=== PATIENT | female | born 1940 | race Caucasian/White ===

== ENCOUNTER 2016-11-03 10:45 | Inpatient (IN) | payer OTHER, MEDICARE ==
[~2016-11-03] VITALS: Ht 160 cm; Wt 61.5 kg
[2016-11-03] VITALS (7 sets, daily range): BP systolic 99–143; BP diastolic 57–79; PULSE 65–98; RESP 16–18; TEMP 97.8–98.3; O2SAT 96–98
[~2016-11-03 10:45] MED LIST: LEVO.05 PO; LORTA5 PO; LOVA20TA PO; MOTR200T PO; OMEP20TA39 PO
[2016-11-03] MEDS ORDERED: SODIUM CHLOR 0.9% 1000 ML INJ 1,000 ML IV SCH (11:20)
[2016-11-03] MEDS ORDERED: SODIUM CHLORIDE 0.9% FLUSH 10 ML FLUSH IVF PRN (11:30)
--- NOTE | 2016-11-03 11:35 | PD ---
HPI Chief Complaint: General Weakness Time Seen by Provider: 11:30 Travel History International Travel<30 days: No Contact w/Intl Traveler<30days: No Traveled to known affect area: No History of Present Illness HPI Patient is a 76-year-old female presenting to the emergency department for evaluation of nausea, vomiting, diarrhea. Patient has been having the symptoms for the last 3-4 days. Son is at bedside and reports that she has been having dark stools however she is on iron therapy for anemia. Patient denies any shortness of breath, chest pain, generalized pain. She does report a decreased appetite but for the most part is able to maintain oral intake. She did vomit this morning. Son reports a 12 pound weight loss over the last 2 months as well. He states that her legs get weak and she has fallen over the last 2 months. She has no injuries to report today. Her past medical history significant for Ahn's esophagus, anemia, peripheral artery disease with stent placement and ulcers. Patient currently takes Plavix. PFSH Past Medical History Hx Anticoagulant Therapy: Yes Cancer: No Cardiovascular Problems: No Diabetes: No Diminished Hearing: No Gastrointestinal Disorders: Yes (Barretts esophagus) GERD: Yes Genitourinary: No Hepatitis: No Hiatal Hernia: No Hypertension: No Immune Disorder: No Medical other: Yes (peripheral artery disease with stent placement) Musculoskeletal: Yes (neck surgery with titanium plates arthritis) Neurologic: No Psychiatric: No Reproductive: No Respiratory: No Immunizations Current: Yes Thyroid Disease: Yes Menopausal: Yes Past Surgical History Abdominal Surgery: Yes (right inguinal hernia repair) Body Medical Devices: hardware in the neck Joint Replacement: No Pacemaker: No Other Surgery: Yes Social History Alcohol Use: Yes (3 glasses of wine daily) Tobacco Use: No Substance Use: No Allergies-Medications (Allergen,Severity, Reaction): Coded Allergies: No Known Allergies (Unverified , 09/29/13) Reported Meds & Prescriptions Reported Meds & Active Scripts Active Reported Plavix (Clopidogrel Bisulfate) 75 Mg Tab 75 Mg PO DAILY Levothyroxine (Levothyroxine Sodium) 75 Mcg Tab 75 Mcg PO DAILY Lipitor (Atorvastatin Calcium) 40 Mg Tab 40 Mg PO DAILY Trazodone (Trazodone HCl) 50 Mg Tab 75 Mg PO HS Review of Systems Except as stated in HPI: all other systems reviewed are Neg General / Constitutional: No: Fever, Chills Eyes: No: Blurred Vision HENT: No: Headaches Cardiovascular: No: Chest Pain or Discomfort Respiratory: No: Shortness of Breath Gastrointestinal: Positive: Nausea, Vomiting, Diarrhea, Other (dark stool), No : Abdominal Pain Genitourinary: No: Dysuria Musculoskeletal: No: Myalgias Neurologic: Positive: Weakness, No: Dizziness, Syncope, Focal Abnormalities, Change in Mentation, Slurred Speech Physical Exam Narrative GENERAL: Thin, well-developed, alert elderly female. Resting comfortably in no acute distress. SKIN: Warm and dry. HEAD: Atraumatic. Normocephalic. EYES: Pupils equal and round. No scleral icterus. No injection or drainage. ENT: No nasal bleeding or discharge. Mucous membranes pink and moist. NECK: Trachea midline. No JVD. CARDIOVASCULAR: Regular rate and rhythm. RESPIRATORY: No accessory muscle use. Clear to auscultation. Breath sounds equal bilaterally. GASTROINTESTINAL: Abdomen soft, non-tender, nondistended. Hepatic and splenic margins not palpable. Positive bowel sounds, no rebound, no guarding RECTAL EXAM: No masses or tenderness, stool is brown. MUSCULOSKELETAL: Extremities without clubbing, cyanosis, or edema. No obvious deformities. NEUROLOGICAL: Awake and alert. No obvious cranial nerve deficits. Motor grossly within normal limits. Five out of 5 muscle strength in the arms and legs. Normal speech. PSYCHIATRIC: Appropriate mood and affect; insight and judgment normal. Data Data Last Documented VS Vital Signs Date Time Temp Pulse Resp B/P Pulse Ox O2 Delivery O2 Flow Rate FiO2 11/03/16 12:55 97.8 98 17 123/60 98 Room Air Orders Complete Blood Count With Diff (11/03/16 11:20) Comprehensive Metabolic Panel (11/03/16 11:20) Lipase (11/03/16 11:20) Prothrombin Time / Inr (Pt) (11/03/16 11:20) Act Partial Throm Time (Ptt) (11/03/16 11:20) Urinalysis - C+S If Indicated (11/03/16 11:20) Type And Screen (11/03/16 11:20) Cath For Specimen (11/03/16 11:20) Ecg Monitoring (11/03/16 11:20) Iv Access Insert/Monitor (11/03/16 11:20) Orthostatic Vital Signs (11/03/16 11:20) Oximetry (11/03/16 11:20) Sodium Chlor 0.9% 1000 Ml Inj (Ns 1000 M (11/03/16 11:20) Sodium Chloride 0.9% Flush (Ns Flush) (11/03/16 11:30) Lactic Acid (11/03/16 11:20) Chest, Single Ap (11/03/16 ) Electrocardiogram (11/03/16 ) Pantoprazole Inj (Protonix Inj) (11/03/16 12:15) Potassium Chlor 20 Meq Premix (Kcl 20 Me (11/03/16 12:45) Potassium Chloride (Kcl) (11/03/16 12:45) Magnesium (Mg) (11/03/16 13:17) Labs Laboratory Tests Test 11/03/16 11:39 White Blood Count 10.0 TH/MM3 Red Blood Count 4.23 MIL/MM3 Hemoglobin 13.9 GM/DL Hematocrit 41.5 % Mean Corpuscular Volume 98.2 FL Mean Corpuscular Hemoglobin 32.8 PG Mean Corpuscular Hemoglobin 33.4 % Concent Red Cell Distribution Width 19.1 % Platelet Count 387 TH/MM3 Mean Platelet Volume 8.3 FL Neutrophils (%) (Auto) 75.9 % Lymphocytes (%) (Auto) 9.7 % Monocytes (%) (Auto) 12.8 % Eosinophils (%) (Auto) 1.0 % Basophils (%) (Auto) 0.6 % Neutrophils # (Auto) 7.6 TH/MM3 Lymphocytes # (Auto) 1.0 TH/MM3 Monocytes # (Auto) 1.3 TH/MM3 Eosinophils # (Auto) 0.1 TH/MM3 Basophils # (Auto) 0.1 TH/MM3 CBC Comment DIFF FINAL Differential Comment Prothrombin Time 10.3 SEC Prothromb Time International 0.9 RATIO Ratio Activated Partial 24.6 SEC Thromboplast Time Urine Color YELLOW Urine Turbidity HAZY Urine pH 6.0 Urine Specific [place] 1.026 Urine Protein 30 mg/dL Urine Glucose (UA) NEG mg/dL Urine Ketones NEG mg/dL Urine Occult Blood NEG Urine Nitrite NEG Urine Bilirubin NEG Urine Urobilinogen LESS THAN 2.0 MG/DL Urine Leukocyte Esterase MOD Urine RBC 2 /hpf Urine WBC 3 /hpf Urine Squamous Epithelial <1 /hpf Cells Urine Transitional Epithelial <1 /hpf Cells Urine Bacteria RARE /hpf Urine Hyaline Casts 73 /lpf Urine Mucus FEW /lpf Microscopic Urinalysis Comment CULT NOT INDICATED Sodium Level 137 MEQ/L Potassium Level 2.4 MEQ/L Chloride Level 102 MEQ/L Carbon Dioxide Level 25.1 MEQ/L Anion Gap 10 MEQ/L Blood Urea Nitrogen 14 MG/DL Creatinine 1.25 MG/DL Estimat Glomerular Filtration 42 ML/MIN Rate Random Glucose 100 MG/DL Lactic Acid Level 1.9 mmol/L Calcium Level 9.7 MG/DL Total Bilirubin 0.6 MG/DL Aspartate Amino Transf 24 U/L (AST/SGOT) Alanine Aminotransferase 16 U/L (ALT/SGPT) Alkaline Phosphatase 114 U/L Total Protein 8.3 GM/DL Albumin 4.1 GM/DL Lipase 126 U/L Blood Type O NEGATIVE Antibody Screen NEGATIVE Blood Bank Comment [facility] Medical Decision Making Medical Screen Exam Complete: Yes Emergency Medical Condition: Yes Medical Record Reviewed: Yes Interpretation(s) Last Impressions Chest X-Ray 11/03/16 0000 Signed Impressions: Service Date/Time: Thursday, November 03, 2016 12:04 - CONCLUSION: No acute cardiopulmonary abnormality is identified. Den Jean MD Laboratory Tests Test 11/03/16 11:39 White Blood Count 10.0 TH/MM3 Red Blood Count 4.23 MIL/MM3 Hemoglobin 13.9 GM/DL Hematocrit 41.5 % Mean Corpuscular Volume 98.2 FL Mean Corpuscular Hemoglobin 32.8 PG Mean Corpuscular Hemoglobin 33.4 % Concent Red Cell Distribution Width 19.1 % Platelet Count 387 TH/MM3 Mean Platelet Volume 8.3 FL Neutrophils (%) (Auto) 75.9 % Lymphocytes (%) (Auto) 9.7 % Monocytes (%) (Auto) 12.8 % Eosinophils (%) (Auto) 1.0 % Basophils (%) (Auto) 0.6 % Neutrophils # (Auto) 7.6 TH/MM3 Lymphocytes # (Auto) 1.0 TH/MM3 Monocytes # (Auto) 1.3 TH/MM3 Eosinophils # (Auto) 0.1 TH/MM3 Basophils # (Auto) 0.1 TH/MM3 CBC Comment DIFF FINAL Differential Comment Prothrombin Time 10.3 SEC Prothromb Time International 0.9 RATIO Ratio Activated Partial 24.6 SEC Thromboplast Time Urine Color YELLOW Urine Turbidity HAZY Urine pH 6.0 Urine Specific [place] 1.026 Urine Protein 30 mg/dL Urine Glucose (UA) NEG mg/dL Urine Ketones NEG mg/dL Urine Occult Blood NEG Urine Nitrite NEG Urine Bilirubin NEG Urine Urobilinogen LESS THAN 2.0 MG/DL Urine Leukocyte Esterase MOD Urine RBC 2 /hpf Urine WBC 3 /hpf Urine Squamous Epithelial <1 /hpf Cells Urine Transitional Epithelial <1 /hpf Cells Urine Bacteria RARE /hpf Urine Hyaline Casts 73 /lpf Urine Mucus FEW /lpf Microscopic Urinalysis Comment CULT NOT INDICATED Sodium Level 137 MEQ/L Potassium Level 2.4 MEQ/L Chloride Level 102 MEQ/L Carbon Dioxide Level 25.1 MEQ/L Anion Gap 10 MEQ/L Blood Urea Nitrogen 14 MG/DL Creatinine 1.25 MG/DL Estimat Glomerular Filtration 42 ML/MIN Rate Random Glucose 100 MG/DL Lactic Acid Level 1.9 mmol/L Calcium Level 9.7 MG/DL Total Bilirubin 0.6 MG/DL Aspartate Amino Transf 24 U/L (AST/SGOT) Alanine Aminotransferase 16 U/L (ALT/SGPT) Alkaline Phosphatase 114 U/L Total Protein 8.3 GM/DL Albumin 4.1 GM/DL Lipase 126 U/L Blood Type O NEGATIVE Antibody Screen NEGATIVE Blood Bank Comment Vital Signs Date Time Temp Pulse Resp B/P Pulse Ox O2 Delivery O2 Flow Rate FiO2 11/03/16 11:14 75 18 98 Room Air 11/03/16 10:46 98.3 83 16 106/76 97 Room Air Differential Diagnosis Anemia versus metabolic abnormality versus GI bleed versus gastroenteritis versus other Narrative Course Patient is a 76-year-old female presenting to emergency department evaluation of nausea, vomiting, diarrhea and dark stools. Hemoccult is positive, patient' s vital signs are stable, labs ordered and pending. IV access established, patient placed on telemetry monitoring and continuous pulse oximetry. Per her son's report she has appointment with Dr. Cabrera on the for an upper and lower endoscopy Initial EKG shows sinus rhythm with a rate of 71 with a right bundle branch block. Prior EKG in 2013 reviewed, no RBBB at that time. Orthostatic vital signs are positive, patient's systolic went from 143 down to 99. CBC with hemoglobin of 10, improved from prior in September 2016 CMP with a K+ 2.4 IV and oral replacement ordered. UA reviewed with no acute findings. Lactic acid 1.9 1L NS ordered and given CXR no acute findings [facility] paged for admit. Dr. Devries accepted admit. Order placed for full inpatient admission due to GI bleed and hypokalemia. Pt and family made aware of findings and plan. Pt is agreeable. HemaPrompt Point of Care Fecal Specimen Occult Blood: Positive Diagnosis Primary Impression: GI bleed Qualified Code: K92.2 - Gastrointestinal hemorrhage, unspecified gastrointestinal hemorrhage type Additional Impressions: Hypokalemia Nausea and vomiting Qualified Code: R11.2 - Non-intractable vomiting with nausea, unspecified vomiting type Orthostatic hypotension Admitting Information Admitting Physician Requests: Admit Condition: Stable Lanie Williamson [facility] Nov 03, 2016 11:35
[2016-11-03 12:04] LABS: AUTOMATED NEUTROPHIL # 7.6 TH/MM3 (1.8-7.7); BASOPHIL # 0.1 TH/MM3 (0-0.2); BASOPHIL % 0.6 % (0.0-2.0); EOSINOPHIL # 0.1 TH/MM3 (0-0.4); HEMATOCRIT 41.5 % (35.0-46.0); HEMO FLAGS DIFF FINAL; LYMPH % 9.7 % (9.0-44.0); MEAN CELL VOLUME 98.2 FL (80.0-100.0); MEAN CORPUSCULAR HEMOGLOBIN 32.8 PG (27.0-34.0); MEAN CORPUSCULAR HGB CONC 33.4 % (32.0-36.0); MONO % 12.8 % (0.0-8.0); NEUT % 75.9 % (16.0-70.0); PLATELET COUNT 387 TH/MM3 (150-450); RED BLOOD COUNT 4.23 MIL/MM3 (4.00-5.30); RED CELL DISTRIBUTION WIDTH 19.1 % (11.6-17.2)
[2016-11-03 12:11] LABS: BACTERIA, URINE RARE /hpf; BLOOD, URINE NEG (NEG); GLUCOSE,URINE NEG (NEG); HYALINE CAST, URINE 73 /lpf (RARE); KETONE, URINE NEG (NEG); MUCUS URINE FEW /lpf (OCC); NITRITE,URINE NEG (NEG); SQUAMOUS EPITHELIAL CELL URINE <1 /hpf (0-5); TRANSITIONAL EPI CELLS, URINE <1 /hpf; URINE COLOR YELLOW (YELLW/STRAW)
[2016-11-03 12:12] LABS: APTT (PATIENT) 24.6 SEC (24.3-30.1); INTERNATIONAL NORMALIZED RATIO 0.9 RATIO; PROTHROMBIN TIME - PATIENT 10.3 SEC (9.8-11.6)
[2016-11-03] MEDS ORDERED: PANTOPRAZOLE SODIUM 40 MG VIAL IV PUSH ONE (12:15)
[2016-11-03] MEDS ORDERED: LIPI40TA PO (12:17)
[2016-11-03] MEDS ORDERED: LEVO75TA3 PO (12:17)
[2016-11-03] MEDS ORDERED: PLAV75TA29 PO (12:17)
[2016-11-03] MEDS ORDERED: TRAZ50TA12 PO (12:17)
[2016-11-03 12:24] LABS: COMMENT (UR) CULT NOT INDICATED; CULTURE IF INDICATED CULT NOT INDICATED
[2016-11-03 12:29] LABS: ALKALINE PHOSPHATASE 114 U/L (45-117); ALT (GPT) 16 U/L (10-53); ANION GAP 10 MEQ/L (5-15); AST (GOT) 24 U/L (15-37); BICARBONATE 25.1 MEQ/L (21.0-32.0); BLOOD UREA NITROGEN 14 MG/DL (7-18); CHLORIDE 102 MEQ/L (98-107); GLOMERULAR FILTRATION RATE 42 ML/MIN (>89); SODIUM (NA) 137 MEQ/L (136-145); TOTAL BILIRUBIN ADULT 0.6 MG/DL (0.2-1.0)
--- NOTE | 2016-11-03 12:36 | RADRPT ---
EXAM DATE/TIME: 11/03/2016 12:04 [facility] COMPARISON: No previous studies available for comparison. INDICATIONS : General weakness and vomiting. MEDICAL HISTORY : None. SURGICAL HISTORY : None. ENCOUNTER: Initial ACUITY: 3 days PAIN SCORE: 0/10 LOCATION: Bilateral chest FINDINGS: Underinflated AP view of the chest demonstrates a normal-sized cardiac silhouette with calcification of the aorta. There is a calcified granuloma in the left upper lobe. No effusion, consolidation, or p neumothorax is identified. The bones and soft tissues demonstrate no acute finding. Cervical spine moreno rdware is present. CONCLUSION: No acute cardiopulmonary abnormality is identified. Den Jean MD on November 03, 2016 at 12:34 Board Certified Radiologist. This report was verified electronically.
[2016-11-03 12:37] LABS: POTASSIUM 2.4 MEQ/L (3.5-5.1)
[2016-11-03] MEDS ORDERED: POTASSIUM CHLORIDE 20 MEQ CONTROLLED RELEASE TAB PO ONE ×2 (12:45→20:30)
[2016-11-03] MEDS: POTASSIUM CHLOR 20 MEQ PREMIX 100 ML IV SCH ×2 (12:51→16:20)
[2016-11-03] MEDS ORDERED: LACTULOSE SYRUP 20 GM/30 ML CUP PO PRN (13:30)
[2016-11-03] MEDS ORDERED: SODIUM CHLORIDE 0.9% FLUSH 10 ML FLUSH IV FLUSH PRN (13:30)
[2016-11-03] MEDS ORDERED: NALOXONE HCL 0.4 MG/ML AMP IV PRN (13:30)
[2016-11-03] MEDS ORDERED: BISACODYL 10 MG SUPP RECTAL PRN (13:30)
[2016-11-03] MEDS ORDERED: SENNOSIDES 8.6 MG TAB PO PRN (13:30)
[2016-11-03] MEDS ORDERED: MAGNESIUM HYDROXIDE SUSP 30 ML CUP PO PRN (13:30)
[2016-11-03] MEDS ORDERED: ONDANSETRON HCL 4 MG/2 ML VIAL IVP PRN (13:30)
[2016-11-03] MEDS: SODIUM CHLOR 0.9% 1000 ML INJ 1,000 ML IV SCH ×2 (14:37→21:01)
--- NOTE | 2016-11-03 14:43 | HHI.HP ---
[facility] Luis Barroso MD Admission Diagnosis GI BLEED, HYPOKALEMIA Diagnoses: Chief Complaint: nausea/vomiting/diarrhea/melena Travel History International Travel<30 Days: No Contact w/Intl Traveler <30 Da: No Traveled to Known Affected Are: No History of Present Illness Written by Alisa Gongora, acting as scribe for Dr. Devries on 11/03/16 at 14:46. This note was transcribed by scribe OVI Jarvis. I, Dr. Petar Devries personally performed the history, physical exam, and medical decision making; and confirmed the accuracy of the information in the transcribed note. Authenticated by Dr. Petar Devries on 11/03/16 at 23:57. 76-year-old female with history of Alzheimer's dementia, Ahn's esophagus, GERD, anemia, PAD s/p stents on Plavix, hypothyroidism, presents with a 3 week history of nausea, vomiting, and diarrhea. The patient is not the best historian secondary to dementia, therefore most of the history supplemented from son and daughter at bedside. Initially the patient states symptoms only going on for 3-4 days, however son at bedside reports symptoms going on for at least 3 weeks. She has had intractable nausea/vomiting and multiple episodes of diarrhea. She has had black watery stools but also reports being on iron replacement. Denies any hematemesis or hematochezia. She reports decreased appetite but has still been able to tolerate some oral intake. She reports 12lbs weight loss over the past month. She has been seeing gastroenterology Dr. Samuels, reportedly scheduled for outpatient CT abdomen soon and EGD/colonoscopy on November 16. This morning the patient's symptoms worsened, her son called Dr. Barroso's office who recommended she come to the ER. Her son also reports 2- 3 episodes recently where the patient has gotten up from bed or a chair, became extremely weak in the legs, and fell forward. One of the falls she hit the front of her face. These episodes always happen immediately after standing abruptly. The son is unsure if she actually loses consciousness or just becomes dizzy and falls. Of note, the family reports the patient's July 22, 2016 here at [place], and she has had some decline ever since, specifically not taking her medications as prescribed and drinking more alcohol than usual. The patient reports drinking 3-4 glasses a day however family suspects much more than this. Otherwise, the patient denies any other medical complaints at this time. Review of Systems ROS Limitations: Poor Historian Except as stated in HPI: all other systems reviewed are Neg Past Family Social History Past Medical History Alzheimer's disease, sees neurologist Dr. Jerry HUGHES, s/p stents by Dr. Mitchell Ahn's Esophagus Gastric ulcers Colon polyps Anemia Hypothyroidism Past Surgical History Cervical spine fusion Elbow hardware EGD/colonoscopies Peripheral arterial stents Reported Medications Reported Meds & Active Scripts Active Reported Plavix (Clopidogrel Bisulfate) 75 Mg Tab 75 Mg PO DAILY Levothyroxine (Levothyroxine Sodium) 75 Mcg Tab 75 Mcg PO DAILY Lipitor (Atorvastatin Calcium) 40 Mg Tab 40 Mg PO DAILY Trazodone (Trazodone HCl) 50 Mg Tab 75 Mg PO HS Allergies: Coded Allergies: No Known Allergies (Unverified , 09/29/13) Active Ordered Medications Current Medications Medications (Trade) Dose Ordered Sig/Vanna Route Start Time Stop Time Status Last Admin Sodium Chloride 2 ml 2 ml UNSCH PRN IVF 11/03/16 11:30 11/03/16 12:51 Potassium Chloride 100 ml @ 50 mls/hr Q2H IV 11/03/16 12:45 11/03/16 16:44 11/03/16 12:51 (NS 1000 ml Inj) 1,000 ml @ 100 mls/hr Q10H IV 11/03/16 13:18 11/03/16 14:37 (NS Flush) 2 ml UNSCH PRN IV FLUSH 11/03/16 13:30 (NS Flush) 2 ml BID IV FLUSH 11/03/16 21:00 (Tylenol) 650 mg Q4H PRN PO 11/03/16 13:30 (Zofran Inj) 4 mg Q6H PRN IVP 11/03/16 13:30 (Narcan Inj) 0.4 mg UNSCH PRN IV 11/03/16 13:30 (Therese-Colace) 1 tab BID PO 11/03/16 21:00 (Milk Of Magnesia Liq) 30 ml Q12H PRN PO 11/03/16 13:30 (Senokot) 17.2 mg Q12H PRN PO 11/03/16 13:30 (Dulcolax Supp) 10 mg DAILY PRN RECTAL 11/03/16 13:30 (Lactulose Liq) 30 ml DAILY PRN PO 11/03/16 13:30 (Lipitor) 40 mg DAILY PO 11/04/16 09:00 (Synthroid) 75 mcg DAILY@0600 PO 11/04/16 06:00 Family History Mother with hypertension and brain aneurysm Niece with aneurysm Uncles with heart disease Social History Denies tobacco use Drinks alcohol 3-4 glasses of wine per day (family suspects much more, probably double) Denies any illicit drug use Physical Exam Vital Signs Vital Signs Date Time Temp Pulse Resp B/P Pulse Ox O2 Delivery O2 Flow Rate FiO2 11/03/16 14:38 68 18 116/66 98 Room Air 11/03/16 12:55 97.8 98 17 123/60 98 Room Air 11/03/16 11:44 72 18 143/79 72 18 127/72 74 18 99/60 11/03/16 11:23 18 96 Room Air 11/03/16 11:14 75 18 98 Room Air 11/03/16 10:46 98.3 83 16 106/76 97 Room Air Physical Exam GENERAL: Well-nourished, well-developed pleasant elderly female patient in [facility]. SKIN: Warm and dry. No rash. HEAD: Normocephalic. Atraumatic. EYES: Pupils equal and round. No scleral icterus. No injection or drainage. ENT: No nasal bleeding or discharge. Mucous membranes pink and moist. NECK: Supple. Trachea midline. CARDIOVASCULAR: Regular rate and rhythm. S1, S2 noted. No murmur appreciated. RESPIRATORY: No accessory muscle use. Clear to auscultation. Breath sounds equal bilaterally. GASTROINTESTINAL: Abdomen soft, nondistended, RLQ point tenderness to palpation. Normoactive bowel sounds x4. MUSCULOSKELETAL: No obvious deformities. Extremities without clubbing, cyanosis , or edema. NEUROLOGICAL: Awake and alert. No obvious cranial nerve deficits. Motor grossly within normal limits. Normal speech. PSYCHIATRIC: Appropriate mood and affect; insight and judgment normal. RLQ TTP. Laboratory Laboratory Tests Test 11/03/16 11:39 White Blood Count 10.0 Red Blood Count 4.23 Hemoglobin 13.9 Hematocrit 41.5 Mean Corpuscular Volume 98.2 Mean Corpuscular Hemoglobin 32.8 Mean Corpuscular Hemoglobin 33.4 Concent Red Cell Distribution Width 19.1 Platelet Count 387 Mean Platelet Volume 8.3 Neutrophils (%) (Auto) 75.9 Lymphocytes (%) (Auto) 9.7 Monocytes (%) (Auto) 12.8 Eosinophils (%) (Auto) 1.0 Basophils (%) (Auto) 0.6 Neutrophils # (Auto) 7.6 Lymphocytes # (Auto) 1.0 Monocytes # (Auto) 1.3 Eosinophils # (Auto) 0.1 Basophils # (Auto) 0.1 CBC Comment DIFF FINAL Differential Comment Prothrombin Time 10.3 Prothromb Time International 0.9 Ratio Activated Partial 24.6 Thromboplast Time Urine Color YELLOW Urine Turbidity HAZY Urine pH 6.0 Urine Specific [place] 1.026 Urine Protein 30 Urine Glucose (UA) NEG Urine Ketones NEG Urine Occult Blood NEG Urine Nitrite NEG Urine Bilirubin NEG Urine Urobilinogen LESS THAN 2.0 Urine Leukocyte Esterase MOD Urine RBC 2 Urine WBC 3 Urine Squamous Epithelial <1 Cells Urine Transitional Epithelial <1 Cells Urine Bacteria RARE Urine Hyaline Casts 73 Urine Mucus FEW Microscopic Urinalysis Comment CULT NOT INDICATED Sodium Level 137 Potassium Level 2.4 Chloride Level 102 Carbon Dioxide Level 25.1 Anion Gap 10 Blood Urea Nitrogen 14 Creatinine 1.25 Estimat Glomerular Filtration 42 Rate Random Glucose 100 Lactic Acid Level 1.9 Calcium Level 9.7 Magnesium Level 2.7 Total Bilirubin 0.6 Aspartate Amino Transf 24 (AST/SGOT) Alanine Aminotransferase 16 (ALT/SGPT) Alkaline Phosphatase 114 Total Protein 8.3 Albumin 4.1 Lipase 126 Blood Type O NEGATIVE Antibody Screen NEGATIVE Blood Bank Comment Result Diagram: 11/03/16 1139 11/03/16 1139 Imaging Last Impressions Chest X-Ray 11/03/16 0000 Signed Impressions: Service Date/Time: Thursday, November 03, 2016 12:04 - CONCLUSION: No acute cardiopulmonary abnormality is identified. Den Jean MD Assessment and Plan Problem List: (1) Nausea and vomiting ICD Code: R11.2 Status: Acute (2) GI bleed ICD Code: K92.2 Status: Acute (3) Hypokalemia ICD Code: E87.6 Status: Acute (4) Orthostatic hypotension ICD Code: I95.1 Status: Acute Assessment and Plan 76-year-old female with history of Alzheimer's dementia, Ahn's esophagus, GERD, anemia, PAD s/p stents on Plavix, hypothyroidism, presents with a 3 week history of nausea, vomiting, and diarrhea. Abdominal Pain/Nausea/Vomiting/Diarrhea with suspect GI Bleeding: Hemoccult positive in the ED. Recently seeing gastroenterology Dr. Samuels, scheduled for outpatient CT abdomen and EGD/colonoscopy on 11/16; however given ongoing symptoms and dehydration, will initiate work up. -Hold patient's Plavix -Check abdominal/pelvis CT -Continue IV Protonix, IV Zofran prn -Give IVF hydration -check stool cultures, Cdiff -monitor CBC, currently hgb stable at 13.9 however suspect hemoconcentration with dehydration -Consult gastroenterology Dr. Samuels -regular diet for now, clear liquid diet after midnight Severe Hypokalemia: K 2.4. Secondary to GI losses as above -Given po and IV KCl replacement -Mag 2.7 -Repeat BMP/Mag in the am RADHA: Cr 1.25, no previously labs to compare however suspect RADHA with dehydration -give IVF -avoid nephrotoxins -monitor BMP Near-Syncope with Falls: suspect secondary to dehydration and orthostatic hypotension -orthostatic vitals reviewed, systolic drops from 143 to 99 upon standing -place elvia hose -start IVF hydration -PT consult -fall precautions -monitor on telemetry -will need to mortgage loan counselor on slow transitions from lying to sitting to standing Alcohol Abuse: patient reports drinking 3-4glasses of wine a day, family suspects much more than this -start on thiamine/folate/MV -CIWA protocol -monitor for withdrawal All other chronic medical conditions including hypothyroidism and Alzheimer's are stable; continue home medications as appropriate. DVT Prophylaxis: teds/SCDs. Avoid chemoprophylaxis with GI bleeding. 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 In the case of services not specified as inpatient-only, they are appropriately provided as inpatient services in accordance with the 2-midnight benchmark. Estimated LOS (days): 3 days is the estimated time the patient will need to remain in the hospital, assuming treatment plan goals are met and no additional complications. Post-Hospital Plan: Home Problem Qualifiers (1) Nausea and vomiting: Qualified Code: R11.2 - Non-intractable vomiting with nausea, unspecified vomiting type (2) GI bleed: Qualified Code: K92.2 - Gastrointestinal hemorrhage, unspecified gastrointestinal hemorrhage type Alisa Gongora PA-C Nov 03, 2016 14:43 Ellyn Devries DO Nov 03, 2016 23:58
[2016-11-03] MEDS ORDERED: IOHEXOL 350 MG/ML 10 ML VIAL (for RAD DIAG) IV ONE (15:39)
--- NOTE | 2016-11-03 16:47 | RADRPT ---
EXAM DATE/TIME: 11/03/2016 15:33 [facility] COMPARISON: No previous studies available for comparison. INDICATIONS : Vomiting with diarrhea for three weeks. IV CONTRAST: 75 cc Omnipaque 350 (iohexol) IV ORAL CONTRAST: Prescribed oral contrast ingested. RADIATION DOSE: 9.96 CTDIvol (mGy) MEDICAL HISTORY : Thyroid disease, Barretts Esophagus, Anemia. SURGICAL HISTORY : Inguinal hernia repair. Peripheral artery disease with stent. ENCOUNTER: Initial ACUITY: 1 day PAIN SCALE: 2/10 LOCATION: Bilateral lower quadrant TECHNIQUE: Volumetric scanning of the abdomen and pelvis was performed. Using automated exposure control and ad justment of the mA and/or kV according to patient size, radiation dose was kept as low as reasonably achievable to obtain optimal diagnostic quality images. DICOM format image data is available electro nically for review and comparison. FINDINGS: Lung bases are clear. Mild fatty liver. Spleen, adrenals, kidneys and pancreas unremarkable. There is a mild ileus. No obstruction, free fluid or free air. No acute bony abnormality. Some residu al contrast noted in the cecal region. CONCLUSION: 1. Mild ileus. No acute findings. Gonsalo Fuller MD on November 03, 2016 at 16:33 Board Certified Radiologist. This report was verified electronically.
[2016-11-03] MEDS ORDERED: LORazepam 2 MG TAB PO PRN (17:00)
[2016-11-03] MEDS ORDERED: LORazepam 2 MG/ML VIAL IV PUSH PRN ×4 (17:00)
[2016-11-03] MEDS ORDERED: LORazepam 1 MG TAB PO PRN (17:00)
[2016-11-03] MEDS ORDERED: FLUMAZENIL 0.5 MG/5 ML VIAL IV PUSH PRN (17:00)
[2016-11-03 18:25] LABS: C. DIFF EPI 027 PRESUMPTIVE NEGATIVE (NEGATIVE); C. DIFF TOXIN PCR NEGATIVE (NEGATIVE)
--- NOTE | 2016-11-03 18:30 | MB ---
cc: MANDIE MCGHEE M.D., LOUIS M. MD AHMED, SHAHABUDDIN DO DATE OF CONSULTATION 11/03/2016 ROOM [address] Ellyn Devries REASON FOR CONSULTATION Nausea, vomiting, diarrhea. HISTORY OF THE PRESENT ILLNESS This is a 76-year-old female known to the undersigned with a history of peptic ulcer disease and colon polyps requiring endoscopic mucosal resection in 2016. The patient was seen in our office October 28 by our physician's assistant professor of marine biology and Dr. Bledsoe. She has a history of chronic iron deficiency anemia that has been worked up in the past including pill camera study. She has been on oral iron supplements which tend to make her stools dark. She also was complaining of some right lower quadrant pain since July of this year. She was ordered to have a outpatient CT scan but has not yet done so as an outpatient but did have one this admission. I reviewed it with the radiologist and shows no definite pathology in the right lower quadrant but a possible mild ileus. She also has a history of colon polyps. The patient has had some dementia issues and has been depressed the last few months after losing her . She has been drinking wine two or three glasses daily. The history is somewhat vague. Apparently there was additional history given by the son to the admitting team. The patient has had some nausea and vomiting recently which she states started late last week. She had the nausea and vomiting along with shakiness and weakness for a few days and then over the weekend started having diarrhea. The diarrhea is watery and initially she did see some blood with it. She denies any significant abdominal pain just a mild discomfort the right lower quadrant. She has had the nausea and vomiting. She does have a history of gastroesophageal reflux disease and has been on a proton pump inhibitor. SOCIAL HISTORY The patient is recently . She does not smoke. She is a former smoker. She has been drinking wine daily and probably more than usual. She does admit that she has been drinking more since her . MEDICATIONS Her medications include: 1. Gabapentin 300 milligrams three times a day. 2. Lovastatin 40 mg daily. 3. Levothyroxine 75 mcg daily. 4. She has been taking Tylenol p.r.n. 5. Trazodone 50 mg at bedtime. 6. Iron supplement 325 mg daily. 7. Zoloft daily. 8. Omeprazole 20 mg daily. ALLERGIES NO KNOWN DRUG ALLERGIES. FAMILY HISTORY She has a brother with heart disease. Father had heart disease. Mother had a stroke and a sister with lung cancer. PAST MEDICAL HISTORY Her medical history, she has had: 1. Thyroid disease. 2. Hypercholesterolemia. 3. Peripheral vascular disease status post status stents, currently on Plavix. 4. History of gastroesophageal reflux disease. 5. History of dementia. REVIEW OF SYSTEMS Remarkable for the recent weakness and shakiness. She also has had nausea and vomiting and about a 12 pound weight loss. No fever or chills. No dysphagia. No urinary tract symptoms. PHYSICAL EXAMINATION GENERAL: Physical exam reveals a pleasant, well-developed female in no acute distress. VITAL SIGNS: Her blood pressure is 116/66, pulse 68, respirations 18 nonlabored, temperature is 97.8. HEENT: Sclerae anicteric. NECK: Supple without masses. LUNGS: Are clear to auscultation and percussion. CARDIOVASCULAR: Heart sounds are regular without murmur, gallop or rub. ABDOMEN: Soft and nondistended. No significant tenderness. No palpable masses. No organomegaly. Bowel sounds are slightly hyperactive. RECTAL: Deferred. EXTREMITIES: No cyanosis, clubbing or edema. She does have a small bruise over her left knee and she does admit that she fell recently. NEUROLOGIC: Pleasant affect with no gross motor deficits. LABORATORY DATA Lab work reveals a white count of 10 with a mild left shift. Hemoglobin is 13.9, platelet count is 387,000. INR 0.9. BUN is 14 with a creatinine of 1.25. Potassium is low at 2.4, lactic acid 1.9. Her LFTs were unremarkable. Albumin 4.1 with an elevated total protein of 8.3 with upper limit of normal being 8.2. Her lipase was normal 126. IMAGING Her chest x-ray showed no acute cardiopulmonary abnormality. Her CT of the abdomen and pelvis which I reviewed with radiologist showed a possible mild ileus otherwise unremarkable. IMPRESSION Nausea, vomiting and diarrhea. Patient with history of peptic ulcer disease from earlier this year. She underwent EGD in May of this year due to melena with anemia and had several gastric ulcers and erosions. At that time she had been taking NSAIDs including aspirin. She was scheduled for outpatient EGD and colonoscopy for [facility] 14. Etiology unclear. Recent exacerbation may be due to an enteric infection. Stool cultures for C diff and enteric pathogens has been ordered. The patient denies being on any antibiotics recently but her history is somewhat suspect. CT shows a possible mild ileus. No sign of obstruction. PLAN Agree with checking stool for enteric pathogens and will start on clear liquids. She states that she is hungry and would like to try eating something. She has also been ordered to have Protonix. Depending upon her initial clinical course and stool culture results, can consider moving up her EGD and colonoscopy and doing them while she is here. Dr. Dueñas will follow the patient after today. Thank you this consult. MD QASIM Roy/WILBUR /6:00 PM /6:14 PM
[2016-11-03] MEDS ORDERED: DOCUSATE SODIUM 50 MG/SENNA 8.6 MG TAB PO SCH (21:00)
[2016-11-03] MEDS: SODIUM CHLORIDE 0.9% FLUSH 10 ML FLUSH IV FLUSH SCH (21:00)
[2016-11-03] MEDS: DOCUSATE SODIUM 50 MG/SENNA 8.6 MG TAB PO SCH (21:00)
[2016-11-04] VITALS (8 sets, daily range): BP systolic 82–113; BP diastolic 48–70; PULSE 63–85; RESP 16–20; TEMP 97.5–98; O2SAT 93–99
[2016-11-04 03:21] LABS: AUTOMATED NEUTROPHIL # 4.8 TH/MM3 (1.8-7.7); BASOPHIL # 0.1 TH/MM3 (0-0.2); BASOPHIL % 0.7 % (0.0-2.0); EOSINOPHIL # 0.2 TH/MM3 (0-0.4); EOSINOPHIL % 2.3 % (0.0-4.0); HEMATOCRIT 31.4 % (35.0-46.0); HEMO FLAGS DIFF FINAL; LYMPHOCYTE # 1.5 TH/MM3 (1.0-4.8); MEAN CELL VOLUME 97.4 FL (80.0-100.0); MEAN CORPUSCULAR HEMOGLOBIN 32.7 PG (27.0-34.0); MEAN CORPUSCULAR HGB CONC 33.6 % (32.0-36.0); PLATELET COUNT 288 TH/MM3 (150-450); RED BLOOD COUNT 3.22 MIL/MM3 (4.00-5.30); RED CELL DISTRIBUTION WIDTH 19.1 % (11.6-17.2); WHITE BLOOD COUNT 7.6 TH/MM3 (4.0-11.0)
[2016-11-04 03:54] LABS: BICARBONATE 22.6 MEQ/L (21.0-32.0); MAGNESIUM 2.2 MG/DL (1.5-2.5)
[2016-11-04 04:00] LABS: POTASSIUM 2.7 MEQ/L (3.5-5.1)
[2016-11-04] MEDS ORDERED: POTASSIUM CHLORIDE 25 MEQ EFFERVESCENT TAB PO ONE (04:30)
[2016-11-04] MEDS: POTASSIUM CHLOR 20 MEQ PREMIX 100 ML IV SCH ×4 (04:37→11:15)
[2016-11-04] MEDS: LEVOTHYROXINE SODIUM 75 MCG TAB PO SCH (04:41)
[2016-11-04] MEDS: SODIUM CHLOR 0.9% 1000 ML INJ 1,000 ML IV SCH ×5 (04:48→21:52)
--- NOTE | 2016-11-04 06:47 | HHI.GIFU ---
GI Follow-up Note Consult Follow-up Subjective: Patient laying in bed comfortably, still having diarrhea. feels weak. stool negative for C-diff Objective: PHYSICAL EXAMINATION: Vitals signs stable No fever HEENT: Pupils round and reactive to light; normocephalic; atraumatic; no jaundice. Throat is clear. NECK: Neck is supple, no JVD, no lymphadenopathy. CHEST: Chest is clear to auscultation and percussion. CARDIAC: Regular rate and rhythm with no murmur gallop or rubs. ABDOMEN: Soft, nondistended, nontender; no hepatosplenomegaly; bowel sounds are present in all four quadrants. EXTREMITIES: No clubbing, cyanosis, or edema. SKIN: Normal; no rash; no jaundice. SUPERVISOR SALVAGE: No focal deficits; alert and oriented times three. Available Data (labs, X- Rays, Procedures) : reviewed. ASSESSMENT/PLAN: 1. Diarrhea unclear etiology 2. severe Hypokalemia 3. hx of colon polyps PLAN: 1. Continue to replace K 2. Will consider egd and colon for further eval while she's in hospital, can't do bowel prep until her K is improved. 3. Anticipate stabilize lytes today, bowel preparation tomorrow, and egd/colon on Wednesday. 3. Trial of full liquid diet It was a pleasure seeing Morenita Rodríguez. Thank you for this consult. Entered by: Blanca Valera MD Nov 04, 2016 6:47 am
[2016-11-04] MEDS: PANTOPRAZOLE SODIUM 40 MG VIAL IV PUSH SCH ×2 (07:31→21:50)
[2016-11-04] MEDS: THIAMINE HCL 100 MG TAB PO SCH (07:32)
[2016-11-04] MEDS: FOLIC ACID 1 MG TAB PO SCH (07:32)
[2016-11-04] MEDS: MULTIVITAMINS/MINERALS THERAPEUTIC TAB PO SCH (07:32)
[2016-11-04] MEDS: ATORVASTATIN 40 MG TAB PO SCH (07:32)
[2016-11-04] MEDS: SODIUM CHLORIDE 0.9% FLUSH 10 ML FLUSH IV FLUSH SCH ×2 (07:36→21:51)
[2016-11-04] MEDS: DOCUSATE SODIUM 50 MG/SENNA 8.6 MG TAB PO SCH ×2 (08:20→21:00)
[2016-11-04] MEDS ORDERED: POTASSIUM CHLORIDE 10 MEQ CONTROLLED RELEASE TAB PO ONE (09:15)
[2016-11-04] MEDS ORDERED: SODIUM CHLOR 0.9% 1000 ML INJ 1,000 ML IV ONE (09:45)
[2016-11-04] MEDS: LOPERAMIDE HCL 2 MG CAP PO PRN ×3 (10:02→21:50)
--- NOTE | 2016-11-04 11:43 | EKG ---
Date Performed: 11/03/2016 Time Performed: 11:25:27 PTAGE: 76 years EKG: Sinus rhythm RIGHT BUNDLE BRANCH BLOCK ABNORMAL ECG PREVIOUS TRACING : 09/29/2013 06.33 DOCTOR: Robert Edgar Interpretating Date/Time 11/04/2016 11:41:43
[2016-11-04 12:11] LABS: BICARBONATE 18.4 MEQ/L (21.0-32.0); POTASSIUM 3.5 MEQ/L (3.5-5.1)
--- NOTE | 2016-11-04 17:00 | HHI.PR ---
Subjective Remarks Follow up for diarrhea, hypotension, RADHA, severe hypokalemia. Patient is currently resting well in bed. She continues to have multiple episodes of watery diarrhea. Denies any fever, chills. Objective Vitals Vital Signs Date Time Temp Pulse Resp B/P Pulse Ox O2 Delivery O2 Flow Rate FiO2 11/04/16 12:00 97.5 74 20 82/52 94 Automatic Cuff 11/04/16 12:00 Room Air 11/04/16 08:50 Room Air 11/04/16 08:50 63 11/04/16 08:00 97.9 80 20 84/48 97 11/04/16 04:00 97.9 66 16 96/52 98 11/04/16 00:00 98.0 64 18 92/64 99 11/04/16 00:00 Room Air 11/03/16 20:00 67 11/03/16 20:00 98.1 65 16 102/57 97 11/03/16 20:00 Room Air 11/03/16 17:00 Room Air I/O 11/03/16 11/03/16 11/03/16 11/04/16 11/04/16 11/04/16 07:00 15:00 23:00 07:00 15:00 23:00 Intake Total 1250 ml 240 ml 3142 ml Balance 1250 ml 240 ml 3142 ml Intake Oral 240 ml 240 ml IV Total 1010 ml 3142 ml # Voids 2 2 # Bowel Movements 9 6 Result Diagram: 11/04/16 0301 11/04/16 1055 Imaging Last Impressions Chest X-Ray 11/03/16 0000 Signed Impressions: Service Date/Time: Thursday, November 03, 2016 12:04 - CONCLUSION: No acute cardiopulmonary abnormality is identified. Den Jean MD Abdomen/Pelvis CT 11/03/16 0000 Signed Impressions: Service Date/Time: Thursday, November 03, 2016 15:33 - CONCLUSION: 1. Mild ileus. No acute findings. Gonsalo Fuller MD Objective Remarks GENERAL: Alert, not in any distress. SKIN: Warm and dry. HEAD: Normocephalic. EYES: No scleral icterus. No injection or drainage. NECK: Supple, trachea midline. No JVD or lymphadenopathy. CARDIOVASCULAR: Regular rate and rhythm without murmurs, gallops, or rubs. RESPIRATORY: Breath sounds equal bilaterally. No accessory muscle use. GASTROINTESTINAL: Abdomen soft, non-tender, nondistended. MUSCULOSKELETAL: No cyanosis, or edema. BACK: Nontender without obvious deformity. No CVA tenderness. Procedures None. A/P Problem List: (1) Nausea and vomiting ICD Code: R11.2 Status: Acute (2) GI bleed ICD Code: K92.2 Status: Acute (3) Hypokalemia ICD Code: E87.6 Status: Acute (4) Orthostatic hypotension ICD Code: I95.1 Status: Acute Assessment and Plan 76-year-old female with history of Alzheimer's dementia, Ahn's esophagus, GERD, anemia, PAD s/p stents on Plavix, hypothyroidism, presents with a 3 week history of nausea, vomiting, and diarrhea. - Hypotension - Patient was originally seen today in the morning. Her BP was in the 80s systolic (Lowest 82/52). I evaluated patient who reports no chest pain, shortness of breath, fever, chills. She had persistent diarrhea. We initiated aggressive volume repletion. Patient received 3L of NS bolus and then 150-200cc/ hour NS. We also started patient on Imodium. I visited patient again in the afternoon. She continues to have diarrhea. After 3L of fluid, patient's blood pressure imrpoved to 96/70 (MAP 79) and 113/60 ( MAP 77). Lactic acid upon admission was 1.9 and repeat lactic acid today was 1.6. Procalcitonin was ordered but not reported yet. Additionally, this AM, patient's K+ was 2.7. We replaced potassium with IV and PO potassium. Repeat K+ was 3.5. In this patient , differential diagnosis of hypotension includes infectious etiology as well as more likely cause volume depletion due to diarrhea. Aggressive fluid resuscitation was necessary and close monitoring for any infectious etiology was also necessary to prevent deterioration of this patient's clinical condition. We planned to transfer patient to ICU if she did not respond to fluid resuscitation. I advised patient to abstain from all food for now any food causing her to have diarrhea. Small sips of water and ice chips would be fine. - Total critical care time spent more than 45 minutes including discussing with patient, family, RN. Other medical issues: Abdominal Pain/Nausea/Vomiting/Diarrhea with suspect GI Bleeding: Hemoccult positive in the ED. Recently seeing gastroenterology Dr. Samuels, scheduled for outpatient CT abdomen and EGD/colonoscopy on 11/16; however given ongoing symptoms and dehydration, will initiate work up. -Hold patient's Plavix -abdominal/pelvis CT shows no acute findings. -Continue IV Protonix, IV Zofran prn -Give IVF hydration -Stool cultures negative. C. Diff negative. -Hgb 13.9 --> 10.5. This change is likely due to volume contraction. Severe Hypokalemia: K 2.4. Secondary to GI losses as above -Given po and IV KCl replacement -Mag 2.7 --> 2.2 RADHA: Cr 1.25 --> 0.72 --> 0.59. Resolved. Likely due to volume depletion. Near-Syncope with Falls: suspect secondary to dehydration and orthostatic hypotension -orthostatic vitals reviewed, systolic drops from 143 to 99 upon standing -No further near syncope. Alcohol Abuse: patient reports drinking 3-4glasses of wine a day, family suspects much more than this -Continue thiamine/folate/MV -CIWA protocol Full code. SCDs. Problem Qualifiers (1) Nausea and vomiting: Qualified Code: R11.2 - Non-intractable vomiting with nausea, unspecified vomiting type (2) GI bleed: Qualified Code: K92.2 - Gastrointestinal hemorrhage, unspecified gastrointestinal hemorrhage type Ellyn Devries DO Nov 04, 2016 17:00
[2016-11-04] MEDS: POTASSIUM CHLORIDE 10 MEQ CONTROLLED RELEASE TAB PO SCH (21:51)
[2016-11-05] VITALS (7 sets, daily range): BP systolic 88–130; BP diastolic 50–63; PULSE 63–75; RESP 16–18; TEMP 97.5–98.7; O2SAT 94–100
[2016-11-05] MEDS: LEVOTHYROXINE SODIUM 75 MCG TAB PO SCH (05:45)
[2016-11-05] MEDS: SODIUM CHLOR 0.9% 1000 ML INJ 1,000 ML IV SCH ×4 (05:45→23:50)
[2016-11-05] MEDS: SODIUM CHLORIDE 0.9% FLUSH 10 ML FLUSH IV FLUSH SCH ×2 (09:00→21:54)
[2016-11-05] MEDS: DOCUSATE SODIUM 50 MG/SENNA 8.6 MG TAB PO SCH ×2 (09:00→21:55)
[2016-11-05] MEDS: MULTIVITAMINS/MINERALS THERAPEUTIC TAB PO SCH (09:52)
[2016-11-05] MEDS: POTASSIUM CHLORIDE 10 MEQ CONTROLLED RELEASE TAB PO SCH ×2 (09:53→21:55)
[2016-11-05] MEDS: THIAMINE HCL 100 MG TAB PO SCH (09:53)
[2016-11-05] MEDS: ATORVASTATIN 40 MG TAB PO SCH (09:53)
[2016-11-05] MEDS: FOLIC ACID 1 MG TAB PO SCH (09:54)
[2016-11-05] MEDS: PANTOPRAZOLE SODIUM 40 MG VIAL IV PUSH SCH ×2 (09:55→21:55)
[2016-11-05] MEDS: CHOLESTYRAMINE 4 GM PACKET PO SCH ×3 (12:39→23:51)
[2016-11-05] MEDS ORDERED: PEG (High)/E-LYTE SOLN 4000 ML BTL PO ONE (16:30)
--- NOTE | 2016-11-05 16:35 | HHI.GIFU ---
GI Follow-up Note Consult Follow-up Subjective: Patient laying in bed comfortably,still having diarrhea. Objective: PHYSICAL EXAMINATION: Vitals signs stable No fever HEENT: Pupils round and reactive to light; normocephalic; atraumatic; no jaundice. Throat is clear. NECK: Neck is supple, no JVD, no lymphadenopathy. CHEST: Chest is clear to auscultation and percussion. CARDIAC: Regular rate and rhythm with no murmur gallop or rubs. ABDOMEN: Soft, nondistended, nontender; no hepatosplenomegaly; bowel sounds are present in all four quadrants. EXTREMITIES: No clubbing, cyanosis, or edema. SKIN: Normal; no rash; no jaundice. SLIDE DEVELOPER: No focal deficits; alert and oriented times three. Available Data (labs, X- Rays, Procedures) : ASSESSMENT/PLAN: 1. Diarrhea stool negative for infection. 2. hypo K replaced. PLAN: 1. NPO after MN 2. Bowel prep today 3. EGD and Colonoscopy tomorrow. It was a pleasure seeing Morenita Rodríguez. Thank you for this consult. Entered by: Blanca Valera MD Nov 05, 2016 16:35
[2016-11-05 16:55] LABS: BASOPHIL % 0.6 % (0.0-2.0); EOSINOPHIL # 0.1 TH/MM3 (0-0.4); EOSINOPHIL % 2.2 % (0.0-4.0); HEMATOCRIT 29.7 % (35.0-46.0); HEMO FLAGS DIFF FINAL; LYMPH % 17.2 % (9.0-44.0); MEAN CELL VOLUME 99.7 FL (80.0-100.0); MEAN CORPUSCULAR HEMOGLOBIN 32.9 PG (27.0-34.0); MONO % 14.2 % (0.0-8.0); NEUT % 65.8 % (16.0-70.0); PLATELET COUNT 253 TH/MM3 (150-450); RED BLOOD COUNT 2.98 MIL/MM3 (4.00-5.30); RED CELL DISTRIBUTION WIDTH 19.1 % (11.6-17.2); WHITE BLOOD COUNT 6.1 TH/MM3 (4.0-11.0)
[2016-11-05 17:11] LABS: BICARBONATE 22.5 MEQ/L (21.0-32.0); POTASSIUM 3.3 MEQ/L (3.5-5.1)
--- NOTE | 2016-11-05 18:42 | HHI.PR ---
Subjective Remarks Follow up for diarrhea, hypotension, RADHA, severe hypokalemia. Patient continues to have significant number of diarrheal episodes. No fever, chills. Any oral intake precipitates diarrhea. Objective Vitals Vital Signs Date Time Temp Pulse Resp B/P Pulse Ox O2 Delivery O2 Flow Rate FiO2 11/05/16 16:00 Room Air 11/05/16 16:00 98.6 69 18 118/58 100 11/05/16 12:00 98.7 67 18 110/58 97 11/05/16 12:00 Room Air 11/05/16 08:06 98.0 68 18 88/50 95 11/05/16 08:00 66 11/05/16 08:00 Room Air 11/05/16 04:00 Room Air 11/05/16 04:00 98.3 70 16 100/54 11/05/16 00:00 Room Air 11/05/16 00:00 97.6 75 16 112/56 94 11/04/16 20:00 67 11/04/16 20:00 98.0 85 18 103/55 93 11/04/16 20:00 Room Air 11/04/16 19:36 113/60 I/O 11/04/16 11/04/16 11/04/16 11/05/16 11/05/16 11/05/16 06:59 14:59 22:59 06:59 14:59 22:59 Intake Total 240 ml 3862 ml 1980 ml 320 ml Output Total 350 ml 800 ml Balance 240 ml 3512 ml 1980 ml -480 ml Intake Oral 240 ml 720 ml 480 ml 320 ml IV Total 3142 ml 1500 ml Output Urine Total 350 ml 800 ml # Voids 2 8 7 # Bowel Movements 6 8 8 9 Result Diagram: 11/05/16 1610 11/05/16 1610 Imaging Last Impressions Chest X-Ray 11/03/16 0000 Signed Impressions: Service Date/Time: Thursday, November 03, 2016 12:04 - CONCLUSION: No acute cardiopulmonary abnormality is identified. Den Jean MD Abdomen/Pelvis CT 11/03/16 0000 Signed Impressions: Service Date/Time: Thursday, November 03, 2016 15:33 - CONCLUSION: 1. Mild ileus. No acute findings. Gonsalo Fuller MD Objective Remarks GENERAL: Alert, not in any distress. SKIN: Warm and dry. HEAD: Normocephalic. EYES: No scleral icterus. No injection or drainage. NECK: Supple, trachea midline. No JVD or lymphadenopathy. CARDIOVASCULAR: Regular rate and rhythm without murmurs, gallops, or rubs. RESPIRATORY: Breath sounds equal bilaterally. No accessory muscle use. GASTROINTESTINAL: Abdomen soft, non-tender, nondistended. MUSCULOSKELETAL: No cyanosis, or edema. BACK: Nontender without obvious deformity. No CVA tenderness. Procedures None. A/P Problem List: (1) Nausea and vomiting ICD Code: R11.2 Status: Acute (2) GI bleed ICD Code: K92.2 Status: Acute (3) Hypokalemia ICD Code: E87.6 Status: Acute (4) Orthostatic hypotension ICD Code: I95.1 Status: Acute Assessment and Plan 76-year-old female with history of Alzheimer's dementia, Ahn's esophagus, GERD, anemia, PAD s/p stents on Plavix, hypothyroidism, presents with a 3 week history of nausea, vomiting, and diarrhea. - Intractable diarrhea - Possible GI bleed - Hemoccult positive in the ED. - Recently seeing gastroenterology Dr. Samuels, scheduled for outpatient CT abdomen and EGD/colonoscopy on 11/16 - Hold patient's Plavix - abdominal/pelvis CT shows no acute findings. - Continue IV Protonix, IV Zofran prn - Continue aggressive IV hydration - Stool cultures negative. C. Diff negative. - Hgb 13.9 --> 10.5 --> 9.8 - Continue imodium. Start Cholestyramine as well. - Hypotension - most likely due to volume depletion from diarrhea. - Discussed at length with Dr. Dueñas (GI) who suggested possibility of microscopic colitis. - Severe Hypokalemia: K 2.4. Secondary to GI losses as above -Given po and IV KCl replacement -Mag 2.7 --> 2.2 - K+ improved to 3.5, dropped to 3.3 today. - Will replace with IV KCL in the AM. RADHA: Cr 1.25 --> 0.72 --> 0.59 --> 0.52. Resolved. Likely due to volume depletion. - Near-Syncope with Falls: suspect secondary to dehydration and orthostatic hypotension -orthostatic vitals reviewed, systolic drops from 143 to 99 upon standing -No further near syncope. - Alcohol Abuse: patient reports drinking 3-4glasses of wine a day, family suspects much more than this -Continue thiamine/folate/MV -CIWA protocol Full code. SCDs. Problem Qualifiers (1) Nausea and vomiting: Qualified Code: R11.2 - Non-intractable vomiting with nausea, unspecified vomiting type (2) GI bleed: Qualified Code: K92.2 - Gastrointestinal hemorrhage, unspecified gastrointestinal hemorrhage type Ellyn Devries DO Nov 05, 2016 18:42
[2016-11-06] VITALS (8 sets, daily range): BP systolic 105–136; BP diastolic 58–73; PULSE 59–68; RESP 16–20; TEMP 97.4–98.6; O2SAT 96–100
[2016-11-06] MEDS: SODIUM CHLOR 0.9% 1000 ML INJ 1,000 ML IV SCH (04:59)
[2016-11-06] MEDS: LEVOTHYROXINE SODIUM 75 MCG TAB PO SCH (05:06)
[2016-11-06] MEDS: ACETAMINOPHEN 325 MG TAB PO PRN ×3 (05:06→23:14)
[2016-11-06] MEDS: CHOLESTYRAMINE 4 GM PACKET PO SCH ×4 (05:06→23:14)
[2016-11-06] MEDS: POTASSIUM CHLOR 20 MEQ PREMIX 100 ML IV SCH ×2 (08:53→12:17)
[2016-11-06] MEDS: SODIUM CHLORIDE 0.9% FLUSH 10 ML FLUSH IV FLUSH SCH ×2 (08:57→21:03)
[2016-11-06] MEDS: PANTOPRAZOLE SODIUM 40 MG VIAL IV PUSH SCH ×2 (08:57→21:01)
[2016-11-06] MEDS: MULTIVITAMINS/MINERALS THERAPEUTIC TAB PO SCH ×2 (08:58→09:00)
[2016-11-06] MEDS: ATORVASTATIN 40 MG TAB PO SCH ×2 (08:58→09:00)
[2016-11-06] MEDS: FOLIC ACID 1 MG TAB PO SCH ×2 (08:58→09:00)
[2016-11-06] MEDS: THIAMINE HCL 100 MG TAB PO SCH ×2 (08:58→09:00)
[2016-11-06] MEDS: DOCUSATE SODIUM 50 MG/SENNA 8.6 MG TAB PO SCH ×2 (08:58→21:00)
[2016-11-06 11:01] LABS: AUTOMATED NEUTROPHIL # 3.6 TH/MM3 (1.8-7.7); BASOPHIL % 0.8 % (0.0-2.0); EOSINOPHIL # 0.1 TH/MM3 (0-0.4); EOSINOPHIL % 2.7 % (0.0-4.0); HEMATOCRIT 30.6 % (35.0-46.0); HEMO FLAGS DIFF FINAL; LYMPH % 16.5 % (9.0-44.0); LYMPHOCYTE # 0.9 TH/MM3 (1.0-4.8); MEAN CELL VOLUME 99.2 FL (80.0-100.0); MEAN CORPUSCULAR HEMOGLOBIN 32.8 PG (27.0-34.0); MONO % 13.8 % (0.0-8.0); NEUT % 66.2 % (16.0-70.0); PLATELET COUNT 243 TH/MM3 (150-450); RED BLOOD COUNT 3.08 MIL/MM3 (4.00-5.30); RED CELL DISTRIBUTION WIDTH 18.9 % (11.6-17.2); WHITE BLOOD COUNT 5.4 TH/MM3 (4.0-11.0)
[2016-11-06 11:35] LABS: BICARBONATE 25.1 MEQ/L (21.0-32.0); MAGNESIUM 1.4 MG/DL (1.5-2.5); POTASSIUM 3.5 MEQ/L (3.5-5.1)
--- NOTE | 2016-11-06 13:36 | HHI.PR ---
Subjective Remarks Follow up for diarrhea, hypotension, RADHA, severe hypokalemia. Patient is doing well. Diarrhea appears to be improving. No fever, chills. BP has been within reasonable range. Last BP 136 systolic. Objective Vitals Vital Signs Date Time Temp Pulse Resp B/P Pulse Ox O2 Delivery O2 Flow Rate FiO2 11/06/16 12:42 Room Air 11/06/16 12:00 98.2 62 18 136/66 96 11/06/16 08:00 97.8 61 18 105/73 96 11/06/16 08:00 Room Air 11/06/16 05:47 20 11/06/16 04:00 97.8 60 16 109/59 98 11/06/16 04:00 Room Air 11/06/16 00:00 Room Air 11/06/16 00:00 98.6 68 16 111/58 100 11/05/16 20:00 97.5 63 18 130/63 100 11/05/16 20:00 Room Air 11/05/16 20:00 65 11/05/16 16:00 Room Air 11/05/16 16:00 98.6 69 18 118/58 100 I/O 11/05/16 11/05/16 11/05/16 11/06/16 11/06/16 11/06/16 07:00 15:00 23:00 07:00 15:00 23:00 Intake Total 1500 ml 320 ml 1382 ml 2400 ml Output Total 800 ml Balance 1500 ml -480 ml 1382 ml 2400 ml Intake Oral 0 ml 320 ml 240 ml 0 ml IV Total 1500 ml 1142 ml 2400 ml Output Urine Total 800 ml # Voids 3 6 4 # Bowel Movements 3 9 6 4 Result Diagram: 11/06/16 1006 11/06/16 1006 Imaging Last Impressions Chest X-Ray 11/03/16 0000 Signed Impressions: Service Date/Time: Thursday, November 03, 2016 12:04 - CONCLUSION: No acute cardiopulmonary abnormality is identified. Den Jean MD Abdomen/Pelvis CT 11/03/16 0000 Signed Impressions: Service Date/Time: Thursday, November 03, 2016 15:33 - CONCLUSION: 1. Mild ileus. No acute findings. Gonsalo Fuller MD Objective Remarks GENERAL: Alert, not in any distress. SKIN: Warm and dry. HEAD: Normocephalic. EYES: No scleral icterus. No injection or drainage. NECK: Supple, trachea midline. No JVD or lymphadenopathy. CARDIOVASCULAR: Regular rate and rhythm without murmurs, gallops, or rubs. RESPIRATORY: Breath sounds equal bilaterally. No accessory muscle use. GASTROINTESTINAL: Abdomen soft, non-tender, nondistended. MUSCULOSKELETAL: No cyanosis, or edema. BACK: Nontender without obvious deformity. No CVA tenderness. Procedures None. A/P Problem List: (1) Nausea and vomiting ICD Code: R11.2 Status: Acute (2) GI bleed ICD Code: K92.2 Status: Acute (3) Hypokalemia ICD Code: E87.6 Status: Acute (4) Orthostatic hypotension ICD Code: I95.1 Status: Acute Assessment and Plan 76-year-old female with history of Alzheimer's dementia, Ahn's esophagus, GERD, anemia, PAD s/p stents on Plavix, hypothyroidism, presents with a 3 week history of nausea, vomiting, and diarrhea. - Intractable diarrhea - Possible GI bleed - Hemoccult positive in the ED. - Recently seeing gastroenterology Dr. Samuels, scheduled for outpatient CT abdomen and EGD/colonoscopy on 11/16 - Hold patient's Plavix - abdominal/pelvis CT shows no acute findings. - Continue IV Protonix, IV Zofran prn - Stool cultures negative. C. Diff negative. - Hgb 13.9 --> 10.5 --> 9.8 - Continue Imodium and Cholestyramine as well. - Discussed at length with Dr. Dueñas (GI) on 11/05/2016 who suggested possibility of microscopic colitis. - Hypotension - most likely due to volume depletion from diarrhea. Hypotension resolved. - Severe Hypokalemia: K 2.4. Secondary to GI losses as above -Given po and IV KCl replacement -Mag 2.7 --> 2.2 - K+ improved 3.3 --> 3.5. - Currently receiving IV KCL. - Hypocalcemia - Calcium 7.5. We will infuse one gram of Calcium gluconate. - Mild Hypernatremia - sodium increasing gradually 143 --> 146 --> 147. Patient is likely have free water deficits. - Will switch to IV 1/2 NS for today. Patient can likely come off IV fluid by tomorrow morning. - RADHA: Cr 1.25 --> 0.72 --> 0.59 --> 0.52. Resolved. Likely due to volume depletion. - Near-Syncope with Falls: suspect secondary to dehydration and orthostatic hypotension -orthostatic vitals reviewed, systolic drops from 143 to 99 upon standing -No further near syncope. - Alcohol Abuse: patient reports drinking 3-4glasses of wine a day, family suspects much more than this -Continue thiamine/folate/MV -CIWA protocol Full code. SCDs. Problem Qualifiers (1) Nausea and vomiting: Qualified Code: R11.2 - Non-intractable vomiting with nausea, unspecified vomiting type (2) GI bleed: Qualified Code: K92.2 - Gastrointestinal hemorrhage, unspecified gastrointestinal hemorrhage type Ellyn Devries DO Nov 06, 2016 13:36
--- NOTE | 2016-11-06 14:04 | HHI.FF ---
Face to Face Verification Diagnosis: (1) Diarrhea in adult patient (2) Hypotension (3) Hypokalemia Physical Therapy Order: Evaluate and Treat, Improve ambulation, Strength and gait training Home Health Nursing Order: Medical education Signs/symptoms of disease process Medication education-adverse effect Nursing assessment with vital signs I have seen patient Morenita Rodríguez on 11/06/16. My clinical findings support the need for the requested home health care services because: Ltd mobility - disease progression Patient has SOB Deconditioned w/ increased weakness Need for psychosocial assistance Impaired cognition/judgement High risk of falls I certify that my clinical findings support that this patient is homebound because: Unsteady gait/balance Unsafe to leave home unassisted Need for psychosocial assistance Unable to use public transportation Ellyn Devries DO Nov 06, 2016 14:04
[2016-11-06] MEDS ORDERED: CALCIUM GLUCONATE INJ 1 GM in SODIUM CHLORIDE 0.9% INJ 100 ML IV ONE (15:00)
[2016-11-06] MEDS ORDERED: PROPOFOL 200 MG/20 ML AMP IV ONE (16:22)
--- NOTE | 2016-11-06 16:58 | GIPROC ---
[facility] [address] [facility]. [facility], [address] EGD PROCEDURE REPORT EXAM DATE: 11/06/2016 PATIENT NAME: Morenita Rodríguez MR#: [id number] BIRTHDATE: 1940 STATUS: inpatient ATTENDING: Blanca Dueñas MD VISIT ID: [id number] INTERNAL CONTROLS CONSULTANT: Aubrey Monroe Schulman, Neal, and Nivia Jones ORDER #: [id number] INDICATIONS: The patient is a 76 yr old female here for an EGD due to diagnostic procedure and diarrhea. PROCEDURE PERFORMED: EGD w/ biopsy MEDICATIONS: None and Per Anesthesia. ASA CLASS: Class IV PHYSICAL EXAM: normal CONSENT: The patient understands the risks and benefits of the procedure and understands that these risks include, but are not limited to: sedation, allergic reaction, infection, perforation and/or bleeding. Alternative means of evaluation and treatment include, among others: physical exam, x-rays, and/or surgical intervention. The patient elects to proceed with this endoscopic procedure. DESCRIPTION OF PROCEDURE: for proper function. Hand hygiene and appropriate measures for infection prevention was taken. After the risks, benefits and alternatives of the procedure were thoroughly explained, Informed consent was verified, confirmed and timeout was successfully executed by the treatment team. The ENDYMIONax [id number] endoscope was introduced through the mouth and advanced to the second portion of the duodenum. The instrument was slowly withdrawn as the mucosa was fully examined. ESOPHAGUS: The mucosa of the esophagus appeared normal. STOMACH: There was mild gastritis in the gastric body. A biopsy was performed using cold forceps. Sample obtained for helicobacter pylori testing. The stomach otherwise appeared normal. DUODENUM: The duodenal mucosa appeared normal in the ampulla and 2nd part duodenum. Cold forceps biopsies were taken in the bulb and second portion. Retroflexed views revealed a hiatal hernia The gastroscope was then slowly withdrawn and removed. COMPLICATIONS: There were no complications. IMPRESSIONS: 1. The esophagus appeared normal 2. There was mild gastritis in the gastric body; biopsy was performed 3. The stomach otherwise appeared normal 4. Normal duodenal mucosa in the ampulla and 2nd part duodenum 5. Retroflexed views revealed a hiatal hernia RECOMMENDATIONS: 1. Await biopsy results. Biopsy results will not be ready for 7-10 days. If you don't hear from us in two weeks, call our office for biopsy results. 2. Avoid NSAIDS PATIENT CONDITION: stable DISPOSITION: Inpatient REPEAT EXAM: NONE Blanca Dueñas MD eSigned: Blanca Dueñas MD 11/06/2016 4:57 PM cc: PATIENT NAME: Morenita Rodríguez MR#: [id number]
[2016-11-06] MEDS ORDERED: DO NOT ADM ANY ANTICOAGULANT DRUGS PRN (16:59)
--- NOTE | 2016-11-06 17:03 | GIPROC ---
[facility] [address] [facility]. [facility], [address] COLONOSCOPY PROCEDURE REPORT EXAM DATE: 11/06/2016 PATIENT NAME: Morenita Rodríguez MR #: [id number] BIRTHDATE: 1940 ENDOSCOPIST: Blanca Dueñas MD ORDER #: [id number] BILINGUAL CUSTOMER SERVICE SPECIALIST: Lenny Joshi Wilcox-Hassen, Alice, and Aubrey Monroe STATUS: inpatient INDICATIONS: The patient is a 76 yr old female here for a colonoscopy due to chronic diarrhea and unexplained diarrhea PROCEDURE PERFORMED: Colonoscopy with biopsy MEDICATIONS: None and Per Anesthesia. PREP QUALITY: poor PREP TYPE:GoLytely ESTIMATED BLOOD LOSS: None CONSENT: The patient understands the risks and benefits of the procedure and understands that these risks include, but are not limited to: sedation, allergic reaction, infection, perforation and/or bleeding. Alternative means of evaluation and treatment include, among others: physical exam, x-rays, and/or surgical intervention. The patient elects to proceed with this endoscopic procedure. medical equipment was checked for proper function. Hand hygiene and appropriate measures for infection prevention was taken. After the risks, benefits and alternatives of the procedure were thoroughly explained, Informed consent was verified, confirmed and timeout was successfully executed by the treatment team. A digital exam was performed The Pentax [id number] endoscope was introduced through the anus and advanced to the cecum, which was identified by both the appendix and ileocecal valve. The instrument was then slowly withdrawn as the colon was fully examined. COLON FINDINGS: The colonic mucosa appeared normal in the rectum, sigmoid colon, descending colon, at the splenic flexure, in the transverse colon, at the hepatic flexure, in the ascending colon, at the appendiceal orifice, cecum, and ileocecal valve. Multiple random biopsies of the area were performed. Moderate diverticulosis was noted in the sigmoid colon. Retroflexed views revealed internal hemorrhoids The scope was then completely withdrawn from the patient and the procedure terminated. PROCEDURE WITHDRAWAL TIME:10minutes ADVERSE EVENTS: There were no complications. IMPRESSIONS: 1. The colonic mucosa appeared normal in the rectum, sigmoid colon, descending colon, at the splenic flexure, in the transverse colon, at the hepatic flexure, in the ascending colon, at the appendiceal orifice, cecum, and ileocecal valve; multiple random biopsies of the area were performed 2. Moderate diverticulosis was noted in the sigmoid colon 3. Retroflexed views revealed internal hemorrhoids 4. Was performed RECOMMENDATIONS: 1. Await biopsy results. Biopsy results will not be ready for 7-10 days. If you don't hear from us in two weeks, call our office for results. 2. Start diet as tolerated RECALL: Colonoscopy, pending biopsy results Blanca Dueñas MD eSigned: Blanca Dueñas MD 11/06/2016 5:02 PM cc:
--- NOTE | 2016-11-06 17:50 | HHI.GIFU ---
GI Follow-up Note Consult Follow-up S/P EGD and Colon No acute pathology found, random biopsies taken for microscopic colitis. ASSESSMENT/PLAN: 1. Trial of diet as tolerated 2. Ok to continue imodium. 3. ok to continue Questran one packet daily 4. Await Bx results. It was a pleasure seeing Morenita Rodríguez. Thank you for this consult. Entered by: Blanca Valera MD Nov 06, 2016 17:50
[2016-11-06] MEDS: SODIUM CHLOR 0.45% 1000 ML INJ 1,000 ML IV SCH (21:04)
[2016-11-07] VITALS: BP 124/59; PULSE 59; RESP 16; TEMP 98.2; O2SAT 96
[2016-11-07] MEDS: SODIUM CHLOR 0.45% 1000 ML INJ 1,000 ML IV SCH ×2 (01:33→12:09)
[2016-11-07 04:00] VITALS: BP 117/57; PULSE 60; RESP 18; TEMP 98.3; O2SAT 95
[2016-11-07] MEDS: CHOLESTYRAMINE 4 GM PACKET PO SCH ×4 (05:23→23:23)
[2016-11-07] MEDS: LEVOTHYROXINE SODIUM 75 MCG TAB PO SCH (05:23)
[2016-11-07 08:00] VITALS: BP 106/53; PULSE 61; RESP 20; TEMP 97.7; O2SAT 95
[2016-11-07] MEDS: THIAMINE HCL 100 MG TAB PO SCH (08:20)
[2016-11-07] MEDS: MULTIVITAMINS/MINERALS THERAPEUTIC TAB PO SCH (08:20)
[2016-11-07] MEDS: SODIUM CHLORIDE 0.9% FLUSH 10 ML FLUSH IV FLUSH SCH ×2 (08:21→20:55)
[2016-11-07] MEDS: FOLIC ACID 1 MG TAB PO SCH (08:21)
[2016-11-07] MEDS: ATORVASTATIN 40 MG TAB PO SCH (08:21)
[2016-11-07] MEDS: PANTOPRAZOLE SODIUM 40 MG VIAL IV PUSH SCH ×2 (08:21→20:55)
[2016-11-07] MEDS: ACETAMINOPHEN 325 MG TAB PO PRN (08:25)
[2016-11-07] MEDS: DOCUSATE SODIUM 50 MG/SENNA 8.6 MG TAB PO SCH (08:27)
[2016-11-07 11:39] LABS: BICARBONATE 23.8 MEQ/L (21.0-32.0)
[2016-11-07 12:00] VITALS: BP 92/53; PULSE 64; RESP 20; TEMP 98; O2SAT 96
[2016-11-07 12:07] LABS: POTASSIUM 2.8 MEQ/L (3.5-5.1)
[2016-11-07] MEDS: LOPERAMIDE HCL 2 MG CAP PO PRN (12:07)
[2016-11-07] MEDS: POTASSIUM CHLOR 20 MEQ PREMIX 100 ML IV SCH ×2 (12:49→17:43)
[2016-11-07] MEDS ORDERED: POTASSIUM CHLORIDE 25 MEQ EFFERVESCENT TAB PO ONE (13:00)
[2016-11-07 16:00] VITALS: BP 115/54; PULSE 64; RESP 20; TEMP 98; O2SAT 95
--- NOTE | 2016-11-07 16:42 | HHI.PR ---
Subjective Remarks The patient was resting comfortably in bed. She wanted to go home soon. She said she has been having a lot of diarrhea. She has noted some blood in her stool. She has been eating well. Family at the bedside. Objective Vitals Vital Signs Date Time Temp Pulse Resp B/P Pulse Ox O2 Delivery O2 Flow Rate FiO2 11/07/16 16:00 98.0 64 20 115/54 95 11/07/16 12:00 98.0 64 20 92/53 96 11/07/16 08:10 Room Air 11/07/16 08:00 97.7 61 20 106/53 95 11/07/16 04:00 98.3 60 18 117/57 95 11/07/16 04:00 Room Air 11/07/16 00:10 20 11/07/16 00:00 Room Air 11/07/16 00:00 98.2 59 16 124/59 96 11/06/16 20:00 98.1 66 18 116/58 99 11/06/16 20:00 Room Air 11/06/16 18:39 97.4 59 20 131/64 100 11/06/16 18:14 98 11/06/16 17:51 Room Air 11/06/16 17:15 65 19 135/53 98 Room Air 11/06/16 17:02 97.4 61 25 162/72 96 Room Air I/O 11/06/16 11/06/16 11/06/16 11/07/16 11/07/16 11/07/16 07:00 15:00 23:00 07:00 15:00 23:00 Intake Total 2400 ml 0 ml 1047 ml 2090 ml 480 ml Output Total 800 ml 0 ml Balance 2400 ml -800 ml 1047 ml 2090 ml 480 ml Intake Oral 0 ml 0 ml 960 ml 480 ml IV Total 2400 ml 247 ml 1130 ml Other 800 ml Output Urine Total 800 ml Emesis 0 ml # Voids 4 6 9 # Bowel Movements 4 4 2 7 2 Result Diagram: 11/06/16 1006 11/07/16 0915 Imaging Last Impressions Chest X-Ray 11/03/16 0000 Signed Impressions: Service Date/Time: Thursday, November 03, 2016 12:04 - CONCLUSION: No acute cardiopulmonary abnormality is identified. Den Jean MD Abdomen/Pelvis CT 11/03/16 0000 Signed Impressions: Service Date/Time: Thursday, November 03, 2016 15:33 - CONCLUSION: 1. Mild ileus. No acute findings. Gonsalo Fuller MD Objective Remarks GENERAL: Resting comfortably. SKIN: Warm and dry. HEAD: Normocephalic. EYES: No scleral icterus. No injection or drainage. NECK: Supple, trachea midline. No JVD or lymphadenopathy. CARDIOVASCULAR: Regular rate and rhythm without murmurs, gallops, or rubs. RESPIRATORY: Breath sounds equal bilaterally. No accessory muscle use. GASTROINTESTINAL: Abdomen soft, slightly tender in the right lower quadrant, nondistended. MUSCULOSKELETAL: No cyanosis, or edema. BACK: Nontender without obvious deformity. No CVA tenderness. NEURO: No gross deficits. PSYCH: Mood and affect appropriate. Procedures None. Medications and IVs Current Medications Medications (Trade) Dose Ordered Sig/Vanna Route Start Time Stop Time Status Last Admin (NS Flush) 2 ml UNSCH PRN IV FLUSH 11/03/16 13:30 (NS Flush) 2 ml BID IV FLUSH 11/03/16 21:00 11/07/16 08:21 (Tylenol) 650 mg Q4H PRN PO 11/03/16 13:30 11/07/16 08:25 (Zofran Inj) 4 mg Q6H PRN IVP 11/03/16 13:30 (Narcan Inj) 0.4 mg UNSCH PRN IV 11/03/16 13:30 (Milk Of Magnesia Liq) 30 ml Q12H PRN PO 11/03/16 13:30 (Senokot) 17.2 mg Q12H PRN PO 11/03/16 13:30 (Dulcolax Supp) 10 mg DAILY PRN RECTAL 11/03/16 13:30 (Lipitor) 40 mg DAILY PO 11/04/16 09:00 11/07/16 08:21 (Synthroid) 75 mcg DAILY@0600 PO 11/04/16 06:00 11/07/16 05:23 (Protonix Inj) 40 mg Q12H IV PUSH 11/04/16 09:00 11/07/16 08:21 (Therese-Colace) 2 tab BID PO 11/03/16 21:00 11/05/16 21:55 (Romazicon Inj) 0.2 mg Q1M PRN IV PUSH 11/03/16 17:00 (Ativan) 1 mg Q4H PRN PO 11/03/16 17:00 (Ativan Inj) 1 mg Q4H PRN IV PUSH 11/03/16 17:00 (Ativan) 2 mg Q2H PRN PO 11/03/16 17:00 (Ativan Inj) 2 mg Q2H PRN IV PUSH 11/03/16 17:00 (Ativan Inj) 2 mg Q1H PRN IV PUSH 11/03/16 17:00 (Ativan Inj) 2 mg Q15M PRN IV PUSH 11/03/16 17:00 (Folate) 1 mg DAILY PO 11/04/16 09:00 11/09/16 08:59 11/07/16 08:21 (Vitamin B1) 100 mg DAILY PO 11/04/16 09:00 11/07/16 08:20 (Theragran M Tab) 1 tab DAILY PO 11/04/16 09:00 11/09/16 08:59 11/07/16 08:20 (Imodium) 2 mg Q4H PRN PO 11/04/16 10:00 11/07/16 12:07 (Questran 4 Gm Pkt) 4 gm Q6HR PO 11/05/16 12:00 11/07/16 12:06 Miscellaneous Information ALL NURSING DEPARTME... UNSCH PRN .XX 11/06/16 16:59 11/07/16 16:58 (KCl 20 Meq Premix Inj) 100 ml @ 50 mls/hr Q2H IV 11/07/16 13:00 11/07/16 16:59 11/07/16 12:49 A/P Problem List: (1) Nausea and vomiting ICD Code: R11.2 Status: Acute (2) GI bleed ICD Code: K92.2 Status: Acute (3) Hypokalemia ICD Code: E87.6 Status: Acute (4) Orthostatic hypotension ICD Code: I95.1 Status: Acute Assessment and Plan 76-year-old female with history of Alzheimer's dementia, Ahn's esophagus, GERD, anemia, PAD s/p stents on Plavix, hypothyroidism, presents with a 3 week history of nausea, vomiting, and diarrhea. Intractable diarrhea/ Possible GI bleed Hemoccult positive in the ED. Recently seeing gastroenterology Dr. Samuels, scheduled for outpatient CT abdomen and EGD/colonoscopy on 11/16. Abdominal/ pelvis CT shows no acute findings. Stool cultures negative. C. Diff negative. Hgb 13.9 --> 10.5 --> 9.8. - Continue Imodium and Cholestyramine as well. - Discussed with Dr. Dueñas (GI) on 11/05/2016 who suggested possibility of microscopic colitis. S/p EGD which revealed gastritis. Follow pathology. - Hold patient's Plavix. - Continue IV Protonix, IV Zofran prn. Hypotension Most likely due to volume depletion from diarrhea. - Hypotension resolved. Severe Hypokalemia Secondary to GI losses as above - Given po and IV KCl replacement. - check mg and phos levels. Near-Syncope with falls Suspect secondary to dehydration and orthostatic hypotension. Orthostatic vitals reviewed, systolic drops from 143 to 99 upon standing. - No further near syncope. Alcohol Abuse Patient reports drinking 3-4 glasses of wine a day, family suspects much more than this. - Continue thiamine/folate/MV. - CIWA protocol. Full code. SCDs. Discharge Planning Awaiting clinical improvement Problem Qualifiers (1) Nausea and vomiting: Qualified Code: R11.2 - Non-intractable vomiting with nausea, unspecified vomiting type (2) GI bleed: Qualified Code: K92.2 - Gastrointestinal hemorrhage, unspecified gastrointestinal hemorrhage type Macario Ray DO Nov 07, 2016 16:42
--- NOTE | 2016-11-07 17:18 | HHI.GIFU ---
GI Follow-up Note Consult Follow-up Subjective: Patient laying in bed comfortably, no new complaints still having diarrhea. s/p EGD and Colon s/p Bx Objective: PHYSICAL EXAMINATION: Vitals signs stable No fever HEENT: Pupils round and reactive to light; normocephalic; atraumatic; no jaundice. Throat is clear. NECK: Neck is supple, no JVD, no lymphadenopathy. CHEST: Chest is clear to auscultation and percussion. CARDIAC: Regular rate and rhythm with no murmur gallop or rubs. ABDOMEN: Soft, nondistended, nontender; no hepatosplenomegaly; bowel sounds are present in all four quadrants. EXTREMITIES: No clubbing, cyanosis, or edema. SKIN: Normal; no rash; no jaundice. COKE DRAWER HAND: No focal deficits; alert and oriented times three. Available Data (labs, X- Rays, Procedures) : reviewed ASSESSMENT/PLAN: 1. diarrhea unclear etiology suspect microscopic colitis pending bx from colonoscopy PLAN: 1. Continue questran twice per day 2. if bx positive for microscopic colitis then will start entacort 9 mg po daily x8 wks. 3. will start lomotil one tab twice per day . It was a pleasure seeing Morenita Rodríguez. Thank you for this consult. Entered by: Blanca Valera MD Nov 07, 2016 17:18
[2016-11-07 20:00] VITALS: BP 145/72; PULSE 65; RESP 18; TEMP 98.7; O2SAT 95
[2016-11-07] MEDS: DIPHENOXYLATE/ATROPINE 2.5 MG/0.025 MG TAB PO SCH (20:54)
[2016-11-07 21:31] LABS: BICARBONATE 24.9 MEQ/L (21.0-32.0); POTASSIUM 3.8 MEQ/L (3.5-5.1)
[2016-11-08] VITALS (7 sets, daily range): BP systolic 88–123; BP diastolic 52–64; PULSE 58–66; RESP 16–20; TEMP 97.9–98.8; O2SAT 92–97
[2016-11-08] MEDS: LEVOTHYROXINE SODIUM 75 MCG TAB PO SCH (06:32)
[2016-11-08] MEDS: CHOLESTYRAMINE 4 GM PACKET PO SCH ×4 (06:32→23:02)
[2016-11-08] MEDS: FOLIC ACID 1 MG TAB PO SCH (08:50)
[2016-11-08] MEDS: THIAMINE HCL 100 MG TAB PO SCH (08:50)
[2016-11-08] MEDS: MULTIVITAMINS/MINERALS THERAPEUTIC TAB PO SCH (08:50)
[2016-11-08] MEDS: DIPHENOXYLATE/ATROPINE 2.5 MG/0.025 MG TAB PO SCH ×2 (08:50→20:16)
[2016-11-08] MEDS: PANTOPRAZOLE SODIUM 40 MG VIAL IV PUSH SCH (08:50)
[2016-11-08] MEDS: SODIUM CHLORIDE 0.9% FLUSH 10 ML FLUSH IV FLUSH SCH ×2 (08:50→20:16)
[2016-11-08] MEDS: ATORVASTATIN 40 MG TAB PO SCH (08:50)
[2016-11-08] MEDS: ACETAMINOPHEN 325 MG TAB PO PRN ×2 (12:06→23:01)
--- NOTE | 2016-11-08 13:21 | HHI.GIFU ---
GI Follow-up Note Consult Follow-up Subjective: Patient laying in bed comfortably, no new complaints still having diarrhea slightly improved. Objective: PHYSICAL EXAMINATION: Vitals signs stable No fever HEENT: Pupils round and reactive to light; normocephalic; atraumatic; no jaundice. Throat is clear. NECK: Neck is supple, no JVD, no lymphadenopathy. CHEST: Chest is clear to auscultation and percussion. CARDIAC: Regular rate and rhythm with no murmur gallop or rubs. ABDOMEN: Soft, nondistended, nontender; no hepatosplenomegaly; bowel sounds are present in all four quadrants. EXTREMITIES: No clubbing, cyanosis, or edema. SKIN: Normal; no rash; no jaundice. HOISTMAN: No focal deficits; alert and oriented times three. Available Data (labs, X- Rays, Procedures) : ASSESSMENT/PLAN: 1. Diarrhea unclear etiology PLAN: 1. START Lomotil one tab bid 2. Questran one packet TID 3. Pending Colon bx path 4. Pt still symptomatic, with weakness, and diarrhea, anticipate one more day prior to discharge. It was a pleasure seeing Morenita Rdoríguez. Thank you for this consult. Entered by: Blanca Valera MD Nov 08, 2016 13:21
[2016-11-08] MEDS ORDERED: DIPHENOXYLATE/ATROPINE 2.5 MG/0.025 MG TAB PO SCH (13:30)
--- NOTE | 2016-11-08 14:25 | HHI.PR ---
Subjective Remarks The patient reports her diarrhea is a little bit better. She says her pain is much improved and almost gone. She does report a chronic pain in the right lower quadrant that has been bothering her on and off for the past 6 months. Has been going to the bathroom. No other acute complaints. Objective Vitals Vital Signs Date Time Temp Pulse Resp B/P Pulse Ox O2 Delivery O2 Flow Rate FiO2 11/08/16 12:00 98.6 58 20 112/64 95 11/08/16 08:10 Room Air 11/08/16 08:00 98.6 65 20 107/52 95 11/08/16 04:00 98.8 65 16 106/62 92 11/08/16 03:48 Room Air 11/08/16 00:00 Room Air 11/08/16 00:00 98.5 60 16 123/59 95 11/07/16 20:00 Room Air 11/07/16 20:00 98.7 65 18 145/72 95 11/07/16 16:00 98.0 64 20 115/54 95 I/O 11/07/16 11/07/16 11/07/16 11/08/16 11/08/16 11/08/16 07:00 15:00 23:00 07:00 15:00 23:00 Intake Total 2090 ml 480 ml 1903 ml 240 ml Output Total 0 ml Balance 2090 ml 480 ml 1903 ml 240 ml Intake Oral 960 ml 480 ml 480 ml 240 ml IV Total 1130 ml 1423 ml Emesis 0 ml # Voids 6 9 4 2 4 # Bowel Movements 2 7 6 0 5 Result Diagram: 11/06/16 1006 11/07/162033 Imaging Last Impressions Chest X-Ray 11/03/16 0000 Signed Impressions: Service Date/Time: Thursday, November 03, 2016 12:04 - CONCLUSION: No acute cardiopulmonary abnormality is identified. Den Jean MD Abdomen/Pelvis CT 11/03/16 0000 Signed Impressions: Service Date/Time: Thursday, November 03, 2016 15:33 - CONCLUSION: 1. Mild ileus. No acute findings. Gonsalo Fuller MD Objective Remarks GENERAL: Resting comfortably. SKIN: Warm and dry. HEAD: Normocephalic. EYES: No scleral icterus. No injection or drainage. NECK: Supple, trachea midline. No JVD or lymphadenopathy. CARDIOVASCULAR: Regular rate and rhythm without murmurs, gallops, or rubs. RESPIRATORY: Breath sounds equal bilaterally. No accessory muscle use. GASTROINTESTINAL: Abdomen soft, nontender, nondistended. MUSCULOSKELETAL: No cyanosis, or edema. BACK: Nontender without obvious deformity. No CVA tenderness. NEURO: No gross deficits. PSYCH: Mood and affect appropriate. Procedures None. Medications and IVs Current Medications Medications (Trade) Dose Ordered Sig/Vanna Route Start Time Stop Time Status Last Admin (NS Flush) 2 ml UNSCH PRN IV FLUSH 11/03/16 13:30 (NS Flush) 2 ml BID IV FLUSH 11/03/16 21:00 11/08/16 08:50 (Tylenol) 650 mg Q4H PRN PO 11/03/16 13:30 11/08/16 12:06 (Zofran Inj) 4 mg Q6H PRN IVP 11/03/16 13:30 (Narcan Inj) 0.4 mg UNSCH PRN IV 11/03/16 13:30 (Milk Of Magnesia Liq) 30 ml Q12H PRN PO 11/03/16 13:30 (Lipitor) 40 mg DAILY PO 11/04/16 09:00 11/08/16 08:50 (Synthroid) 75 mcg DAILY@0600 PO 11/04/16 06:00 11/08/16 06:32 (Romazicon Inj) 0.2 mg Q1M PRN IV PUSH 11/03/16 17:00 (Ativan) 1 mg Q4H PRN PO 11/03/16 17:00 (Ativan Inj) 1 mg Q4H PRN IV PUSH 11/03/16 17:00 (Ativan) 2 mg Q2H PRN PO 11/03/16 17:00 (Ativan Inj) 2 mg Q2H PRN IV PUSH 11/03/16 17:00 (Ativan Inj) 2 mg Q1H PRN IV PUSH 11/03/16 17:00 (Ativan Inj) 2 mg Q15M PRN IV PUSH 11/03/16 17:00 (Folate) 1 mg DAILY PO 11/04/16 09:00 11/09/16 08:59 11/08/16 08:50 (Vitamin B1) 100 mg DAILY PO 11/04/16 09:00 11/08/16 08:50 (Theragran M Tab) 1 tab DAILY PO 11/04/16 09:00 11/09/16 08:59 11/08/16 08:50 (Imodium) 2 mg Q4H PRN PO 11/04/16 10:00 11/07/16 12:07 (Questran 4 Gm Pkt) 4 gm Q6HR PO 11/05/16 12:00 11/08/16 06:32 (Lomotil Tab) 1 tab BID PO 11/07/16 21:00 11/08/16 08:50 A/P Problem List: (1) Nausea and vomiting ICD Code: R11.2 Status: Acute (2) GI bleed ICD Code: K92.2 Status: Acute (3) Hypokalemia ICD Code: E87.6 Status: Acute (4) Orthostatic hypotension ICD Code: I95.1 Status: Acute Assessment and Plan 76-year-old female with history of Alzheimer's dementia, Ahn's esophagus, GERD, anemia, PAD s/p stents on Plavix, hypothyroidism, presents with a 3 week history of nausea, vomiting, and diarrhea. Intractable diarrhea/ Possible GI bleed Hemoccult positive in the ED. Recently seeing gastroenterology Dr. Samuels, scheduled for outpatient CT abdomen and EGD/colonoscopy on 11/16. Abdominal/ pelvis CT shows no acute findings. Stool cultures negative. C. Diff negative. Diarrhea improving. - Continue Imodium and Cholestyramine as well. Lomotil added. - Discussed with Dr. Dueñas (GI) on 11/05/2016 who suggested possibility of microscopic colitis. S/p EGD which revealed gastritis. Follow pathology. - Hold patient's Plavix. Hypotension Most likely due to volume depletion from diarrhea. - Hypotension resolved. Severe Hypokalemia Secondary to GI losses as above - Given po and IV KCl replacement. - check mg and phos levels. Near-Syncope with falls Suspect secondary to dehydration and orthostatic hypotension. Orthostatic vitals reviewed, systolic drops from 143 to 99 upon standing. No further near syncope. - would d/c with home health PT. Alcohol Abuse Patient reports drinking 3-4 glasses of wine a day, family suspects much more than this. - Continue thiamine/folate/MV. - CIWA protocol. Full code. SCDs. Discharge Planning Anticipate discharge in morning with home health physical therapy Problem Qualifiers (1) Nausea and vomiting: Qualified Code: R11.2 - Non-intractable vomiting with nausea, unspecified vomiting type (2) GI bleed: Qualified Code: K92.2 - Gastrointestinal hemorrhage, unspecified gastrointestinal hemorrhage type Macario Ray DO Nov 08, 2016 14:25
[2016-11-08 14:28] LABS: HEMATOCRIT 31.5 % (35.0-46.0); MEAN CELL VOLUME 98.9 FL (80.0-100.0); MEAN CORPUSCULAR HEMOGLOBIN 32.9 PG (27.0-34.0); MEAN CORPUSCULAR HGB CONC 33.2 % (32.0-36.0); PLATELET COUNT 221 TH/MM3 (150-450); RED BLOOD COUNT 3.19 MIL/MM3 (4.00-5.30); RED CELL DISTRIBUTION WIDTH 18.1 % (11.6-17.2); REVIEW FLAG FINAL; WHITE BLOOD COUNT 7.2 TH/MM3 (4.0-11.0)
[2016-11-08 14:53] LABS: BICARBONATE 24.3 MEQ/L (21.0-32.0); MAGNESIUM 1.5 MG/DL (1.5-2.5); POTASSIUM 3.4 MEQ/L (3.5-5.1)
[2016-11-08] MEDS: LOPERAMIDE HCL 2 MG CAP PO PRN (17:48)
[2016-11-09 00:31] VITALS: BP 104/53
[2016-11-09 04:00] VITALS: BP 108/51; PULSE 63; RESP 14; TEMP 98.3; O2SAT 94
[2016-11-09] MEDS: CHOLESTYRAMINE 4 GM PACKET PO SCH ×3 (06:00→17:12)
[2016-11-09] MEDS: LEVOTHYROXINE SODIUM 75 MCG TAB PO SCH (06:03)
[2016-11-09 08:00] VITALS: BP 106/58; PULSE 69; RESP 20; TEMP 98; O2SAT 95
[2016-11-09 09:02] LABS: HEMATOCRIT 32.2 % (35.0-46.0); MEAN CORPUSCULAR HEMOGLOBIN 32.3 PG (27.0-34.0); PLATELET COUNT 240 TH/MM3 (150-450); RED BLOOD COUNT 3.28 MIL/MM3 (4.00-5.30); RED CELL DISTRIBUTION WIDTH 17.9 % (11.6-17.2); REVIEW FLAG FINAL
[2016-11-09] MEDS: SODIUM CHLORIDE 0.9% FLUSH 10 ML FLUSH IV FLUSH SCH ×2 (09:24→21:31)
[2016-11-09] MEDS: ATORVASTATIN 40 MG TAB PO SCH (09:26)
[2016-11-09] MEDS: ACETAMINOPHEN 325 MG TAB PO PRN ×2 (09:26→23:14)
[2016-11-09] MEDS: THIAMINE HCL 100 MG TAB PO SCH (09:26)
[2016-11-09] MEDS: DIPHENOXYLATE/ATROPINE 2.5 MG/0.025 MG TAB PO SCH ×2 (09:27→21:31)
[2016-11-09 09:58] LABS: BICARBONATE 24.6 MEQ/L (21.0-32.0); MAGNESIUM 1.7 MG/DL (1.5-2.5); POTASSIUM 3.2 MEQ/L (3.5-5.1)
[2016-11-09] MEDS ORDERED: POTASSIUM CHLORIDE 25 MEQ EFFERVESCENT TAB PO ONE (10:45)
[2016-11-09 12:00] VITALS: BP 90/90; PULSE 59; RESP 20; TEMP 98.1; O2SAT 96
--- NOTE | 2016-11-09 12:13 | HHI.PR ---
Subjective Remarks The patient says she has had 3 bowel movements so far this morning. She felt like she was given have another one. She still feels a little bit weak. She wants to go home soon. She is tolerating a diet. Objective Vitals Vital Signs Date Time Temp Pulse Resp B/P Pulse Ox O2 Delivery O2 Flow Rate FiO2 11/09/16 08:00 98.0 69 20 106/58 95 11/09/16 04:00 98.3 63 14 108/51 94 11/09/16 00:31 104/53 11/08/16 23:17 97.9 66 20 88/61 92 11/08/16 23:04 Room Air 11/08/16 20:00 Room Air 11/08/16 18:49 97.9 64 20 95/54 97 11/08/16 16:00 98.4 62 20 100/53 92 I/O 11/08/16 11/08/16 11/08/16 11/09/16 11/09/16 11/09/16 07:00 15:00 23:00 07:00 15:00 23:00 Intake Total 240 ml 480 ml 240 ml 240 ml Output Total 400 ml Balance 240 ml 480 ml 240 ml 240 ml -400 ml Intake Oral 240 ml 480 ml 240 ml 240 ml Output Urine Total 400 ml # Voids 2 7 2 2 # Bowel Movements 0 7 2 2 Result Diagram: 11/09/16 0836 11/09/16 0836 Imaging Last Impressions Chest X-Ray 11/03/16 0000 Signed Impressions: Service Date/Time: Thursday, November 03, 2016 12:04 - CONCLUSION: No acute cardiopulmonary abnormality is identified. Den Jean MD Abdomen/Pelvis CT 11/03/16 0000 Signed Impressions: Service Date/Time: Thursday, November 03, 2016 15:33 - CONCLUSION: 1. Mild ileus. No acute findings. Gnosalo Fuller MD Objective Remarks GENERAL: Resting comfortably. SKIN: Warm and dry. HEAD: Normocephalic. EYES: No scleral icterus. No injection or drainage. NECK: Supple, trachea midline. No JVD or lymphadenopathy. CARDIOVASCULAR: Regular rate and rhythm without murmurs, gallops, or rubs. RESPIRATORY: Breath sounds equal bilaterally. No accessory muscle use. GASTROINTESTINAL: Abdomen soft, nontender, nondistended. MUSCULOSKELETAL: No cyanosis, or edema. BACK: Nontender without obvious deformity. No CVA tenderness. NEURO: No gross deficits. PSYCH: Mood and affect appropriate. Procedures None. Medications and IVs Current Medications Medications (Trade) Dose Ordered Sig/Vanna Route Start Time Stop Time Status Last Admin (NS Flush) 2 ml UNSCH PRN IV FLUSH 11/03/16 13:30 (NS Flush) 2 ml BID IV FLUSH 11/03/16 21:00 11/09/16 09:24 (Tylenol) 650 mg Q4H PRN PO 11/03/16 13:30 11/09/16 09:26 (Zofran Inj) 4 mg Q6H PRN IVP 11/03/16 13:30 (Narcan Inj) 0.4 mg UNSCH PRN IV 11/03/16 13:30 (Milk Of Magnesia Liq) 30 ml Q12H PRN PO 11/03/16 13:30 (Lipitor) 40 mg DAILY PO 11/04/16 09:00 11/09/16 09:26 (Synthroid) 75 mcg DAILY@0600 PO 11/04/16 06:00 11/09/16 06:03 (Romazicon Inj) 0.2 mg Q1M PRN IV PUSH 11/03/16 17:00 (Ativan) 1 mg Q4H PRN PO 11/03/16 17:00 (Ativan Inj) 1 mg Q4H PRN IV PUSH 11/03/16 17:00 (Ativan) 2 mg Q2H PRN PO 11/03/16 17:00 (Ativan Inj) 2 mg Q2H PRN IV PUSH 11/03/16 17:00 (Ativan Inj) 2 mg Q1H PRN IV PUSH 11/03/16 17:00 (Ativan Inj) 2 mg Q15M PRN IV PUSH 11/03/16 17:00 (Vitamin B1) 100 mg DAILY PO 11/04/16 09:00 11/09/16 09:26 (Imodium) 2 mg Q4H PRN PO 11/04/16 10:00 11/08/16 17:48 (Questran 4 Gm Pkt) 4 gm Q6HR PO 11/05/16 12:00 11/08/16 23:02 (Lomotil Tab) 1 tab BID PO 11/07/16 21:00 11/09/16 09:27 A/P Problem List: (1) Nausea and vomiting ICD Code: R11.2 Status: Acute (2) GI bleed ICD Code: K92.2 Status: Acute (3) Hypokalemia ICD Code: E87.6 Status: Acute (4) Orthostatic hypotension ICD Code: I95.1 Status: Acute Assessment and Plan Intractable diarrhea/ GIB Hemoccult positive in the ED. Recently seeing gastroenterology Dr. Samuels, scheduled for outpatient CT abdomen and EGD/colonoscopy on 11/16. Abdominal/ pelvis CT shows no acute findings. Stool cultures negative. C. Diff negative. Diarrhea improving but still consistent. - Continue Imodium and Cholestyramine as well. Lomotil added. - Discussed with Dr. Dueñas (GI) on 11/05/2016 who suggested possibility of microscopic colitis. S/p EGD which revealed gastritis. Follow pathology. - Hold patient's Plavix until cleared by GI. Hypotension Most likely due to volume depletion from diarrhea. - Hypotension resolved. Severe Hypokalemia Secondary to GI losses as above - Given po and IV KCl replacement. - check mg and phos levels. Normal. Near-Syncope with falls Suspect secondary to dehydration and orthostatic hypotension. Orthostatic vitals reviewed, systolic drops from 143 to 99 upon standing. No further near syncope. - would d/c with home health PT. Pt defers at this time. Alcohol Abuse Patient reports drinking 3-4 glasses of wine a day, family suspects much more than this. - Continue thiamine/folate/MV. - CIWA protocol. Full code. SCDs. Discharge Planning Anticipate discharge in morning if diarrhea improves Problem Qualifiers (1) Nausea and vomiting: Qualified Code: R11.2 - Non-intractable vomiting with nausea, unspecified vomiting type (2) GI bleed: Qualified Code: K92.2 - Gastrointestinal hemorrhage, unspecified gastrointestinal hemorrhage type Macario Ray DO Nov 09, 2016 12:13
[2016-11-09] MEDS: LOPERAMIDE HCL 2 MG CAP PO PRN (15:23)
[2016-11-09 16:00] VITALS: BP 109/61; PULSE 61; RESP 20; TEMP 98.4; O2SAT 96
[2016-11-09 20:00] VITALS: BP 96/53; PULSE 63; RESP 20; TEMP 98.4; O2SAT 94
[2016-11-10] VITALS: BP 113/56; PULSE 65; RESP 20; TEMP 97.6; O2SAT 95
[2016-11-10] MEDS: CHOLESTYRAMINE 4 GM PACKET PO SCH ×3 (02:09→11:26)
[2016-11-10 06:00] VITALS: BP 126/62; PULSE 64; RESP 18; TEMP 98; O2SAT 98
[2016-11-10] MEDS: LEVOTHYROXINE SODIUM 75 MCG TAB PO SCH (06:02)
[2016-11-10 07:44] LABS: BICARBONATE 25.9 MEQ/L (21.0-32.0); POTASSIUM 3.5 MEQ/L (3.5-5.1)
[2016-11-10 08:00] VITALS: BP 100/53; PULSE 53; RESP 18; TEMP 97.9; O2SAT 96
[2016-11-10] MEDS: THIAMINE HCL 100 MG TAB PO SCH (08:11)
[2016-11-10] MEDS: DIPHENOXYLATE/ATROPINE 2.5 MG/0.025 MG TAB PO SCH (08:11)
[2016-11-10] MEDS: ATORVASTATIN 40 MG TAB PO SCH (08:11)
[2016-11-10] MEDS: SODIUM CHLORIDE 0.9% FLUSH 10 ML FLUSH IV FLUSH SCH (08:11)
[2016-11-10] MEDS ORDERED: LOPE2CAP92 PO (09:38)
[2016-11-10] MEDS ORDERED: DIPH2.5T14 PO (09:38)
[2016-11-10] MEDS ORDERED: POTA-163 PO (09:38)
[2016-11-10] MEDS ORDERED: CHOL4POW4 PO (09:38)
--- NOTE | 2016-11-10 09:41 | HHI.DCPOC ---
Discharge Care Plan Diagnosis: (1) Diarrhea in adult patient (2) Hypotension (3) GI bleed (4) Hypokalemia Goals to Promote Your Health * To prevent worsening of your condition and complications * To maintain your health at the optimal level Directions to Meet Your Goals Take your medications as prescribed Follow your dietary instruction Follow activity as directed Keep your appointments as scheduled Take your immunizations and boosters as scheduled If your symptoms worsen call your PCP, if no PCP go to Urgent Care Center or Emergency Room Smoking is Dangerous to Your Health. Avoid second hand smoke Call the 24-hour hour crisis hotline for domestic abuse at Macario Ray DO Nov 10, 2016 09:41
--- NOTE | 2016-11-10 09:42 | HHI.FF ---
Face to Face Verification Diagnosis: (1) Diarrhea in adult patient (2) Hypotension (3) GI bleed (4) Hypokalemia Physical Therapy Order: Evaluate and Treat, Improve ambulation, Strength and gait training Home Health Nursing Order: Medical education Signs/symptoms of disease process Medication education-adverse effect Nursing assessment with vital signs I have seen patient Morenita Rodríguez on 11/10/16. My clinical findings support the need for the requested home health care services because: Deconditioned w/ increased weakness High risk of falls I certify that my clinical findings support that this patient is homebound because: Unsteady gait/balance Unsafe to leave home unassisted Macario Ray DO Nov 10, 2016 09:42
--- NOTE | 2016-11-10 09:50 | HHI.DS ---
Discharge Summary Admission Date Nov 03, 2016 at 13:20 Discharge Date: Nov 10, 2016 Admitting Diagnosis GI BLEED, HYPOKALEMIA (1) GI bleed ICD Code: K92.2 Diagnosis: Principal (2) Hypokalemia ICD Code: E87.6 Diagnosis: Principal (3) Orthostatic hypotension ICD Code: I95.1 (4) Diarrhea in adult patient ICD Code: R19.7 Diagnosis: Principal (5) Hypotension ICD Code: I95.9 Procedures EGD/ colonoscopy Brief History - From Admission Written by Alisa Gongora, acting as scribe for Dr. Devries on 11/03/16 at 14:46. This note was transcribed by scribe OVI Jarvis. I, Dr. Petar Devries personally performed the history, physical exam, and medical decision making; and confirmed the accuracy of the information in the transcribed note. Authenticated by Dr. Petar Devries on 11/03/16 at 23:57. 76-year-old female with history of Alzheimer's dementia, Ahn's esophagus, GERD, anemia, PAD s/p stents on Plavix, hypothyroidism, presents with a 3 week history of nausea, vomiting, and diarrhea. The patient is not the best historian secondary to dementia, therefore most of the history supplemented from son and daughter at bedside. Initially the patient states symptoms only going on for 3-4 days, however son at bedside reports symptoms going on for at least 3 weeks. She has had intractable nausea/vomiting and multiple episodes of diarrhea. She has had black watery stools but also reports being on iron replacement. Denies any hematemesis or hematochezia. She reports decreased appetite but has still been able to tolerate some oral intake. She reports 12lbs weight loss over the past month. She has been seeing gastroenterology Dr. Samuels, reportedly scheduled for outpatient CT abdomen soon and EGD/colonoscopy on November 16. This morning the patient's symptoms worsened, her son called Dr. Barroso's office who recommended she come to the ER. Her son also reports 2- 3 episodes recently where the patient has gotten up from bed or a chair, became extremely weak in the legs, and fell forward. One of the falls she hit the front of her face. These episodes always happen immediately after standing abruptly. The son is unsure if she actually loses consciousness or just becomes dizzy and falls. Of note, the family reports the patient's July 22, 2016 here at [place], and she has had some decline ever since, specifically not taking her medications as prescribed and drinking more alcohol than usual. The patient reports drinking 3-4 glasses a day however family suspects much more than this. Otherwise, the patient denies any other medical complaints at this time. CBC/BMP: 11/09/16 0836 11/10/16 0624 Significant Findings Laboratory Tests Test 11/07/16 11/08/16 11/09/16 11/10/16 20:34 13:50 08:36 06:24 Chloride Level 109 MEQ/L 111 MEQ/L 112 MEQ/L 109 MEQ/L (98-107) (98-107) (98-107) (98-107) Blood Urea Nitrogen 4 MG/DL (7-18) Calcium Level 7.8 MG/DL 8.0 MG/DL 8.1 MG/DL 8.4 MG/DL (8.5-10.1) (8.5-10.1) (8.5-10.1) (8.5-10.1) Red Blood Count 3.19 MIL/MM3 3.28 MIL/MM3 (4.00-5.30) (4.00-5.30) Hemoglobin 10.5 GM/DL 10.6 GM/DL (11.6-15.3) (11.6-15.3) Hematocrit 31.5 % 32.2 % (35.0-46.0) (35.0-46.0) Red Cell Distribution Width 18.1 % 17.9 % (11.6-17.2) (11.6-17.2) Potassium Level 3.4 MEQ/L 3.2 MEQ/L (3.5-5.1) (3.5-5.1) Estimat Glomerular Filtration 81 ML/MIN (>89) 82 ML/MIN (>89) Rate Imaging Last Impressions Chest X-Ray 11/03/16 0000 Signed Impressions: Service Date/Time: Thursday, November 03, 2016 12:04 - CONCLUSION: No acute cardiopulmonary abnormality is identified. Den Jean MD Abdomen/Pelvis CT 11/03/16 0000 Signed Impressions: Service Date/Time: Thursday, November 03, 2016 15:33 - CONCLUSION: 1. Mild ileus. No acute findings. Gonsalo Fuller MD PE at Discharge GENERAL: Resting comfortably. SKIN: Warm and dry. HEAD: Normocephalic. EYES: No scleral icterus. No injection or drainage. NECK: Supple, trachea midline. No JVD or lymphadenopathy. CARDIOVASCULAR: Regular rate and rhythm without murmurs, gallops, or rubs. RESPIRATORY: Breath sounds equal bilaterally. No accessory muscle use. GASTROINTESTINAL: Abdomen soft, nontender, nondistended. MUSCULOSKELETAL: No cyanosis, or edema. BACK: Nontender without obvious deformity. No CVA tenderness. NEURO: No gross deficits. PSYCH: Mood and affect appropriate. Pt update on day of discharge The patient was feeling well and wanted to go home. Her family was at the bedside. The patient says her diarrhea was better. She had no acute complaints. Discussed with GI. Hospital Course Intractable diarrhea/ GIB Hemoccult positive in the ED. Recently seen gastroenterology and was scheduled for outpatient CT abdomen and EGD/colonoscopy. Abdominal/pelvis CT showed no acute findings. Stool cultures were negative. C. Diff was negative. Diarrhea improving but still consistent. S/p EGD and colonoscopy which revealed gastritis and diverticulosis. Biopsies were taken and the pathology is currently pending. She received Imodium and cholestyramine. Lomotil BID was added. Her Plavix was initially held but was resumed upon discharge after discussing with GI. The pt will follow up with GI as an outpt. She will continue Imodium, Lomotil and cholestyramine. Hypotension Resolved with IVFs and improvement in her diarrhea. Severe hypokalemia She received po and IV KCl replacement. She will be discharged on KCl supplementation. Near syncope with falls Orthostatic vitals reviewed, systolic dropped from 143 to 99 upon standing. No further near syncope. PT evaluated the patient. Will d/c with home health care and PT. Pt Condition on Discharge: Good Discharge Disposition: Disch w/ Home Health Serv Discharge Time: > 30 minutes Discharge Instructions DIET: Follow Instructions for: Heart Healthy Diet Activities you can perform: Weight Bearing as Johnny Follow up Referrals: Gastroenterology - 1 Week with Tj Samuels MD PCP Follow-up - 1 Week New Orders: BASIC METABOLIC PROF - 3-5 Days New Medications: Potassium Chloride ER (Potassium Chloride ER) 20 Meq Tab 20 MEQ PO DAILY Electrolyte Replacement #14 Ref 0 TAB Cholestyramine (Cholestyramine) 4 Gm/Pkt Powd 4 GM PO Q6HR Diarrhea Days 14 PACKET Diphenoxylate-Atropine (Diphenoxylate-Atropine) 2.5-0.025 Mg Tab 1 TAB PO BID Diarrhea Days 14 TAB Loperamide HCl (Hm Loperamide HCl) 2 Mg Cap 2 MG PO Q6HR PRN DIARRHEA #30 CAP Continued Medications: Atorvastatin (Lipitor) 40 Mg Tab 40 MG PO DAILY Cholesterol Management #30 Ref 0 TAB Clopidogrel (Plavix) 75 Mg Tab 75 MG PO DAILY Blood Clot Prevention #30 Ref 0 TAB Levothyroxine (Levothyroxine) 75 Mcg Tab 75 MCG PO DAILY Thyroid #30 Ref 0 TAB Trazodone (Trazodone) 50 Mg Tab 75 MG PO HS Control Depression #30 Ref 0 TAB Macario Ray DO Nov 10, 2016 09:50
[2016-11-10] MEDS ORDERED: POTASSIUM CHLORIDE 25 MEQ EFFERVESCENT TAB PO ONE (10:00)
[2016-11-10 12:00] VITALS: BP 97/46; PULSE 60; RESP 18; TEMP 98.3; O2SAT 97
== END 2016-11-10 13:49 | disposition home health service (06) | DRG 392 ==
LOC: NEPE 10:45 → NEDA 13:20 → N04B 16:10
PROVIDERS: ADMIT Hospitalist; ATTEND Hospitalist
PROC: 0DBE8ZX Excision of Large Intestine, Via Natural or Artificial Opening Endoscopic, Diagnostic (ICD-10-PCS; 2016-11-06)
PROC: 0DB98ZX Excision of Duodenum, Via Natural or Artificial Opening Endoscopic, Diagnostic (ICD-10-PCS; principal; 2016-11-06 16:13)
PROC: 0DB68ZX Excision of Stomach, Via Natural or Artificial Opening Endoscopic, Diagnostic (ICD-10-PCS; 2016-11-06 16:13)
DX: K52.9 Noninfective gastroenteritis and colitis, unspecified (principal); N17.9 Acute kidney failure, unspecified; E87.0 Hyperosmolality and hypernatremia; K92.2 Gastrointestinal hemorrhage, unspecified; G30.9 Alzheimer's disease, unspecified; E83.51 Hypocalcemia; E86.9 Volume depletion, unspecified; F02.80 Dementia in other diseases classified elsewhere, unspecified severity, without behavioral disturbance, psychotic disturbance, mood disturbance, and anxiety; Z79.02 Long term (current) use of antithrombotics/antiplatelets; R19.7 Diarrhea, unspecified; D50.9 Iron deficiency anemia, unspecified; E03.9 Hypothyroidism, unspecified; E87.6 Hypokalemia; Z87.11 Personal history of peptic ulcer disease; Z86.010 Personal history of colon polyps; R11.2 Nausea with vomiting, unspecified; K21.9 Gastro-esophageal reflux disease without esophagitis; Z87.891 Personal history of nicotine dependence; E78.00 Pure hypercholesterolemia, unspecified; K44.9 Diaphragmatic hernia without obstruction or gangrene; K29.70 Gastritis, unspecified, without bleeding; K57.30 Diverticulosis of large intestine without perforation or abscess without bleeding; I95.1 Orthostatic hypotension; I73.9 Peripheral vascular disease, unspecified; Z91.81 History of falling
CPT/HCPCS: 71010; 74177; 76937; 80048; 80053; 81001; 83605; 83690; 83735; 84100; 84132; 84145; 85025; 85027; 85610; 85730; 86850; 86900; 86901; 87493; 87506; 88305; 88312; 93005; 96374; 96375; C9113; J0610; J3480; J7030; Q9967

== ENCOUNTER 2017-02-15 14:13 | Inpatient (IN) | payer OTHER, MEDICARE ==
[2017-02-15] VITALS (10 sets, daily range): BP systolic 88–163; BP diastolic 50–70; PULSE 64–71; RESP 15–20; TEMP 97.8–98.5; O2SAT 94–98
[~2017-02-15] VITALS: Ht 160 cm; Wt 61.9 kg
[~2017-02-15 14:13] MED LIST changes: +CHOL4POW4 PO; +DIPH2.5T14 PO; -LEVO.05 PO; +LEVO75TA3 PO; +LIPI40TA PO; +LOPE2CAP2 PO; -LORTA5 PO; -LOVA20TA PO; -MOTR200T PO; -OMEP20TA39 PO; +PLAV75TA29 PO; +POTA-163 PO; +TRAZ50TA12 PO
--- NOTE | 2017-02-15 15:17 | PD ---
HPI Chief Complaint: Abnormal Results Time Seen by Provider: 14:56 Travel History International Travel<30 days: No Contact w/Intl Traveler<30days: No Traveled to known affect area: No History of Present Illness HPI 76-year-old female was referred to the emergency room for evaluation of hypokalemia. Patient has history of recurrent hypokalemia secondary to chronic diarrhea. Patient also has history of alcohol consumptions. Patient has been noncompliant with her medication at home including cholestyramine, loperamide, potassium. Patient denies any headache. Patient denies any chest pain or shortness of breath. Patient denies abdominal pain. Patient had blood tests done 3 days ago and patient was informed by her physician today to go the emergency room for evaluation of potassium of 2.6. Patient also has history GI bleed, hypokalemia, orthostatic hypotension, chronic diarrhea, Alzheimer's dementia, Ahn's esophagus, GERD, anemia, CAD status post stent placement on Plavix, hypothyroidism. PFSH Past Medical History Hx Anticoagulant Therapy: Yes Alzheimer's Disease: Yes Cancer: No Cardiovascular Problems: No Diabetes: No Diminished Hearing: No Endocrine: Yes Gastrointestinal Disorders: Yes (Barretts esophagus) GERD: Yes Genitourinary: No Hepatitis: No Hiatal Hernia: No Hypertension: No Immune Disorder: No Musculoskeletal: Yes (neck surgery with titanium plates arthritis) Neurologic: Yes Psychiatric: No Reproductive: No Respiratory: No Immunizations Current: Yes Thyroid Disease: Yes Ulcer: Yes Influenza Vaccination: Yes Menopausal: Yes Past Surgical History Abdominal Surgery: Yes (right inguinal hernia repair) Body Medical Devices: hardware in the neck, RIGHT ARM SCREWS Cardiac Surgery: Yes (STENTS) Joint Replacement: No Pacemaker: No Other Surgery: Yes Social History Alcohol Use: Yes (3 glasses of wine daily) Tobacco Use: No (QUIT APPROX 20 YEARS ) Substance Use: No Allergies-Medications (Allergen,Severity, Reaction): Coded Allergies: No Known Allergies (Unverified Adverse Reaction, Unknown, 02/15/17) Reported Meds & Prescriptions Reported Meds & Active Scripts Active Potassium Chloride ER (Potassium Chloride) 20 Meq Tab 20 Meq PO DAILY Hm Loperamide HCl (Loperamide HCl) 2 Mg Cap 2 Mg PO Q6HR PRN Cholestyramine 4 Gm/Pkt Powd 4 Gm PO Q6HR 14 Days Reported Levothyroxine (Levothyroxine Sodium) 75 Mcg Tab 75 Mcg PO DAILY Lipitor (Atorvastatin Calcium) 40 Mg Tab 40 Mg PO DAILY Review of Systems General / Constitutional: No: Fever Eyes: No: Visual changes HENT: No: Headaches Cardiovascular: No: Chest Pain or Discomfort Respiratory: No: Shortness of Breath Gastrointestinal: No: Abdominal Pain Genitourinary: No: Dysuria Musculoskeletal: No: Pain Skin: No Rash Neurologic: No: Weakness Psychiatric: No: Depression Endocrine: No: Polydipsia Hematologic/Lymphatic: No: Easy Bruising Physical Exam Narrative GENERAL: Well-nourished, well-developed patient. SKIN: Focused skin assessment warm/dry. HEAD: Normocephalic. EYES: No scleral icterus. No injection or drainage. NECK: Supple, trachea midline. No JVD or lymphadenopathy. CARDIOVASCULAR: Regular rate and rhythm without murmurs, gallops, or rubs. RESPIRATORY: Breath sounds equal bilaterally. No accessory muscle use. GASTROINTESTINAL: Abdomen soft, non-tender, nondistended. Rectal exam Hemoccult trace positive. MUSCULOSKELETAL: No cyanosis, or edema. BACK: Nontender without obvious deformity. No CVA tenderness. Neurologic exam normal. Data Data Last Documented VS Vital Signs Date Time Temp Pulse Resp B/P (MAP) Pulse Ox O2 Delivery O2 Flow Rate FiO2 02/15/17 14:40 123/56 (78) 02/15/17 14:15 97.8 66 15 97 Orders Orders Electrocardiogram (02/15/17 15:07) Complete Blood Count With Diff (02/15/17 15:07) Basic Metabolic Panel (Bmp) (02/15/17 15:07) Urinalysis - C+S If Indicated (02/15/17 15:07) Magnesium (Mg) (02/15/17 15:07) Phosphorus (Po4) (02/15/17 15:07) Iv Access Insert/Monitor (02/15/17 15:07) Ecg Monitoring (02/15/17 15:07) Oximetry (02/15/17 15:07) Potassium Chloride (Kcl) (02/15/17 16:15) Potassium Chlor 20 Meq Premix (Kcl 20 Me (02/15/17 16:15) Sodium Chlor 0.9% 1000 Ml Inj (Ns 1000 M (02/15/17 16:30) Famotidine Inj (Pepcid Inj) (02/15/17 16:30) Type And Screen (02/15/17 16:30) Admit To Inpatient (02/15/17 ) Vital Signs (Adult) JONN.Q4H (02/15/17 16:45) Activity Oob With Assistance (02/15/17 16:45) Information Systems Auditor / Telemetry JONN.Q8H (02/15/17 16:45) Diet Clear Liquid (02/15/17 Dinner) Inpatient Certification (02/15/17 ) Admit Order (Ed Use Only) (02/15/17 16:47) Labs Laboratory Tests Test 02/15/17 15:00 White Blood Count 8.4 TH/MM3 Red Blood Count 2.86 MIL/MM3 Hemoglobin 8.0 GM/DL Hematocrit 24.8 % Mean Corpuscular Volume 86.9 FL Mean Corpuscular Hemoglobin 28.0 PG Mean Corpuscular Hemoglobin Concent 32.3 % Red Cell Distribution Width 15.2 % Platelet Count 338 TH/MM3 Mean Platelet Volume 8.9 FL Neutrophils (%) (Auto) 69.2 % Lymphocytes (%) (Auto) 16.5 % Monocytes (%) (Auto) 11.0 % Eosinophils (%) (Auto) 2.5 % Basophils (%) (Auto) 0.8 % Neutrophils # (Auto) 5.8 TH/MM3 Lymphocytes # (Auto) 1.4 TH/MM3 Monocytes # (Auto) 0.9 TH/MM3 Eosinophils # (Auto) 0.2 TH/MM3 Basophils # (Auto) 0.1 TH/MM3 CBC Comment DIFF FINAL Differential Comment Urine Color YELLOW Urine Turbidity CLEAR Urine pH 6.0 Urine Specific [place] 1.017 Urine Protein NEG mg/dL Urine Glucose (UA) NEG mg/dL Urine Ketones TRACE mg/dL Urine Occult Blood NEG Urine Nitrite NEG Urine Bilirubin NEG Urine Leukocyte Esterase NEG Urine RBC 0-3 /hpf Urine WBC 3-5 /hpf Urine Squamous Epithelial Cells 6-8 /hpf Urine Bacteria RARE /hpf Microscopic Urinalysis Comment CULT NOT INDICATED Blood Urea Nitrogen 11 MG/DL Creatinine 0.85 MG/DL Random Glucose 95 MG/DL Calcium Level 8.1 MG/DL Phosphorus Level 2.5 MG/DL Magnesium Level 1.9 MG/DL Sodium Level 144 MEQ/L Potassium Level 2.5 MEQ/L Chloride Level 107 MEQ/L Carbon Dioxide Level 26.5 MEQ/L Anion Gap 11 MEQ/L Estimat Glomerular Filtration Rate 65 ML/MIN MDM Medical Decision Making Medical Screen Exam Complete: Yes Emergency Medical Condition: Yes Interpretation(s) 1558 PM. CBC with hemoglobin 8.0 hematocrit 24.8. WBC 8.4. Normal differential. 1608 p.m. Potassium 2.5. Phosphorus 2.5. Magnesium 1.9. UA is negative. Differential Diagnosis Differential diagnosis including hypokalemia, chronic diarrhea, electrolyte imbalance. Narrative Course 76-year-old female with recurrent hypokalemia. History of chronic diarrhea. Blood tests drawn 3 days ago show potassium at 2.6. Potassium today 2.5. KCl 40 mEq by mouth given. KCl 20 mEq IV given. Pepcid 20 mg IV. HemaPrompt Point of Care Internal Pos. & Neg. Controls: Passed Fecal Specimen Occult Blood: Positive Diagnosis Primary Impression: Hypokalemia Additional Impressions: Anemia Qualified Codes: D64.9 - Anemia, unspecified GI bleed Qualified Codes: K92.2 - Gastrointestinal hemorrhage, unspecified Admitting Information Admitting Physician Requests: Admit Kaleb Ragsdale MD Feb 15, 2017 15:16
[2017-02-15 15:24] LABS: BLOOD, URINE NEG (NEG); GLUCOSE,URINE NEG (NEG); KETONE, URINE TRACE mg/dL (NEG); NITRITE,URINE NEG (NEG)
[2017-02-15 15:27] LABS: AUTOMATED NEUTROPHIL # 5.8 TH/MM3 (1.8-7.7); BASOPHIL # 0.1 TH/MM3 (0-0.2); BASOPHIL % 0.8 % (0.0-2.0); EOSINOPHIL # 0.2 TH/MM3 (0-0.4); EOSINOPHIL % 2.5 % (0.0-4.0); HEMATOCRIT 24.8 % (35.0-46.0); HEMO FLAGS DIFF FINAL; LYMPH % 16.5 % (9.0-44.0); LYMPHOCYTE # 1.4 TH/MM3 (1.0-4.8); MEAN CELL VOLUME 86.9 FL (80.0-100.0); MEAN CORPUSCULAR HGB CONC 32.3 % (32.0-36.0); NEUT % 69.2 % (16.0-70.0); PLATELET COUNT 338 TH/MM3 (150-450); RED BLOOD COUNT 2.86 MIL/MM3 (4.00-5.30); RED CELL DISTRIBUTION WIDTH 15.2 % (11.6-17.2); WHITE BLOOD COUNT 8.4 TH/MM3 (4.0-11.0)
[2017-02-15 15:43] LABS: RBC, URINE 0-3 /hpf (0-3); URINE COLOR YELLOW (YELLW/STRAW)
[2017-02-15 15:44] LABS: BACTERIA, URINE RARE /hpf; COMMENT (UR) CULT NOT INDICATED; CULTURE IF INDICATED CULT NOT INDICATED
[2017-02-15 16:03] LABS: BICARBONATE 26.5 MEQ/L (21.0-32.0); MAGNESIUM 1.9 MG/DL (1.5-2.5)
[2017-02-15 16:05] LABS: POTASSIUM 2.5 MEQ/L (3.5-5.1)
[2017-02-15] MEDS ORDERED: POTASSIUM CHLOR 20 MEQ PREMIX 100 ML IV ONE (16:15)
[2017-02-15] MEDS ORDERED: POTASSIUM CHLORIDE 20 MEQ CONTROLLED RELEASE TAB PO ONE (16:15)
[2017-02-15] MEDS ORDERED: FAMOTIDINE 20 MG/2 ML VIAL IV PUSH ONE (16:30)
[2017-02-15] MEDS: SODIUM CHLOR 0.9% 1000 ML INJ 1,000 ML IV SCH (16:52)
[2017-02-15] MEDS ORDERED: LOPERAMIDE HCL 2 MG CAP PO PRN (18:30)
--- NOTE | 2017-02-15 19:01 | HHI.HP ---
HPI Service [facility] Primary Care Physician Luis Barroso MD Admission Diagnosis hypokalemia. Anemia. GI bleed. Diagnoses: Chief Complaint: hypokalemia Travel History International Travel<30 Days: No Contact w/Intl Traveler <30 Da: No Traveled to Known Affected Are: No History of Present Illness 76-year-old white female being admitted for severe hypokalemia. Patient was in her usual state of health except until she began feeling more lightheaded sometime earlier this week. States that her orthostatic lightheadedness was just simply more profound this week. Denies any bloody or tarry stools. She was prompted to come to the emergency room after receiving communication from her doctor's office about a low potassium noted in the blood work. Patient denies any nausea vomiting or any changes in her bowel habits without matter - but she does mention noticing some bright red blood very occasionally on wiping within the last week or so, no blood in the toilet. Reports that her bowel habits are once a day. The patient's daughter states that she has had a new problem of chronic diarrhea that began sometime earlier this year and has to take cholestyramine packets to help minimize this as well as Imodium. The patient herself says her stools have no longer been runny since then. ED attending conveyed to me that he performed a digital rectal exam which resulted in a positive Hemoccult. The daughter does mention that the patient did have a colonoscopy which showed "colitis" within the last couple months. The daughter also mentions that the patient has been hospitalized 5 times for hypokalemia within this year alone. She states that one hospitalization lasted about 7 days to treat this problem. Review of Systems Except as stated in HPI: all other systems reviewed are Neg Past Family Social History Past Medical History Buttocks esophagus, arthritis, colitis, chronic diarrhea, recurrent hypokalemia , acid reflux, Alzheimer's disease, coronary artery disease Past Surgical History Right inguinal hernia repair, cardiac stents, hardware neck, right arm screws Allergies: Coded Allergies: No Known Allergies (Unverified Adverse Reaction, Unknown, 02/15/17) Family History No family history of colorectal cancer, ulcerative colitis, Crohn's disease Social History Quit smoking 20 years ago, had been smoking since her teens into her 50s Drinks wine daily from 1-3 glasses Physical Exam Vital Signs Vital Signs Date Time Temp Pulse Resp B/P (MAP) Pulse Ox O2 Delivery O2 Flow Rate FiO2 02/15/17 18:04 02/15/17 17:35 66 18 96 02/15/17 16:57 123/63 (83) 02/15/17 15:00 98 02/15/17 14:40 123/56 (78) 02/15/17 14:15 97.8 66 15 88/50 (63) 97 Physical Exam VS: Afebrile GENERAL: No acute distress, lying in bed, awake, alert, pale, elderly SKIN: Warm and dry. EYES: No scleral icterus. No injection or drainage. ENT: No nasal bleeding or discharge. Mucous membranes pink and moist. Dentures in place. CARDIOVASCULAR: Regular rate and rhythm. no murmurs RESPIRATORY: No accessory muscle use. Clear to auscultation. Breath sounds equal bilaterally. GASTROINTESTINAL: Abdomen soft, non-tender, nondistended. Hepatic and splenic margins not palpable. Extremities: No clubbing, cyanosis, or edema. No obvious deformities. MUSCULOSKELETAL: Extremities without clubbing, cyanosis, or edema. No obvious deformities. grossly intact ROM with 5/5 strength in upper and lower extremities proximally NEUROLOGICAL: Awake and alert. No obvious cranial nerve deficits. No facial droop nor slurred speech noted. PSYCHIATRIC: Appropriate mood and affect; insight and judgment normal. Laboratory Laboratory Tests Test 02/15/17 15:00 White Blood Count 8.4 Red Blood Count 2.86 Hemoglobin 8.0 Hematocrit 24.8 Mean Corpuscular Volume 86.9 Mean Corpuscular Hemoglobin 28.0 Mean Corpuscular Hemoglobin Concent 32.3 Red Cell Distribution Width 15.2 Platelet Count 338 Mean Platelet Volume 8.9 Neutrophils (%) (Auto) 69.2 Lymphocytes (%) (Auto) 16.5 Monocytes (%) (Auto) 11.0 Eosinophils (%) (Auto) 2.5 Basophils (%) (Auto) 0.8 Neutrophils # (Auto) 5.8 Lymphocytes # (Auto) 1.4 Monocytes # (Auto) 0.9 Eosinophils # (Auto) 0.2 Basophils # (Auto) 0.1 CBC Comment DIFF FINAL Differential Comment Urine Color YELLOW Urine Turbidity CLEAR Urine pH 6.0 Urine Specific [place] 1.017 Urine Protein NEG Urine Glucose (UA) NEG Urine Ketones TRACE Urine Occult Blood NEG Urine Nitrite NEG Urine Bilirubin NEG Urine Leukocyte Esterase NEG Urine RBC 0-3 Urine WBC 3-5 Urine Squamous Epithelial Cells 6-8 Urine Bacteria RARE Microscopic Urinalysis Comment CULT NOT INDICATED Blood Urea Nitrogen 11 Creatinine 0.85 Random Glucose 95 Calcium Level 8.1 Phosphorus Level 2.5 Magnesium Level 1.9 Sodium Level 144 Potassium Level 2.5 Chloride Level 107 Carbon Dioxide Level 26.5 Anion Gap 11 Estimat Glomerular Filtration Rate 65 Result Diagram: 02/15/17 1500 02/15/17 1500 Caprini VTE Risk Assessment Caprini VTE Risk Assessment: Mod/High Risk (score >= 2) Caprini Risk Assessment Model Point Value = 1 Point Value = 2 Point Value = 3 Point Value = 5 Age 41-60 Minor surgery BMI > 25 kg/m2 Swollen legs Varicose veins or History of unexplained or recurrent spontaneous Oral contraceptives or hormone replacement Sepsis (< 1 month) Serious lung disease, including pneumonia (< 1 month) Abnormal pulmonary function Acute myocardial infarction Congestive heart failure (< 1 month) History of inflammatory bowel disease Medical patient at bed rest Age 61-74 Arthroscopic surgery Major open surgery (> 45 min) Laparoscopic surgery (> 45 min) Malignancy Confined to bed (> 72 hours) Immobilizing plaster cast Central venous access Age >= 75 History of VTE Family history of VTE Factor V Leiden Prothrombin [id number] Lupus anticoagulant Anticardiolipin antibodies Elevated serum homocysteine Heparin-induced thrombocytopenia Other congenital or acquired thrombophilia Stroke (< 1 month) Elective arthroplasty Hip, pelvis, or leg fracture Acute spinal cord injury (< 1 month) Prophylaxis Regimen Total Risk Factor Score Risk Level Prophylaxis Regimen 0-1 Low Early ambulation 2 Moderate Order ONE of the following: *Sequential Compression Device (SCD) *Heparin 5000 units SQ BID 3-4 Higher Order ONE of the following medications: *Heparin 5000 units SQ TID *Enoxaparin/Lovenox 40 mg SQ daily (WT < 150 kg, CrCl > 30 mL/min) *Enoxaparin/Lovenox 30 mg SQ daily (WT < 150 kg, CrCl > 10-29 mL/min) *Enoxaparin/Lovenox 30 mg SQ BID (WT < 150 kg, CrCl > 30 mL/min) AND/OR *Sequential Compression Device (SCD) 5 or more Highest Order ONE of the following medications: *Heparin 5000 units SQ TID (Preferred with Epidurals) *Enoxaparin/Lovenox 40 mg SQ daily (WT < 150 kg, CrCl > 30 mL/min) *Enoxaparin/Lovenox 30 mg SQ daily (WT < 150 kg, CrCl > 10-29 mL/min) *Enoxaparin/Lovenox 30 mg SQ BID (WT < 150 kg, CrCl > 30 mL/min) AND *Sequential Compression Device (SCD) Assessment and Plan Assessment and Plan Severe hypokalemia - replacing with IV and PO - possibly from GI losses given diarrhea history - telemetry - Mg and Ph wnl - starting spironolactone - BMP in AM - EKG ordered, still pending, looking to independently review strip possible GI bleed - given IZABEL, unable to decipher true Hemoccult but historically the suspicion for GI Bleed - consulting GI - clear liquid diet for now, NPO after midnight in case GI wants to proceed with scope - Continue loperamide when necessary home regimen for loose stools - Continue home cholestyramine - given famotidine in ER, but unlikely upper gi so will hold off on acid reducers unless bleeding becomes brisk or melena occurs continue home synthroid Physician Certification 2 Midnight Certification Type: Admission for Inpatient Services Order for Inpatient Services The services are ordered in accordance with Medicare regulations or non- Medicare payer requirements, as applicable. In the case of services not specified as inpatient-only, they are appropriately provided as inpatient services in accordance with the 2-midnight benchmark. Estimated LOS (days): 2 2 days is the estimated time the patient will need to remain in the hospital, assuming treatment plan goals are met and no additional complications. Post-Hospital Plan: Home Connor Ochoa MD Feb 15, 2017 19:01
[2017-02-15] MEDS: CHOLESTYRAMINE 4 GM PACKET PO SCH (19:47)
[2017-02-15] MEDS: POTASSIUM CHLOR 20 MEQ PREMIX 100 ML IV SCH (21:55)
[2017-02-15] MEDS ORDERED: ACETAMINOPHEN 325 MG TAB PO PRN (23:15)
[2017-02-16] VITALS: BP 124/57; PULSE 62; RESP 20; TEMP 97.8; O2SAT 95
[2017-02-16 04:00] VITALS: BP 139/65; PULSE 69; RESP 20; TEMP 98.3; O2SAT 95
[2017-02-16] MEDS ORDERED: LEVOTHYROXINE SODIUM 75 MCG TAB PO SCH (06:00)
[2017-02-16] MEDS: CHOLESTYRAMINE 4 GM PACKET PO SCH ×3 (06:07→12:40)
[2017-02-16] MEDS: POTASSIUM CHLOR 20 MEQ PREMIX 100 ML IV SCH (06:28)
[2017-02-16] MEDS ORDERED: POTASSIUM CHLOR 20 MEQ PREMIX 100 ML IV SCH ×2 (06:30→10:00)
[2017-02-16 06:45] LABS: AUTOMATED NEUTROPHIL # 5.6 TH/MM3 (1.8-7.7); BASOPHIL # 0.1 TH/MM3 (0-0.2); EOSINOPHIL # 0.2 TH/MM3 (0-0.4); HEMATOCRIT 25.5 % (35.0-46.0); HEMO FLAGS AUTO DIFF; LYMPH % 14.4 % (9.0-44.0); LYMPHOCYTE # 1.1 TH/MM3 (1.0-4.8); MEAN CELL VOLUME 87.7 FL (80.0-100.0); MEAN CORPUSCULAR HEMOGLOBIN 27.9 PG (27.0-34.0); MEAN CORPUSCULAR HGB CONC 31.8 % (32.0-36.0); MONO % 10.5 % (0.0-8.0); NEUT % 71.1 % (16.0-70.0); PLATELET COUNT 234 TH/MM3 (150-450); RED BLOOD COUNT 2.91 MIL/MM3 (4.00-5.30); RED CELL DISTRIBUTION WIDTH 15.8 % (11.6-17.2); WHITE BLOOD COUNT 7.8 TH/MM3 (4.0-11.0)
[2017-02-16] MEDS: SODIUM CHLOR 0.9% 1000 ML INJ 1,000 ML IV SCH (06:48)
[2017-02-16 07:00] VITALS: PULSE 60
[2017-02-16 07:17] LABS: BANDS 2 % (0-6); NEUTROPHIL # MANUAL DIFF 5.8 TH/MM3 (1.8-7.7); POLYS (SEG NEUTROPHILS) 72 % (16-70); WBC DIFF SAMPLE 100
[2017-02-16 07:18] LABS: SCAN/DIFF FINAL DIFF MANUAL
[2017-02-16 07:36] LABS: BICARBONATE 23.2 MEQ/L (21.0-32.0); POTASSIUM 2.7 MEQ/L (3.5-5.1)
[2017-02-16 08:00] VITALS: BP 124/73; PULSE 71; RESP 16; TEMP 96.6; O2SAT 96
[2017-02-16] MEDS ORDERED: POTASSIUM CHLORIDE 20 MEQ CONTROLLED RELEASE TAB PO ONE ×2 (08:15→10:15)
[2017-02-16] MEDS ORDERED: ATORVASTATIN 40 MG TAB PO SCH (09:00)
[2017-02-16] MEDS ORDERED: POTASSIUM CHLORIDE 20 MEQ CONTROLLED RELEASE TAB PO SCH (09:00)
[2017-02-16 10:21] LABS: MAGNESIUM 1.9 MG/DL (1.5-2.5)
--- NOTE | 2017-02-16 10:25 | MB ---
cc: DARON SCHAEFER MD, JOO DATE OF CONSULTATION 02/16/[address] Connor Ochoa REASON FOR CONSULTATION Diarrhea and heme-positive stool. HISTORY Morenita's a very pleasant 76-year-old female known to the undersigned with a history of multiple colon polyps, peptic ulcer disease and recent diarrhea. The patient has had approximately five colonoscopies in the last two years including one for EMR of several large polyps which were adenomas. The patient had an EGD last spring by Dr. Philippe that revealed some small 5-mm gastric ulcers. However, follow-up endoscopy in November of this year by Dr. Blanca Dueñas showed the ulcers had healed. Biopsies have been negative for H. pylori. Last colonoscopy also done in November of this year with random biopsies showing a nonspecific colitis. The patient was given mesalamine in the form of Apriso but for some reason it was stopped. The patient's son and daughter are at the bedside and state that the patient does drink alcohol on a regular basis and in their opinion she drinks too much. She drinks at least three glasses of wine per day and sometimes also has cocktails. She denies any abdominal pain, nausea or regular heartburn. She takes omeprazole daily. She states she usually takes Tylenol if she needs something for pain and very rarely takes ibuprofen. She does have a history of iron deficiency anemia and has undergone extensive workup in the last two years including multiple EGDs and colonoscopies and also a pill camera study. The patient denies any black stools but I discussed her case yesterday with the ER physician, Dr. Ragsdale, and she had brown trace heme-positive stool on rectal exam. Her hemoglobin is 8 grams. She was taking oral iron but they stopped it because it was turning her stools dark and they wanted to be able to monitor for bleeding. She does have five to six loose to watery stools a day. She denies greasy or oily stools. She denies malodorous stools. SOCIAL HISTORY The patient had six children. She quit smoking 20 years ago. She does drink alcohol on a regular basis as described above. MEDICATIONS Her medications from her November visit were - 1. Gabapentin. 2. Lovastatin. 3. Levothyroxine. 4. Tylenol p.r.n. 5. Zoloft. 6. Lomotil which she has started taking again. 7. Trazodone. 8. Omeprazole. ALLERGIES She has no known drug allergies. FAMILY HISTORY She had a brother with heart disease. Father at age 75 of a heart attack. Mother had a stroke at 65. One sister had lung cancer. PAST SURGICAL HISTORY 1. Remarkable for prior inguinal hernia repair. 2. Coronary stents. 3. Neck surgery. PAST MEDICAL HISTORY Medical history is remarkable for - 1. Hyperlipidemia. 2. History of thyroid disease. 3. History of peptic ulcer disease. 4. History of colon polyps. 5. History of iron deficiency anemia. 6. Family states she was diagnosed with early Alzheimer's disease about a year ago. REVIEW OF SYSTEMS No cardiopulmonary complaints. No significant GI complaints other than the diarrhea. PHYSICAL EXAMINATION GENERAL: Physical exam reveals a well-developed female in no acute distress. VITAL SIGNS: Her blood pressure is 124/73, pulse 71 and irregular, respirations 60 and nonlabored, temperature is 96.6 orally. HEENT: Sclerae anicteric. LUNGS: Clear to auscultation. HEART SOUNDS: Regular. ABDOMEN: Soft and nontender, no distension. Bowel sounds are normal. No bruits. No organomegaly and no detectable ascites. RECTAL: Deferred. EXTREMITIES: No cyanosis, clubbing or edema. SKIN: Warm and dry. NEUROLOGIC: She was alert and oriented with a pleasant affect. LABORATORY FINDINGS On admission her potassium was 2.5, came up to 3.0 and this morning is back to 2.7. Her creatinine is 0.61. Her hemoglobin is 8.1 with an MCV of 87, platelet count of 234,000, white count of 7.8. Urinalysis was unremarkable except for trace ketones. IMAGING STUDIES No imaging studies available. IMPRESSION 1. Chronic diarrhea. Etiology could be due to her daily alcohol use but also there has been evidence of microscopic colitis. 2. Anemia. Patient with a past history of iron deficiency anemia and occult GI bleeding, has undergone extensive evaluation several times over the past 2 years. 3. Hypokalemia. PLAN 1. I have suggested a trial of budesonide orally for the colitis. It does not appear that it is on the hospital formulary, can prescribe after discharge. 2. I will also check a C-diff toxin although she denies taking any antibiotics in the last several months. 3. I advised her to stop drinking alcohol as this could be causing her diarrhea. 4. We will also check her iron saturation she likely will need to be put back on oral iron supplements or offered parenteral iron infusion. 5. Would continue the omeprazole because of her ulcer history and also GERD history. 6. The patient could be discharged from a GI standpoint. Her hypokalemia is being addressed by the medical team. 7. We will have her follow up in the office in the near future. Thank you for this consult. MD QASIM Roy/EVENS /9:52 AM /10:11 AM [email or web address]
[2017-02-16 12:00] VITALS: BP 108/54; PULSE 69; RESP 20; TEMP 96.7; O2SAT 99
[2017-02-16 12:18] LABS: TRANSFERRIN IRON PROFILE 252 MG/DL (200-360)
--- NOTE | 2017-02-16 14:25 | EKG ---
Date Performed: 02/15/2017 Time Performed: 15:22:54 PTAGE: 76 years EKG: Sinus rhythm COMPLETE RIGHT BUNDLE BRANCH BLOCK ABNORMAL ECG PREVIOUS TRACING : 11/03/2016 11.25 Compared to prior tracing no significant change DOCTOR: Jose Núñez Interpretating Date/Time 02/16/2017 14:19:02
[2017-02-16 14:41] LABS: BICARBONATE 24.4 MEQ/L (21.0-32.0)
--- NOTE | 2017-02-16 14:47 | HHI.PR ---
Subjective Remarks Patient feels well. No further rectal bleeding. She would like to go home. She did not tolerate IV potassium replacement so she was given oral potassium. Repeat BMP is pending. She does have some cramping in her fingers. Objective Vitals Vital Signs Date Time Temp Pulse Resp B/P (MAP) Pulse Ox O2 Delivery O2 Flow Rate FiO2 02/16/17 12:00 96.7 69 20 108/54 (72) 99 02/16/17 08:00 96.6 71 16 124/73 (90) 96 02/16/17 07:00 60 02/16/17 04:00 98.3 69 20 139/65 (89) 95 02/16/17 00:00 97.8 62 20 124/57 (79) 95 02/15/17 23:17 65 02/15/17 20:00 98.4 64 20 121/59 (79) 94 02/15/17 18:19 71 121/56 (77) 02/15/17 18:17 69 119/57 (77) 02/15/17 18:15 98.5 64 20 163/70 (101) 97 02/15/17 18:04 02/15/17 17:35 66 18 96 02/15/17 16:57 123/63 (83) 02/15/17 15:00 98 I/O 02/15/17 02/15/17 02/15/17 02/16/17 02/16/17 02/16/17 07:00 15:00 23:00 07:00 15:00 23:00 Intake Total 636.7 ml 223.8 ml 440 ml Balance 636.7 ml 223.8 ml 440 ml Intake Oral 0 ml IV Total 636.7 ml 223.8 ml 440 ml # Voids 2 # Bowel Movements 0 Result Diagram: 02/16/17 0550 02/16/17 0550 Objective Remarks GENERAL: Well-nourished, well-developed patient. SKIN: Warm and dry. HEAD: Normocephalic. EYES: No scleral icterus. No injection or drainage. NECK: Supple, trachea midline. No JVD or lymphadenopathy. CARDIOVASCULAR: Regular rate and rhythm without murmurs, gallops, or rubs. RESPIRATORY: Breath sounds equal bilaterally. No accessory muscle use. GASTROINTESTINAL: Abdomen soft, non-tender, nondistended. EXTREMITIES: No cyanosis, or edema. NEUROLOGICAL: Awake, alert, and oriented x 3. Non-focal. A/P Assessment and Plan -Positive Hemoccult. Discussed with Dr. Samuels/GI. Patient has had 5 colonoscopies in the past 2 years. Patient does have iron deficiency anemia and is noncompliant with her iron. Patient did have microscopic colitis on previous colonoscopy and will be started on budenoside PO. Patient is recommended to restart iron supplementation and follow-up with Dr. gladys kenny in his office. -Recurrent hypokalemia. Probably secondary to chronic diarrhea. Repeat level pending. If that is improved she can be discharged home. I will prescribe her potassium supplementation. Rosario Palomino MD Feb 16, 2017 14:47
[2017-02-16] MEDS ORDERED: FERR325T18 PO (14:48)
[2017-02-16 14:49] LABS: POTASSIUM 2.9 MEQ/L (3.5-5.1)
[2017-02-16 15:00] VITALS: PULSE 70
[2017-02-16] MEDS ORDERED: POTA-163 PO (15:16)
== END 2017-02-16 15:55 | disposition home or self-care (01) | DRG 641 ==
LOC: PHED 14:13 → PHEDA 16:48 → PH3B 18:07
PROVIDERS: ADMIT Family Medicine; ATTEND Family Medicine
DX: E87.6 Hypokalemia (principal); G30.9 Alzheimer's disease, unspecified; F02.80 Dementia in other diseases classified elsewhere, unspecified severity, without behavioral disturbance, psychotic disturbance, mood disturbance, and anxiety; K52.9 Noninfective gastroenteritis and colitis, unspecified; I25.10 Atherosclerotic heart disease of native coronary artery without angina pectoris; Z95.5 Presence of coronary angioplasty implant and graft; Z79.02 Long term (current) use of antithrombotics/antiplatelets; Z91.14 Patient's other noncompliance with medication regimen; D50.9 Iron deficiency anemia, unspecified; E03.9 Hypothyroidism, unspecified; E78.5 Hyperlipidemia, unspecified; K21.9 Gastro-esophageal reflux disease without esophagitis; Z87.11 Personal history of peptic ulcer disease; Z86.010 Personal history of colon polyps; Z87.891 Personal history of nicotine dependence
CPT/HCPCS: 76937; 80048; 81001; 83540; 83550; 83735; 84100; 84132; 85007; 85025; 85027; 86850; 86900; 86901; 93005; J3480; J7030

== ENCOUNTER 2017-08-25 13:19 | Emergency (ER) | payer OTHER ==
[~2017-08-25] VITALS: Ht 160 cm; Wt 65.0 kg
[~2017-08-25 13:19] MED LIST changes: -DIPH2.5T14 PO; +FERR325T18 PO; -PLAV75TA29 PO; -TRAZ50TA12 PO
[2017-08-25 13:22] VITALS: BP_SYST 113; BP_SYST 93; BP_DIAS 58; BP_DIAS 62; PULSE 63; RESP 16; TEMP 98.1; O2SAT 97
[2017-08-25 14:06] VITALS: BP 107/62; PULSE 68; RESP 20; O2SAT 95
--- NOTE | 2017-08-25 14:28 | PD ---
HPI Chief Complaint: Abnormal Results Time Seen by Provider: 14:12 Travel History International Travel<30 days: No Contact w/Intl Traveler<30days: No Traveled to known affect area: No History of Present Illness HPI Patient is a 77-year-old female who presents the emergency room for evaluation of low blood pressure. Patient reports that she went to her primary care doctor 's office for a wellness checkup, reports that her blood pressure was as low as 72/60 her primary care doctor's office. Patient reports that she is completely asymptomatic, denies headaches, denies lightheadedness, denies dizziness, denies any chest pain or shortness of breath. Patient is currently not taking any antihypertensives. Patient with no complaints at this time, reports that she did have labs drawn 3 days ago by her primary care doctor, those labs are currently pending. Patient unsure why she is in the emergency room. PFSH Past Medical History Hx Anticoagulant Therapy: Yes Alzheimer's Disease: Yes Cancer: No Cardiovascular Problems: No Diabetes: No Diminished Hearing: No Endocrine: Yes Gastrointestinal Disorders: Yes (Barretts esophagus) GERD: Yes Genitourinary: No Hepatitis: No Hiatal Hernia: No Hypertension: No Immune Disorder: No Implanted Vascular Access Dvce: Yes Musculoskeletal: Yes (neck surgery with titanium plates arthritis) Neurologic: Yes Psychiatric: No Reproductive: No Respiratory: No Immunizations Current: Yes Thyroid Disease: Yes Ulcer: Yes Menopausal: Yes Past Surgical History Abdominal Surgery: Yes (right inguinal hernia repair) Body Medical Devices: hardware in the neck, RIGHT ARM SCREWS Cardiac Surgery: Yes (STENTS) Joint Replacement: No Pacemaker: No Other Surgery: Yes Social History Alcohol Use: Yes (3 glasses of wine daily) Tobacco Use: No (QUIT APPROX 20 YEARS ) Substance Use: No Allergies-Medications (Allergen,Severity, Reaction): Coded Allergies: No Known Allergies (Unverified Allergy, Unknown, 08/25/17) Reported Meds & Prescriptions Reported Meds & Active Scripts Active Potassium Chloride ER (Potassium Chloride) 20 Meq Tab 20 Meq PO BID Ferrous Sulfate 325 Mg (65 Mg Iron) Tablet 325 Mg PO BIDPC Hm Loperamide HCl (Loperamide HCl) 2 Mg Cap 2 Mg PO Q6HR PRN Cholestyramine 4 Gm/Pkt Powd 4 Gm PO Q6HR 14 Days Reported Levothyroxine (Levothyroxine Sodium) 75 Mcg Tab 75 Mcg PO DAILY Lipitor (Atorvastatin Calcium) 40 Mg Tab 40 Mg PO DAILY Review of Systems General / Constitutional: No: Fever Eyes: No: Visual changes HENT: No: Headaches, Lightheadedness Cardiovascular: No: Chest Pain or Discomfort Respiratory: No: Shortness of Breath Gastrointestinal: No: Abdominal Pain Genitourinary: No: Dysuria Musculoskeletal: No: Pain Skin: No Rash Neurologic: No: Weakness, Dizziness, Syncope, Focal Abnormalities, Coordination Problem, Headache Psychiatric: No: Depression Endocrine: No: Polydipsia Hematologic/Lymphatic: No: Easy Bruising Physical Exam Narrative GENERAL: NAD, nontoxic SKIN: Focused skin assessment warm/dry. HEAD: Atraumatic. Normocephalic. EYES: Pupils equal and round. No scleral icterus. No injection or drainage. ENT: No nasal bleeding or discharge. Mucous membranes pink and moist. NECK: Trachea midline. No JVD. CARDIOVASCULAR: Regular rate and rhythm. No murmur appreciated. RESPIRATORY: No accessory muscle use. Clear to auscultation. Breath sounds equal bilaterally. GASTROINTESTINAL: Abdomen soft, non-tender, nondistended. Hepatic and splenic margins not palpable. MUSCULOSKELETAL: No obvious deformities. No clubbing. No cyanosis. No edema. NEUROLOGICAL: Awake and alert. No obvious cranial nerve deficits. Motor grossly within normal limits. Normal speech. CN 2-12 grossly intact with no neurological deficits PSYCHIATRIC: Appropriate mood and affect; insight and judgment normal. Data Data Last Documented VS Vital Signs Date Time Temp Pulse Resp B/P (MAP) Pulse Ox O2 Delivery O2 Flow Rate FiO2 08/25/17 14:53 58 16 123/63 (83) 63 16 110/64 (79) 64 16 96/51 (66) 08/25/17 14:06 95 08/25/17 13:22 98.1 Orders Orders Orthostatic Vital Signs (08/25/17 14:23) Electrocardiogram (08/25/17 ) Ckmb (Isoenzyme) Profile (08/25/17 14:45) Complete Blood Count With Diff (08/25/17 14:45) Comprehensive Metabolic Panel (08/25/17 14:45) Prothrombin Time / Inr (Pt) (08/25/17 14:45) Act Partial Throm Time (Ptt) (08/25/17 14:45) Troponin I (08/25/17 14:45) Iv Access Insert/Monitor (08/25/17 14:45) Sodium Chlor 0.9% 1000 Ml Inj (Ns 1000 M (08/25/17 14:45) Sodium Chloride 0.9% Flush (Ns Flush) (08/25/17 14:45) Labs Laboratory Tests Test 08/25/17 14:40 White Blood Count 8.4 TH/MM3 Red Blood Count 3.84 MIL/MM3 Hemoglobin 12.9 GM/DL Hematocrit 37.9 % Mean Corpuscular Volume 98.7 FL Mean Corpuscular Hemoglobin 33.5 PG Mean Corpuscular Hemoglobin Concent 33.9 % Red Cell Distribution Width 13.8 % Platelet Count 265 TH/MM3 Mean Platelet Volume 9.4 FL Neutrophils (%) (Auto) 70.0 % Lymphocytes (%) (Auto) 16.4 % Monocytes (%) (Auto) 10.9 % Eosinophils (%) (Auto) 1.6 % Basophils (%) (Auto) 1.1 % Neutrophils # (Auto) 5.9 TH/MM3 Lymphocytes # (Auto) 1.4 TH/MM3 Monocytes # (Auto) 0.9 TH/MM3 Eosinophils # (Auto) 0.1 TH/MM3 Basophils # (Auto) 0.1 TH/MM3 CBC Comment DIFF FINAL Differential Comment Prothrombin Time 10.0 SEC Prothromb Time International Ratio 1.0 RATIO Activated Partial Thromboplast Time 25.0 SEC Blood Urea Nitrogen 13 MG/DL Creatinine 0.78 MG/DL Random Glucose 88 MG/DL Total Protein 7.2 GM/DL Albumin 3.5 GM/DL Calcium Level 9.1 MG/DL Alkaline Phosphatase 94 U/L Aspartate Amino Transf (AST/SGOT) 19 U/L Alanine Aminotransferase (ALT/SGPT) 17 U/L Total Bilirubin 0.7 MG/DL Sodium Level 138 MEQ/L Potassium Level 4.4 MEQ/L Chloride Level 110 MEQ/L Carbon Dioxide Level 22.2 MEQ/L Anion Gap 6 MEQ/L Estimat Glomerular Filtration Rate 71 ML/MIN Total Creatine Kinase 54 U/L Troponin I LESS THAN 0.02 NG/ML MDM Medical Decision Making Medical Screen Exam Complete: Yes Emergency Medical Condition: Yes Medical Record Reviewed: Yes Interpretation(s) Vital Signs Date Time Temp Pulse Resp B/P (MAP) Pulse Ox O2 Delivery O2 Flow Rate FiO2 08/25/17 14:06 68 20 107/62 (77) 95 08/25/17 13:22 98.1 63 16 113/58 (76) 97 93/62 (72) Differential Diagnosis electrolyte abnormality, acs, arrhythmia, orthostatic hypotension Narrative Course During the course of the patients emergency department visit, the patients history, examination, and differential diagnosis were reviewed with the patient. The patient was placed on a cardiac monitor technician with oximetry and frequent blood pressure monitoring. Patient currently refusing workup, refusing blood work as she had blood work 3 days ago. I did talk to Sravan at Dr. Den Barroso's office, patient was seen by Brianna Hewitt and was sent to the ER by her for hypotension. Patient at this time is completely asymptomatic, vital signs are stable, plan to obtain EKG and orthostatic vital signs. Will observe patient. The patient was initially provided IVF The patients laboratory studies were reviewed and remarkable for CBC & BMP Diagram 08/25/17 14:40 Total Protein 7.2, Albumin 3.5, Calcium Level 9.1, Alkaline Phosphatase 94, Aspartate Amino Transf (AST/SGOT) 19, Alanine Aminotransferase (ALT/SGPT) 17, Total Bilirubin 0.7 Patient reevaluated, patient with no complaints at this time. Patient will be discharged home, she will follow-up with her primary care doctor for repeat blood pressure tomorrow. Signs and symptoms of when to return to the emergency room was reviewed with the patient in detail. Diagnosis Primary Impression: Examination Patient Instructions: General Instructions Additional Instructions: Please provide patient with a copy of their lab work and studies at discharge* * Please follow up with your primary care doctor in 1-2 days Return to the ER if symptoms worsen or progress Return to the ER as needed Disposition: 01 DISCHARGE HOME Condition: Stable Dai Osman DO August 25, 2017 14:28
[2017-08-25] MEDS ORDERED: SODIUM CHLOR 0.9% 1000 ML INJ 1,000 ML IV SCH (14:45)
[2017-08-25] MEDS ORDERED: SODIUM CHLORIDE 0.9% FLUSH 10 ML FLUSH IV FLUSH PRN (14:45)
[2017-08-25 14:53] VITALS: BP_SYST 110; BP_SYST 123; BP_SYST 96; BP_DIAS 51; BP_DIAS 63; BP_DIAS 64; RESP 16
[2017-08-25 14:57] LABS: AUTOMATED NEUTROPHIL # 5.9 TH/MM3 (1.8-7.7); BASOPHIL # 0.1 TH/MM3 (0-0.2); BASOPHIL % 1.1 % (0.0-2.0); EOSINOPHIL # 0.1 TH/MM3 (0-0.4); EOSINOPHIL % 1.6 % (0.0-4.0); HEMATOCRIT 37.9 % (35.0-46.0); HEMOGLOBIN 12.9 GM/DL (11.6-15.3); LYMPH % 16.4 % (9.0-44.0); LYMPHOCYTE # 1.4 TH/MM3 (1.0-4.8); MEAN CELL VOLUME 98.7 FL (80.0-100.0); MEAN CORPUSCULAR HEMOGLOBIN 33.5 PG (27.0-34.0); MEAN CORPUSCULAR HGB CONC 33.9 % (32.0-36.0); MEAN PLATELET VOLUME 9.4 FL (7.0-11.0); MONO % 10.9 % (0.0-8.0); MONOCYTE # 0.9 TH/MM3 (0-0.9); PLATELET COUNT 265 TH/MM3 (150-450); RED BLOOD COUNT 3.84 MIL/MM3 (4.00-5.30); RED CELL DISTRIBUTION WIDTH 13.8 % (11.6-17.2); WHITE BLOOD COUNT 8.4 TH/MM3 (4.0-11.0)
[2017-08-25 15:10] LABS: CHLORIDE 110 MEQ/L (98-107); SODIUM (NA) 138 MEQ/L (136-145)
[2017-08-25 15:13] LABS: CALCIUM 9.1 MG/DL (8.5-10.1)
[2017-08-25 15:14] LABS: ALBUMIN 3.5 GM/DL (3.4-5.0); BICARBONATE 22.2 MEQ/L (21.0-32.0); BLOOD UREA NITROGEN 13 MG/DL (7-18); GLUCOSE,RANDOM 88 MG/DL (74-106)
[2017-08-25 15:17] LABS: ALT (GPT) 17 U/L (10-53); AST (GOT) 19 U/L (15-37); CREATININE 0.78 MG/DL (0.50-1.00); GLOMERULAR FILTRATION RATE 71 ML/MIN (>89)
[2017-08-25 15:18] LABS: TOTAL BILIRUBIN ADULT 0.7 MG/DL (0.2-1.0)
[2017-08-25 15:19] LABS: TOTAL PROTEIN 7.2 GM/DL (6.4-8.2)
[2017-08-25 15:20] LABS: ALKALINE PHOSPHATASE 94 U/L (45-117)
[2017-08-25 15:22] LABS: TROPONIN I LESS THAN 0.02 NG/ML (0.02-0.05)
[2017-08-25 16:15] VITALS: BP 137/68
--- NOTE | 2017-08-27 08:27 | EKG ---
Date Performed: 08/25/2017 Time Performed: 14:45:47 PTAGE: 77 years EKG: SINUS BRADYCARDIA RIGHT BUNDLE BRANCH BLOCK ABNORMAL ECG PREVIOUS TRACING : 02/15/2017 15.22 DOCTOR: Chacha Jauregui Interpretating Date/Time 08/27/2017 08:18:10
== END 2017-08-25 16:24 | disposition home or self-care (01) ==
LOC: PHED 13:19
DX: I95.9 Hypotension, unspecified (principal); R00.1 Bradycardia, unspecified; I45.10 Unspecified right bundle-branch block; G30.9 Alzheimer's disease, unspecified; F02.80 Dementia in other diseases classified elsewhere, unspecified severity, without behavioral disturbance, psychotic disturbance, mood disturbance, and anxiety; K22.70 Barrett's esophagus without dysplasia; K21.9 Gastro-esophageal reflux disease without esophagitis; E07.9 Disorder of thyroid, unspecified
CPT/HCPCS: 80053; 82550; 84484; 85025; 85610; 85730; 93005; 96360; 99284; J7030

== ENCOUNTER 2018-01-10 12:07 | Inpatient (IN) ==
[2018-01-10] MEDS ORDERED: Orphenadrine Inj 60 MG/2 ML Ampul IM ONE (13:45)
[2018-01-10] MEDS ORDERED: Acetaminophen 325 MG Tablet PO ONE (13:45)
--- NOTE | 2018-01-10 13:51 | ED ---
HPI General Chief Complaint: Neck Pain/Injury Stated Complaint: neck injury Time Seen by Provider: 01/10/18 13:37 Source: patient and RN notes reviewed Mode of arrival: ambulatory Limitations: no limitations History of Present Illness HPI Narrative: 77-year-old female presents to the emergency department with family member at bedside. Patient states that 2 nights ago, she fell asleep with her children to her chest. When she awoke she had posterior neck pain. She does report history of cervical fusion and chronic neck pain. Patient took ibuprofen today for her pain. She also has been taking Tylenol without relief. Her family member at bedside states that she cannot rule out a fall. The patient adamantly denies falling. However, family member states that she does have history of dementia and has fallen in the past. The patient denies any headache. She denies any chest pain or shortness of breath. She denies any abdominal pain. No nausea, vomiting, diarrhea. Blood pressure during my exam is 99/66. Family at her bedside states this is the patient's normal blood pressure. Patient states pain is 5/10 as long as she is keeping her head still. However, rotation of the cervical spine increases the pain to 9/10. She does report history of similar pain in the past. Moderate severity. MD complaint: Reports neck pain Onset (ago): day(s) (2) Place: Reports home Severity: moderate Severity scale (1-10): 5 Quality: Reports aching Duration: constant Relieving factors: immobilization Exacerbating factors: movement of neck Context: Reports other (Fell asleep with chin to chest) Associated symptoms: Reports none Treatments prior to arrival: Reports acetaminophen, ibuprofen and heat therapy Related Data Home Medications Medication Instructions Recorded Confirmed atorvastatin 10 mg PO DAILY 01/10/18 01/10/18 donepezil [Aricept] 5 mg PO DAILY 01/10/18 01/10/18 memantine [Namenda] 5 mg PO BID 01/10/18 01/10/18 Allergies Allergy/AdvReac Type Severity Reaction Status Date / Time No Known Allergies Allergy Unknown Uncoded 08/25/17 14:09 Review of Systems ROS: all other systems reviewed are negative PMFSH Medical History Medical History History of dementia (Acute) History of high cholesterol (Acute) Hx of irritable bowel syndrome (Acute) Surgical History Surgical History History of renal stent (Acute) Hx of fusion of cervical spine (Acute) Social History Social History Substance History: No History of Abuse Second Hand Smoke Exposure: No Smoking Status: Former smoker How Often Do You Have a Drink Containing Alcohol: 4 or more times a week Recent Travel in [facility] within the Last 8 Weeks: No Recent Out of Country Travel within the Last 8 Weeks: No Immunization History Tetanus Immunization: Unsure Exam Narrative Exam Narrative: GENERAL: Well-nourished, well-developed elderly female patient, afebrile. SKIN: Focused skin assessment warm/dry. HEAD: Normocephalic. Atraumatic. EYES: No scleral icterus. No injection or drainage. NECK: Supple, trachea midline. No JVD or lymphadenopathy. CARDIOVASCULAR: Regular rate and rhythm without murmurs, gallops, or rubs. RESPIRATORY: Breath sounds equal bilaterally. No accessory muscle use. Lung sounds are clear to auscultation. GASTROINTESTINAL: Abdomen soft, non-tender, nondistended. MUSCULOSKELETAL: No cyanosis, or edema. Bilateral upper extremity strength 5/5. BACK: No obvious deformity. No CVA tenderness. Patient has tenderness to palpation over the midline cervical spine. Course Initial Documented Vital Signs Temperature 97.9 F 01/10/18 12:26 Pulse Rate 84 01/10/18 12:26 Respiratory Rate 20 01/10/18 12:26 Blood Pressure 98/60 L 01/10/18 12:26 Pulse Oximetry 93 L 01/10/18 12:26 Last Documented Vital Signs Temperature 97.9 F 01/10/18 12:26 Pulse Rate 71 01/10/18 16:32 Respiratory Rate 16 01/10/18 16:32 Blood Pressure 114/70 01/10/18 16:32 Pulse Oximetry 93 L 01/10/18 16:32 Medical Decision Making [facility] Narrative Medical decision making narrative: 77-year-old female presents to the emergency department for evaluation of neck pain since she fell asleep with her child to her chest. Her family member at bedside states that she could have fallen, but the patient adamantly denies this stating she would remember this. Due to possibility of fall, CT of the cervical spine and head are ordered and pending. Patient is given Tylenol 650 mg p.o., Norflex [address] of the cervical spine shows fractures of the mid to upper waist of C2 with minimal anterior apex angulation, fractures involving the posterior lateral arches of C1 bilaterally. CT of the head shows no acute intracranial abnormality. I spoke to the neurosurgeon on-call, Dr. Williamson, who recommends transfer the patient to the main hospital to [facility] with consult to him. Of note, after I discussed the plan with the patient and her family, the patient 's family does state that she has a problem with alcohol and drinks a significant amount of alcohol the night her pain started. A fall is very likely. They do state that she is an alcoholic as well. Dr. Carson, compliance field technician, accepted admission. Medical Screen Exam Complete: Yes Emergency Medical Condition: Yes Differential Diagnosis Differential Diagnosis: cervical strain vs. acute exacerbation of chronic neck pain vs. muscle spasm vs. torticollis vs. fracture Medical Records Medical records reviewed: Yes I reviewed the patient's medical records. Lab Data Result diagrams: 01/10/18 16:40 01/10/18 16:40 Lab Results 01/10/18 Range/Units 16:40 CBC w Diff Auto diff final WBC 11.0 (4.0-11.0) th/mm3 RBC 3.96 L (4.00-5.30) mil/mm3 Hgb 13.8 (11.6-15.3) gm/dL Hct 40.4 (35.0-46.0) % MCV 102.0 H (80.0-100.0) fL MCH 34.7 H (27.0-34.0) pg MCHC 34.0 (32.0-36.0) % RDW 13.3 (11.6-17.2) % Plt Count 224 (150-450) th/mm3 MPV 8.8 (7.0-11.0) fL Neut % (Auto) 76.3 H (16.0-70.0) % Lymph % (Auto) 12.5 (9.0-44.0) % [place] % (Auto) 8.8 H (0.0-8.0) % Eos % (Auto) 1.3 (0.0-4.0) % Baso % (Auto) 1.1 (0.0-2.0) % Neut # (Auto) 8.4 H (1.8-7.7) th/mm3 Lymph # (Auto) 1.4 (1.0-4.8) th/mm3 [place] # (Auto) 1.0 H (0.0-0.9) th/mm3 Eos # (Auto) 0.1 (0.0-0.4) th/mm3 Baso # (Auto) 0.1 (0.0-0.2) th/mm3 WBC Differential . Differential Comment . Imaging Data Radiologist's impression: Cervical Spine CT 01/10/18 13:45 CONCLUSION: 1. Fracture of the mid to upper waist of C2 with minimal anterior apex angulation. 2. Fractures involving the posterior lateral arches of C1 bilaterally. 3. Minimal anterolisthesis C2 on 3, C3 on 4 and C4 on 5. 4. There is anterior fusion C6-7. Head CT 01/10/18 13:45 CONCLUSION: 1. No acute intracranial abnormality. . Discharge Plan Discharge Disposition Patient Disposition: 30 Still Patient Discharge Details Diagnosis: C1 cervical fracture, C2 cervical fracture Physicians Team ED Provider: Chau Meza ED Midlevel Provider: Dorina Johnson Primary Care Provider: Luis Barroso Rxs /Orders / Referrals /Forms Prescriptions: No Action donepezil [Aricept] 5 mg Tablet 5 mg PO DAILY RF: 0 atorvastatin 10 mg Tablet 10 mg PO DAILY RF: 0 memantine [Namenda] 5 mg Tablet 5 mg PO BID RF: 0 Status ED Status: With Doctor
--- NOTE | 2018-01-10 15:10 | CT ---
EXAM DATE: 01/10/2018 1:56 PM EDT AGE/SEX: 77 years / Female INDICATIONS: Posterior head and neck pain. No known injury. Patient slept on it wrong and woke up wi th pain. CLINICAL DATA: This is the patient's initial encounter. Patient reports that signs and symptoms have been present for 4 - 6 days and indicates a pain score of 7/10. MEDICAL/SURGICAL HISTORY: Hypercholesterolemia. Fusion, cervical. RADIATION DOSE: 57.58 CTDI (mGy) COMPARISON: POI, CT BRAIN W/O CONTRAST, 09/08/2016. . TECHNIQUE: CT of the head without contrast. Using automated exposure control and adjustment of the mA and/or kV according to patient size, radiation dose was kept as low as reasonably achievable to ob tain optimal diagnostic quality images. DICOM format image data is available electronically for revi ew and comparison. FINDINGS: Cerebrum: The ventricles are normal for age. No evidence of midline shift, mass lesion, hemorrhage or acute infarction. No extraaxial fluid collections are seen. Posterior Fossa: The cerebellum and brainstem are intact. The 4th ventricle is midline. The cerebe llopontine angle is unremarkable. Extracranial: The visualized portion of the orbits is intact. Skull: The calvaria is intact. No evidence of skull fracture. CONCLUSION: 1. No acute intracranial abnormality. . Electronically signed by: Mark Palomares MD 01/10/2018 3:08 PM EDT
--- NOTE | 2018-01-10 15:22 | CT ---
EXAM DATE: 01/10/2018 1:56 PM EDT AGE/SEX: 77 years / Female INDICATIONS: Posterior head and neck pain. No known injury. Patient slept on it wrong and woke up wi th pain. CLINICAL DATA: This is the patient's initial encounter. Patient reports that signs and symptoms have been present for 4 - 6 days and indicates a pain score of 7/10. MEDICAL/SURGICAL HISTORY: Hypercholesterolemia. Fusion, cervical. RADIATION DOSE: 25.65 CTDI (mGy) COMPARISON: POI, CTA CAROTID ARTERIES, 07/23/2017. . TECHNIQUE: Contiguous axial images were obtained using helical multirow detector technique. The vol umetric data was post-processed with multiplanar reconstruction in oblique axial, sagittal, and coron al planes. Using automated exposure control and adjustment of the mA and/or kV according to patient s ize, radiation dose was kept as low as reasonably achievable to obtain optimal diagnostic quality reese ges. DICOM format image data is available electronically for review and comparison. FINDINGS: Vertebrae: There is slight fracture through the mid to upper waist of C2 with minimal anterior apex angulation. There is fracture of the anterior arch of C1 more notably to the left of midline and also fractures involving posterior lateral arches of C1. Alignment: Minimal anterolisthesis C2 on 3 and C3 on 4 and C4 on 5. Anterior fusion plate C6-7. Dege nerative changes at C5-6 and C7-T1.. C2-3: The bony spinal canal is normal in size. No evidence of disc bulge or herniation. Right neura l foramen is patent. Mild to moderate narrowing left neural foramen. C3-4: The bony spinal canal is normal in size. No evidence of disc bulge or herniation. Moderate le ft and mild right neural foraminal narrowing. C4-5: The bony spinal canal is normal in size. No evidence of disc bulge or herniation. Moderate bi lateral neural foraminal narrowing, greater on the left. C5-6: The bony spinal canal is normal in size. No evidence of disc bulge or herniation. Mild neural foraminal narrowing bilaterally. C6-7: The bony spinal canal is normal in size. No evidence of disc bulge or herniation. The neural foramina are bilaterally patent. C7-T1: The bony spinal canal is normal in size. No evidence of disc bulge or herniation. The neura l foramina are bilaterally patent. CONCLUSION: 1. Fracture of the mid to upper waist of C2 with minimal anterior apex angulation. 2. Fractures involving the posterior lateral arches of C1 bilaterally. 3. Minimal anterolisthesis C2 on 3, C3 on 4 and C4 on 5. 4. There is anterior fusion C6-7. Electronically signed by: Mark Palomares MD 01/10/2018 3:20 PM EDT
[2018-01-10 16:49] LABS: Baso # (Auto) 0.1 th/mm3 (0.0-0.2); Baso % (Auto) 1.1 % (0.0-2.0); Eos # (Auto) 0.1 th/mm3 (0.0-0.4); Eos % (Auto) 1.3 % (0.0-4.0); Hematocrit 40.4 % (35.0-46.0); Hemoglobin 13.8 gm/dL (11.6-15.3); Lymph # (Auto) 1.4 th/mm3 (1.0-4.8); Lymph % (Auto) 12.5 % (9.0-44.0); Mean Corpuscular Hemoglobin 34.7 pg (27.0-34.0); Mean Platelet Volume 8.8 fL (7.0-11.0); Mono % (Auto) 8.8 % (0.0-8.0); Neut # (Auto) 8.4 th/mm3 (1.8-7.7); Neut % (Auto) 76.3 % (16.0-70.0); Platelet Count 224 th/mm3 (150-450); Red Blood Count 3.96 mil/mm3 (4.00-5.30); Red Cell Distribution Width 13.3 % (11.6-17.2)
[2018-01-10] MEDS ORDERED: Bisacodyl 10 MG Supp RECTAL PRN (17:02)
[2018-01-10 17:10] LABS: Activated Partial Thrombo Time 24.7 sec (24.3-30.1)
[2018-01-10 17:13] LABS: Chloride 107 meq/L (98-107); Potassium 3.9 meq/L (3.5-5.1); Sodium 139 meq/L (136-145)
[2018-01-10 17:16] LABS: Albumin 3.5 g/dL (3.4-5.0); Anion Gap 13 meq/L (5-15); Calcium 9.1 mg/dL (8.5-10.1); Carbon Dioxide 19.4 meq/L (21.0-32.0); Glucose,Random 93 mg/dL (74-106)
[2018-01-10 17:17] LABS: Blood Urea Nitrogen 18 mg/dL (7-18)
[2018-01-10 17:19] LABS: Alanine Aminotransferase 16 U/L (10-53)
[2018-01-10 17:20] LABS: Aspartate Aminotransferase 16 U/L (15-37); Glomerular Filtration Rate 40 mL/min (>89)
[2018-01-10 17:21] LABS: Total Protein 7.5 g/dL (6.4-8.2)
[2018-01-10 17:22] LABS: Alkaline Phosphatase 100 U/L (45-117)
[2018-01-10] MEDS: Sod Chloride 0.9% Inj 1,000 ML IV.CONT SCH (17:24)
[2018-01-10] MEDS: Morphine Sulfate Inj 2 MG/ML Vial IV.PUSH PRN (18:23)
--- NOTE | 2018-01-10 20:01 | P.CONNS ---
History of Present Illness Service: Neurosurgery Consult date: 01/10/18 Requesting Physician: Chau Meza Reason for Consult: C1/C2 fractures Primary Care Provider: Luis Barroso MD Family Provider: Luis Barroso MD History of Present Illness: 77-year-old female who presented to [place] emergency room today with complaints of neck pain since last night. She denies any falls last night although relates that about 6 weeks ago she did fall and hurt her neck but did not seek any attention and is subsequently improved until recent exacerbation. Denies any numbness or paresthesias in the upper or lower extremities. CT scan of the head is negative and CT scan of the cervical spine reveals C1 anterior and posterior arch fractures along with a C2 type II odontoid fracture with a dense slightly displaced and angled posterior to the body. She has a remote history of anterior C6-7 fusion. According to the emergency room notes that she does have a history of alcohol abuse and fall last night which she denies it. She also has a history of dementia. She is placed in a cervical collar and transferred to [facility] main intensive care unit for further management. Review of Systems Constitutional: Denies anorexia, Denies body ache(s), Denies chills, Denies daytime sleepiness, Denies excessive sweating, Denies fatigue, Denies fever(s), Denies headache(s), Denies increased appetite, Denies lack of energy, Denies malaise, Denies night sweats, Denies weakness, Denies weight gain, Denies weight loss, Denies other Eyes: Denies blind spots, Denies blurry vision, Denies bulging eyes, Denies change in vision, Denies double vision, Denies discharge, Denies dry eyes, Denies floaters, Denies irritation, Denies itchy eyes, Denies loss of vision, Denies pain, Denies requires corrective lenses, Denies sensitivity to light, Denies other Ears, Nose, Mouth, and Throat: Reports neck pain, Denies abnormal hearing, Denies bleeding gums, Denies bad breath, Denies change in voice, Denies dental pain, Denies difficulty swallowing, Denies dizziness, Denies dry mouth, Denies ear discharge, Denies ear pain, Denies facial pain, Denies headache(s), Denies hearing loss, Denies hoarseness, Denies lip swelling, Denies nosebleed, Denies mouth lesions, Denies mouth pain, Denies nasal congestion, Denies nasal discharge, Denies nasal obstruction, Denies nasal trauma, Denies neck lump, Denies nose pain, Denies pain with swallowing, Denies poor balance, Denies post nasal drip, Denies ringing in the ears, Denies sinus pain, Denies sinus pressure , Denies sore throat, Denies throat swelling, Denies tongue swelling, Denies other Cardiovascular: Denies chest pain, Denies chest pain at rest, Denies chest pain with activity, Denies excessive sweating, Denies fainting, Denies fast heart rate, Denies foot swelling, Denies generalized swelling, Denies irregular heart rhythm, Denies leg pain with activity, Denies leg sores, Denies leg swelling, Denies lightheadedness, Denies radiating jaw, neck or arm pain, Denies rapid, pounding, or irregular heartbeat, Denies shortness of breath, Denies shortness of breath with activity, Denies shortness of breath when lying down, Denies shortness of breath causing sudden awakening, Denies slow heart rate, Denies other Respiratory: Denies change in phlegm color, Denies chest congestion, Denies cough, Denies coughing up blood, Denies excessive phlegm production, Denies pain on inspiration, Denies pain with cough, Denies shortness of breath, Denies shortness of breath with activity, Denies snoring, Denies stridor, Denies wheezing, Denies other Gastrointestinal: Denies abdominal pain, Denies belching, Denies black, tarry stools, Denies bloating, Denies bright, red blood in stools, Denies change in bowel habits, Denies constant urge to pass stool, Denies change in stools, Denies coffee ground vomit, Denies constipation, Denies cramping, Denies difficulty swallowing, Denies excessive passing of gas, Denies feeling full early, Denies heartburn, Denies incontinent of stools, Denies loose stools, Denies nausea, Denies pain with swallowing, Denies vomiting, Denies vomiting blood, Denies other Genitourinary: Denies abnormal periods, Denies abnormal vaginal bleeding, Denies absent period, Denies bleeding between periods, Denies blood in urine, Denies difficulty starting urination, Denies difficulty urinating, Denies dribbling after urination, Denies frequent nighttime urination, Denies genital itching, Denies genital lesions, Denies heavy periods, Denies hot flashes, Denies light periods, Denies nipple discharge, Denies painful intercourse, Denies painful periods, Denies painful urination, Denies pelvic pain, Denies prolapse symptoms, Denies sexual problems, Denies side pain, Denies urinary incontinence, Denies urinary urgency, Denies vaginal discharge, Denies vaginal dryness, Denies vaginal odor, Denies vaginal itching, Denies other Musculoskeletal: Reports neck pain, Denies abnormal walking, Denies back pain, Denies body aches, Denies decreased muscle mass, Denies deformity, Denies joint pain, Denies joint swelling, Denies limited joint movement, Denies loss of height, Denies muscle cramps, Denies muscle weakness, Denies numbness, Denies radiating pain into limb, Denies stiffness, Denies tingling, Denies other Skin/Breast: Denies acne, Denies bleeding lesions, Denies boil, Denies breast swelling, Denies breast skin changes, Denies breast pain, Denies breast lump, Denies change in breast shape, Denies change in hair, Denies change in skin color, Denies changing lesions, Denies dry skin, Denies excessive hair growth, Denies hair loss, Denies itching, Denies lesions, Denies nail changes, Denies new lesions, Denies nipple discharge, Denies non-healing lesions, Denies redness , Denies sensitivity to light, Denies rash, Denies skin pain, Denies skin ulcer , Denies sores, Denies stretch akbar, Denies unusual bruising, Denies wounds, Denies yellowing of the skin, Denies other Neurologic: Denies abnormal hearing, Denies abnormal movements, Denies abnormal speech, Denies abnormal walking, Denies behavioral changes, Denies burning sensations, Denies confusion, Denies dizziness, Denies fainting, Denies frequent falls, Denies headache(s), Denies lack of coordination, Denies localized weakness, Denies loss of vision, Denies memory loss, Denies numbness, Denies other visual disturbances, Denies radiating pain, Denies restless legs, Denies convulsions, Denies seizure-like activity, Denies sensory deficit, Denies tingling, Denies tingling/numbness/burning sensations, Denies tremor(s), Denies unsteadiness, Denies weakness, Denies other Psychiatric: Denies abnormal sleep pattern, Denies anxiety, Denies behavioral changes, Denies change in appetite, Denies change in sex drive, Denies confusion , Denies depression, Denies difficulty concentrating, Denies hearing things others do not hear, Denies hopelessness, Denies irritability, Denies lack of enjoyment, Denies memory loss, Denies mood swings, Denies panic attacks, Denies paranoia, Denies seeing things others do not see, Denies sensing things others do not sense, Denies tactile hallucinations, Denies thoughts of hurting/killing others, Denies thoughts of hurting/killing yourself, Denies other Endocrine: Denies cold intolerance, Denies excessive sweating, Denies flushing, Denies heat intolerance, Denies increased hunger, Denies increased thirst, Denies increased urination, Denies rapid, pounding, or irregular heartbeat, Denies other Hematologic/Lymphatic: Denies easy bleeding, Denies easy bruising, Denies enlarged lymph nodes, Denies other Allergic/Immunologic: Denies GI upset with certain foods, Denies hives, Denies itchy eyes, Denies lip swelling, Denies seasonal runny nose, Denies throat swelling, Denies tongue swelling, Denies wheezing, Denies other PMFSH - History History Provided By: Patient - Medical History Medical History: Medical History (Last Reviewed 01/10/18 @ 19:56 by Abdulaziz Gottlieb MD) History of dementia History of high cholesterol Hx of irritable bowel syndrome - Surgical History Surgical History: Surgical History (Last Reviewed 01/10/18 @ 19:56 by Abdulaziz Gottlieb MD) History of renal stent Hx of fusion of cervical spine - Tobacco History Second Hand Smoke Exposure: No Tobacco Use In Past 30 Days: No Smoking Status: Former smoker - Alcohol History How Often Do You Have a Drink Containing Alcohol: 4 or more times a week - Substance Use History Substance History: No History of Abuse - Travel History Recent Travel in the [facility] Within the Last 8 Weeks: No Recent Travel Out of the Country Within the Last 8 Weeks: No - Immunization History Tetanus Immunization: Unsure Medications and Allergies Active Medications: Active Medications Al Hydroxide/Mg Hydroxide (Milk Of Magnesia Liq) 30 ml PO Q12H PRN PRN Reason: Mild Constipation Albuterol (Duoneb Neb (Prn)) 1 ampul NEB Q2HR NEB PRN PRN Reason: WHEEZING Atorvastatin Calcium (Lipitor) 10 mg PO DAILY [facility] Bisacodyl (Dulcolax Supp) 10 mg RECTAL DAILY PRN PRN Reason: SEVERE CONSITIPATION Chlorhexidine Gluconate (Chlorhexidine 2% Cloth) 3 pack TOPICAL DAILY@0400 [facility] Stop: 01/16/18 03:59 Chlorhexidine Gluconate (Chlorhexidine 2% Cloth) 3 pack TOPICAL DAILY@0400 PRN PRN Reason: Extra cloth needed Stop: 01/16/18 03:59 Donepezil HCl (Aricept) 5 mg PO DAILY [facility] Sodium Chloride (Ns Inj) 1,000 mls @ 84 mls/hr IV.CONT .[id number] [facility] Last Admin: 01/10/18 17:24 Dose: 84 mls/hr Lactulose (Lactulose Liq) 30 ml PO DAILY PRN PRN Reason: SEVERE CONSITIPATION Memantine (Namenda) 5 mg PO BID [facility] Morphine Sulfate (Morphine Inj) 1 mg IV.PUSH Q2H PRN PRN Reason: PAIN SCALE 6 TO 10 Last Admin: 01/10/18 18:23 Dose: 1 mg Ondansetron HCl (Zofran Inj) 4 mg IV.PUSH Q6H PRN PRN Reason: NAUSEA OR VOMITING Senna/Docusate Sodium (Therese-Colace) 1 tab PO BID [facility] Sennosides (Senokot) 17.2 mg PO Q12H PRN PRN Reason: Moderate Constipation Sodium Chloride (Ns Flush) 2 ml IV.FLUSH BID [facility] Sodium Chloride (Ns Flush) 2 ml IV.FLUSH PRN PRN PRN Reason: FLUSH AFTER USING IV ACCESS Allergies Allergy/AdvReac Type Severity Reaction Status Date / Time No Known Drug Allergies Allergy Unknown NONE Verified 01/10/18 18:16 Home Medications Medication Instructions Recorded Confirmed Type atorvastatin 10 mg PO DAILY 01/10/18 01/10/18 History donepezil [Aricept] 5 mg PO DAILY 01/10/18 01/10/18 History memantine [Namenda] 5 mg PO BID 01/10/18 01/10/18 History Exam Vital signs: Vital Signs 01/10/18 12:26 01/10/18 16:32 01/10/18 18:41 Temperature 97.9 F Pulse Rate 84 71 72 Respiratory Rate 20 16 16 Blood Pressure 98/60 L 114/70 112/65 Pulse Oximetry 93 L 93 L 92 L Intake & Output 01/10/18 01/10/18 01/11/18 06:59 18:59 06:59 Weight 66.1 kg - Constitutional no acute distress - Routine HEENT Exam Head: Present: normocephalic, atraumatic Eye: Present: EOMI, PERRL ENT: Present: mucous membranes moist, nares patent, external ear normal - Routine Neck Exam Present: trachea midline, trauma ([place] collar in place) - Routine Respiratory Exam Present: CTA bilaterally - Routine Cardiovascular Exam Present: RRR, S1, S2 - Routine Abdominal Exam Present: soft, normoactive bowel sounds - Routine Extremities Exam Present: full ROM - Routine Skin Exam Present: intact - Routine Neurological Exam Present: oriented X3, CN II-XII intact, plantar reflex, moving all extremities, normal speech Results - Laboratory Findings CBC and BMP: 01/10/18 16:40 01/10/18 16:40 Abnormal lab findings: Abnormal Labs 01/10/18 01/10/18 16:40 16:40 RBC 3.96 L MCV 102.0 H MCH 34.7 H Neut % (Auto) 76.3 H [place] % (Auto) 8.8 H Neut # (Auto) 8.4 H [place] # (Auto) 1.0 H Carbon Dioxide 19.4 L Creatinine 1.30 H Estimated GFR 40 L - Diagnostic Findings Additional findings: Impressions Cervical Spine CT 01/10/18 13:45 CONCLUSION: 1. Fracture of the mid to upper waist of C2 with minimal anterior apex angulation. 2. Fractures involving the posterior lateral arches of C1 bilaterally. 3. Minimal anterolisthesis C2 on 3, C3 on 4 and C4 on 5. 4. There is anterior fusion C6-7. Head CT 01/10/18 13:45 CONCLUSION: 1. No acute intracranial abnormality. . Assessment and Plan - Assessment (1) Posterior displaced Type II dens fracture Code(s): S12.111A - Posterior displaced Type II dens fracture, initial encounter for closed fracture Status: Acute (2) C1 cervical fracture Code(s): S12.000A - Unspecified displaced fracture of first cervical vertebra, initial encounter for closed fracture Status: Acute - Plan 77-year-old female with type II posteriorly angulated C2 odontoid fracture along with anterior and posterior C1 arch fractures. Remote history of anterior C6-7 fusion with plate placement. The odontoid fracture is an unstable injury and recommend a Halo placement to allow the best chance for healing of the C1-C2 fractures. She would also like to discuss this with the family members in the meantime we will maintain her in a cervical collar. Monitor closely for alcohol withdrawal symptoms. Mechanical DVT prophylaxis. (1) Posterior displaced Type II dens fracture Qualifiers: Encounter type: initial encounter Fracture type: closed (2) C1 cervical fracture Qualifiers: Encounter type: initial encounter Fracture type: closed Fracture morphology : unspecified fracture morphology Fracture alignment: displaced Qualified Code (s): S12.000A - Unspecified displaced fracture of first cervical vertebra, initial encounter for closed fracture
[2018-01-10] MEDS: Senna/Docusate Sodium 8.6/50 MG Tablet PO SCH (22:43)
[2018-01-11] MEDS: Morphine Sulfate Inj 2 MG/ML Vial IV.PUSH PRN ×4 (00:12→10:20)
[2018-01-11] MEDS ORDERED: Chlorhexidine Gluconate 2% 1 Pack (2 Cloths) TOPICAL PRN (04:00)
[2018-01-11] MEDS: Chlorhexidine Gluconate 2% 1 Pack (2 Cloths) TOPICAL SCH (04:51)
[2018-01-11] MEDS: Sod Chloride 0.9% Inj 1,000 ML IV.CONT SCH ×3 (05:19→18:58)
[2018-01-11 05:23] LABS: Calcium 8.5 mg/dL (8.5-10.1); Carbon Dioxide 20.9 meq/L (21.0-32.0); Magnesium 2.2 mg/dL (1.5-2.5); Phosphorus 3.7 mg/dL (2.5-4.9); Potassium 3.6 meq/L (3.5-5.1)
[2018-01-11] MEDS: Senna/Docusate Sodium 8.6/50 MG Tablet PO SCH ×2 (08:05→20:17)
--- NOTE | 2018-01-11 09:09 | P.HPCC ---
History of Present Illness Service: Critical care medicine Primary Care Physician: Luis Barroso MD Chief Complaint: Neck pain History of Present Illness: This 77-year-old female presents with severe neck pain. She does report history of cervical fusion and chronic neck pain. Patient took ibuprofen today for her pain. She also has been taking Tylenol without relief. Her family member at bedside states that she cannot rule out a fall. The patient adamantly denies falling. However, family member states that she does have history of dementia and has fallen in the past. The patient denies any headache, chest pain or shortness of breath. No nausea, vomiting, diarrhea. Blood pressure is 99/66. Family at her bedside states this is the patient's normal blood pressure. Patient states pain is 5/10 as long as she is keeping her head still. However, rotation of the cervical spine increases the pain to 9/10. She does report history of similar pain in the past. Moderate severity. CT of the neck reveals a fracture of C1 in 2 separate places and a fracture of the dens of C2. She is in a cervical collar on arrival to the ICU. She is awake and alert and conversant. - Diagnosis (1) C1 cervical fracture (2) C2 cervical fracture (3) Posterior displaced Type II dens fracture Inpatient Certification: I certify that the inpatient services were ordered in accordance with Medicare regulations governing the order. This includes certification that hospital inpatient services are reasonable and necessary and in the case of services not specified as inpatient-only under 42 CFR 419.22(n), that they are appropriately provided as inpatient services in accordance to with the 2-midnight benchmark under 43 CFR 412.3(e) Estimated Total Length of Stay (Days): 5 Plans for Post Hospital Care: Home Review of Systems No chest pain or shortness of breath. [facility] - History History Provided By: Patient - Medical History Medical History: Medical History (Last Reviewed 01/11/18 @ 08:37 by Ross Colunga) History of dementia History of high cholesterol Hx of irritable bowel syndrome - Surgical History Surgical History: Surgical History (Last Reviewed 01/11/18 @ 08:37 by Ross Colunga) History of renal stent Hx of fusion of cervical spine - Tobacco History Second Hand Smoke Exposure: No Tobacco Use In Past 30 Days: No Smoking Status: Former smoker - Alcohol History How Often Do You Have a Drink Containing Alcohol: 4 or more times a week - Substance Use History Substance History: No History of Abuse - Travel History Recent Travel in the [place] Within the Last 8 Weeks: No Recent Travel Out of the Country Within the Last 8 Weeks: No - Immunization History Tetanus Immunization: Unsure Medications and Allergies Active Medications: Active Medications Al Hydroxide/Mg Hydroxide (Milk Of Magnesia Liq) 30 ml PO Q12H PRN PRN Reason: Mild Constipation Albuterol (Duoneb Neb (Prn)) 1 ampul NEB Q2HR NEB PRN PRN Reason: WHEEZING Atorvastatin Calcium (Lipitor) 10 mg PO DAILY [facility] Last Admin: 01/11/18 08:05 Dose: 10 mg Bisacodyl (Dulcolax Supp) 10 mg RECTAL DAILY PRN PRN Reason: SEVERE CONSITIPATION Chlorhexidine Gluconate (Chlorhexidine 2% Cloth) 3 pack TOPICAL DAILY@0400 [facility] Stop: 01/16/18 03:59 Last Admin: 01/11/18 04:51 Dose: 3 pack Chlorhexidine Gluconate (Chlorhexidine 2% Cloth) 3 pack TOPICAL DAILY@0400 PRN PRN Reason: Extra cloth needed Stop: 01/16/18 03:59 Donepezil HCl (Aricept) 5 mg PO DAILY [facility] Last Admin: 01/11/18 08:05 Dose: 5 mg Sodium Chloride (Ns Inj) 1,000 mls @ 84 mls/hr IV.CONT .[id number] [facility] Last Admin: 01/11/18 05:19 Dose: 84 mls/hr Lactulose (Lactulose Liq) 30 ml PO DAILY PRN PRN Reason: SEVERE CONSITIPATION Memantine (Namenda) 5 mg PO BID [facility] Last Admin: 01/11/18 08:05 Dose: 5 mg Morphine Sulfate (Morphine Inj) 1 mg IV.PUSH Q2H PRN PRN Reason: PAIN SCALE 6 TO 10 Last Admin: 01/11/18 07:46 Dose: 1 mg Ondansetron HCl (Zofran Inj) 4 mg IV.PUSH Q6H PRN PRN Reason: NAUSEA OR VOMITING Senna/Docusate Sodium (Thersee-Colace) 1 tab PO BID [facility] Last Admin: 01/11/18 08:05 Dose: 1 tab Sennosides (Senokot) 17.2 mg PO Q12H PRN PRN Reason: Moderate Constipation Sodium Chloride (Ns Flush) 2 ml IV.FLUSH BID [facility] Last Admin: 01/10/18 22:43 Dose: 2 ml Sodium Chloride (Ns Flush) 2 ml IV.FLUSH PRN PRN PRN Reason: FLUSH AFTER USING IV ACCESS Allergies Allergy/AdvReac Type Severity Reaction Status Date / Time No Known Drug Allergies Allergy Unknown NONE Verified 01/10/18 18:16 Home Medications Medication Instructions Recorded Confirmed Type atorvastatin 10 mg PO DAILY 01/10/18 01/10/18 History donepezil [Aricept] 5 mg PO DAILY 01/10/18 01/10/18 History memantine [Namenda] 5 mg PO BID 01/10/18 01/10/18 History Results - Labs CBC & Chem 7: 01/10/18 16:40 01/11/18 04:34 Labs: Short CBC 01/10/18 Range/Units 16:40 WBC 11.0 (4.0-11.0) th/mm3 Hgb 13.8 (11.6-15.3) gm/dL Hct 40.4 (35.0-46.0) % Plt Count 224 (150-450) th/mm3 BMP 01/10/18 01/11/18 16:40 04:34 Sodium 139 142 Potassium 3.9 3.6 Chloride 107 109 H Carbon Dioxide 19.4 L 20.9 L BUN 18 16 Creatinine 1.30 H 0.83 Calcium 9.1 8.5 Liver Function 01/10/18 Range/Units 16:40 Total Bilirubin 0.7 (0.2-1.0) mg/dL AST 16 (15-37) U/L ALT 16 (10-53) U/L Alkaline Phosphatase 100 (45-117) U/L Albumin 3.5 (3.4-5.0) g/dL - Imaging Impressions Cervical Spine CT 01/10/18 13:45 CONCLUSION: 1. Fracture of the mid to upper waist of C2 with minimal anterior apex angulation. 2. Fractures involving the posterior lateral arches of C1 bilaterally. 3. Minimal anterolisthesis C2 on 3, C3 on 4 and C4 on 5. 4. There is anterior fusion C6-7. Head CT 01/10/18 13:45 CONCLUSION: 1. No acute intracranial abnormality. . Exam Vital signs: Vital Signs 01/10/18 12:26 01/10/18 16:32 01/10/18 18:41 Temperature 97.9 F Pulse Rate 84 71 72 Respiratory Rate 20 16 16 Blood Pressure 98/60 L 114/70 112/65 Pulse Oximetry 93 L 93 L 92 L 01/10/18 19:30 01/10/18 20:00 01/10/18 21:00 Temperature 98.5 F 98.5 F Pulse Rate 77 69 77 Respiratory Rate 20 22 Blood Pressure 137/76 156/76 H Pulse Oximetry 96 96 01/10/18 21:54 01/10/18 22:00 01/10/18 23:00 Temperature Pulse Rate 74 67 Respiratory Rate 21 Blood Pressure 147/83 H Pulse Oximetry 92 L 98 01/11/18 00:00 01/11/18 02:00 01/11/18 04:00 Temperature 98.5 F 98.9 F Pulse Rate 71 64 68 Respiratory Rate 18 25 H Blood Pressure 157/75 H 176/79 H 167/76 H Pulse Oximetry 96 96 96 01/11/18 06:00 Temperature Pulse Rate 63 Respiratory Rate 23 Blood Pressure 152/85 H Pulse Oximetry 96 Intake & Output 01/10/18 01/11/18 01/11/18 18:59 06:59 18:59 Intake Total 1000 / 1000 Balance 1000 / 1000 Weight 66.1 kg Intake: IV 1000 / 1000 NS Inj 1,000 ML @ 84 mls/hr IV. 1000 / 1000 CONT .[id number] [facility] Rx#: [id number] Narrative: Exam GENERAL: Frail, elderly female patient, afebrile. SKIN: Focused skin assessment warm/dry. HEAD: Normocephalic. Atraumatic. EYES: No scleral icterus. No injection or drainage. NECK: Supple, trachea midline. Airway widely patent, no obstructive noises. CARDIOVASCULAR: Regular rate and rhythm without murmurs, gallops, or rubs. No JVD. RESPIRATORY: Breath sounds equal bilaterally. No accessory muscle use. Lung sounds are clear to auscultation. GASTROINTESTINAL: Abdomen soft, non-tender, nondistended. No guarding. MUSCULOSKELETAL: No cyanosis, or edema. BACK: No obvious deformity. No CVA tenderness. Patient has tenderness to palpation over the midline cervical spine. Neuro: Oriented x3, alert, conversant. Speech is clear. Hand grasp is symmetrical and 5/5 bilaterally. Plantar flexion 5/5 both sides. Toes downgoing to stimulation. Deep tendon reflex right knee 3+ left knee 1+. Cranial nerves II through XII intact and symmetrical. Caprini VTE Risk Assessment Caprini VTE Risk Assessment: No/Low Risk (score <= 1) Caprini Risk Assessment Model: Point Value = 1 Point Value = 2 Point Value = 3 Point Value = 5 Age 41-60 Minor surgery BMI > 25 kg/m2 Swollen legs Varicose veins or History of unexplained or recurrent spontaneous Oral contraceptives or hormone replacement Sepsis (< 1 month) Serious lung disease, including pneumonia (< 1 month) Abnormal pulmonary function Acute myocardial infarction Congestive heart failure (< 1 month) History of inflammatory bowel disease Medical patient at bed rest Age 61-74 Arthroscopic surgery Major open surgery (> 45 min) Laparoscopic surgery (> 45 min) Malignancy Confined to bed (> 72 hours) Immobilizing plaster cast Central venous access Age >= 75 History of VTE Family history of VTE Factor V Leiden Prothrombin [id number] Lupus anticoagulant Anticardiolipin antibodies Elevated serum homocysteine Heparin-induced thrombocytopenia Other congenital or acquired thrombophilia Stroke (< 1 month) Elective arthroplasty Hip, pelvis, or leg fracture Acute spinal cord injury (< 1 month) Prophylaxis Regimen: Total Risk Factor Score Risk Level Prophylaxis Regimen 0-1 Low Early ambulation 2 Moderate Order ONE of the following: *Sequential Compression Device (SCD) *Heparin 5000 units SQ BID 3-4 Higher Order ONE of the following medications: *Heparin 5000 units SQ TID *Enoxaparin/Lovenox 40 mg SQ daily (WT < 150 kg, CrCl > 30 mL/min) *Enoxaparin/Lovenox 30 mg SQ daily (WT < 150 kg, CrCl > 10-29 mL/min) *Enoxaparin/Lovenox 30 mg SQ BID (WT < 150 kg, CrCl > 30 mL/min) AND/OR *Sequential Compression Device (SCD) 5 or more Highest Order ONE of the following medications: *Heparin 5000 units SQ TID (Preferred with Epidurals) *Enoxaparin/Lovenox 40 mg SQ daily (WT < 150 kg, CrCl > 30 mL/min) *Enoxaparin/Lovenox 30 mg SQ daily (WT < 150 kg, CrCl > 10-29 mL/min) *Enoxaparin/Lovenox 30 mg SQ BID (WT < 150 kg, CrCl > 30 mL/min) AND *Sequential Compression Device (SCD) Assessment and Plan - Problem List (1) C1 cervical fracture Code(s): S12.000A - Unspecified displaced fracture of first cervical vertebra, initial encounter for closed fracture Status: Acute (2) C2 cervical fracture Code(s): S12.100A - Unspecified displaced fracture of second cervical vertebra, initial encounter for closed fracture Status: Acute (3) Posterior displaced Type II dens fracture Code(s): S12.111A - Posterior displaced Type II dens fracture, initial encounter for closed fracture Status: Acute - Assessment and Plan Plan: Plan: 1. Supine position in bed, 10 degrees reverse Trendelenburg position. 2. Ice chips only. 3. SCDs for DVT prophylaxis. 4. Neuro checks. 5. Chemical DVT prophylaxis contraindicated until date of fracture better identified. 6. Pepcid for GI ulcer prophylaxis. 7. Airway precautions. Overall impression: This 77-year-old lady has an inherently unstable fracture involving C1 and C2. She will Be kept in a rigid collar until a formal form of stabilization is arranged. She is presently hemodynamically stable and her airway is widely patent without obstruction. She extensively has a pretty significant alcohol consumption history so we will watch for withdrawal symptomatology. (1) C1 cervical fracture Qualifiers: Encounter type: initial encounter Fracture type: closed Fracture morphology : unspecified fracture morphology Fracture alignment: displaced Qualified Code (s): S12.000A - Unspecified displaced fracture of first cervical vertebra, initial encounter for closed fracture (2) C2 cervical fracture Qualifiers: Encounter type: initial encounter Fracture type: closed Fracture morphology : unspecified fracture morphology Fracture alignment: nondisplaced Qualified Code(s): S12.101A - Unspecified nondisplaced fracture of second cervical vertebra, initial encounter for closed fracture (3) Posterior displaced Type II dens fracture Qualifiers: Encounter type: initial encounter Fracture type: closed
[2018-01-11] MEDS ORDERED: Midazolam Inj 5 MG/ML 1 ML Vial IV.PUSH ONE (10:45)
--- NOTE | 2018-01-11 12:53 | P.OP ---
- Preoperative Diagnosis (1) Posterior displaced Type II dens fracture (2) C1 cervical fracture Date of procedure: 01/18/18 Procedure: Closed reduction of the C2 type II odontoid fracture with manipulation; HALO placement Anesthesia: local Surgeon: Abdulaziz Gottlieb MD Operation and Findings: Informed consent was obtained from the patient and also discussed with the son at the bedside. Procedure undertaken at the bedside in the surgical intensive care unit with oxygen saturation and hemodynamic monitoring. Neck was maintained in a [place] J collar during the placement of the halo. After administration of intravenous Versed and morphine, bifrontal and occipital regions were then shaved and prepped with Betadine solution and infiltrated with 1% lidocaine with epinephrine solution avoiding the laceration sites. The halo ring was in place with 2 frontal and occipital pins tightened to 8 pounds of torque pressure. With manual traction the cervical C2 dens relative to the body alignment was restored with x-ray guidance and the halo vest was then also placed in the ring connectors of the vest with rods and locked in place at 30 pounds of pressure at each connection maintaining a neutral neck position. A final lateral cervical spine x-ray was obtained which confirmed maintained cervical spinal alignment. Patient tolerated the procedure well without any complications or blood loss.
--- NOTE | 2018-01-11 13:11 | XR ---
EXAM DATE: 01/11/2018 12:17 PM EDT AGE/SEX: 77 years / Female INDICATIONS: Halo placement. CLINICAL DATA: This is the patient's subsequent encounter. Patient reports that signs and symptoms h ave been present for 2 days and indicates a pain score of 0/10. MEDICAL/SURGICAL HISTORY: Hypercholesterolemia. Fusion, cervical. COMPARISON: [facility], CT CERVICAL SPINE W/O CONTRAST, 01/10/2018. . FINDINGS: A single crosstable lateral view of the cervical spine was obtained and again demonstrates the transv erse fracture through the dens. The fracture fragments are maintained in near-anatomic alignment with mild anterior displacement of the upper fragment anteriorly approximately 2 mm. There are nondisplac ed fractures through the posterior arch of C1. There is a mild stable grade 1 anterior spondylolisthe sis of C4 on C5 approximately 3 to 4 mm. CONCLUSION: Fractures and alignment as described. Electronically signed by: Macario Brown MD 01/11/2018 1:10 PM EDT
[2018-01-11] MEDS ORDERED: hydrALAZINE HCl Inj 20 MG/ML Vial IV.PUSH PRN (14:17)
[2018-01-11] MEDS ORDERED: Labetalol HCl Inj 100 MG/20 ML Vial IV.PUSH PRN (14:18)
--- NOTE | 2018-01-11 15:51 | P.PNNS ---
Subjective Interval history: Pt seen and examined this morning. She complains of neck pain. She denies any radiculopathy in UEs. She has paresthesias in the finger tips on the right hand. She states she discussed with her family and she wants to proceed with halo placement. Physical Exam Vital signs: Vital Signs 01/10/18 16:32 01/10/18 18:41 01/10/18 19:30 Temperature 98.5 F Pulse Rate 71 72 77 Respiratory Rate 16 16 20 Blood Pressure 114/70 112/65 137/76 Pulse Oximetry 93 L 92 L 96 01/10/18 20:00 01/10/18 21:00 01/10/18 21:54 Temperature 98.5 F Pulse Rate 69 77 Respiratory Rate 22 Blood Pressure 156/76 H Pulse Oximetry 96 92 L 01/10/18 22:00 01/10/18 23:00 01/11/18 00:00 Temperature 98.5 F Pulse Rate 74 67 71 Respiratory Rate 21 18 Blood Pressure 147/83 H 157/75 H Pulse Oximetry 98 96 01/11/18 02:00 01/11/18 03:57 01/11/18 04:00 Temperature 98.9 F Pulse Rate 64 70 68 Respiratory Rate 25 H 29 H 28 H Blood Pressure 176/79 H 167/76 H Pulse Oximetry 96 91 L 96 01/11/18 05:00 01/11/18 06:00 01/11/18 07:00 Temperature Pulse Rate 64 68 74 Respiratory Rate 37 H 35 H 33 H Blood Pressure 150/72 H 152/85 H 137/76 Pulse Oximetry 93 L 96 97 01/11/18 08:00 01/11/18 09:00 01/11/18 09:19 Temperature Pulse Rate 66 68 72 Respiratory Rate 29 H 35 H 27 H Blood Pressure 168/75 H 178/84 H 205/84 H Pulse Oximetry 91 L 93 L 96 01/11/18 09:23 01/11/18 09:24 01/11/18 09:33 Temperature Pulse Rate 70 66 69 Respiratory Rate 29 H 31 H 35 H Blood Pressure 190/84 H 180/79 H 165/65 H Pulse Oximetry 96 96 96 01/11/18 10:00 01/11/18 10:25 01/11/18 11:00 Temperature Pulse Rate 72 74 Respiratory Rate 31 H 27 H 24 Blood Pressure 178/78 H Pulse Oximetry 95 96 01/11/18 12:00 01/11/18 12:17 01/11/18 12:21 Temperature 98.2 F Pulse Rate 72 77 84 Respiratory Rate 20 25 H 18 Blood Pressure 165/70 H 150/81 H 129/59 L Pulse Oximetry 93 L 93 L 95 01/11/18 12:24 01/11/18 12:29 01/11/18 12:30 Temperature Pulse Rate 92 H 97 H 100 H Respiratory Rate 20 22 26 H Blood Pressure 132/61 140/63 132/62 Pulse Oximetry 95 94 L 95 01/11/18 12:45 01/11/18 13:00 01/11/18 13:15 Temperature Pulse Rate 92 H 87 82 Respiratory Rate 35 H 25 H 28 H Blood Pressure 128/61 129/60 143/55 H Pulse Oximetry 93 L 95 95 01/11/18 13:17 Temperature Pulse Rate Respiratory Rate Blood Pressure Pulse Oximetry 100 Intake & Output 01/10/18 01/11/18 01/11/18 18:59 06:59 18:59 Intake Total 1000 / 1000 1000 / 1000 Balance 1000 / 1000 1000 / 1000 Weight 66.1 kg Intake: IV 1000 / 1000 1000 / 1000 NS Inj 1,000 ML @ 84 mls/hr IV. 1000 / 1000 1000 / 1000 CONT .[id number] [facility] Rx#: [id number] - Constitutional mild distress (Related to pain from her C2 fracture.), cooperative - Routine HEENT Exam Eye: Present: PERRL. Absent: conjunctival icterus ENT: Present: oropharynx clear - Routine Neck Exam Present: trachea midline - Routine Respiratory Exam Present: CTA bilaterally. Absent: respiratory distress, rhonchi, wheezes - Routine Cardiovascular Exam Present: RRR, S1, S2. Absent: murmur - Routine Abdominal Exam Present: soft, normoactive bowel sounds. Absent: distended, firm - Routine Skin Exam Absent: cyanosis, erythema - Routine Neurological Exam Present: alert, moving all extremities, normal speech. Absent: sensory deficit , motor deficit - Routine Psychiatric Exam Present: normal affect, cooperative. Absent: agitated - Urinary Catheter Management Straight Cath placed during this visit: yes Reason for continuing: Not indwelling catheter Insertion date: 01/11/18 Insertion time: 05:28 Assessment and Plan - Assessment (1) C1 cervical fracture Code(s): S12.000A - Unspecified displaced fracture of first cervical vertebra, initial encounter for closed fracture Status: Acute Qualifiers: Encounter type: initial encounter Fracture type: closed Fracture morphology: unspecified fracture morphology Fracture alignment: displaced Qualified Code(s): S12.000A - Unspecified displaced fracture of first cervical vertebra, initial encounter for closed fracture (2) C2 cervical fracture Code(s): S12.100A - Unspecified displaced fracture of second cervical vertebra, initial encounter for closed fracture Status: Acute Qualifiers: Encounter type: initial encounter Fracture type: closed Fracture morphology: unspecified fracture morphology Fracture alignment: nondisplaced Qualified Code(s): S12.101A - Unspecified nondisplaced fracture of second cervical vertebra, initial encounter for closed fracture (3) Posterior displaced Type II dens fracture Code(s): S12.111A - Posterior displaced Type II dens fracture, initial encounter for closed fracture Status: Acute Qualifiers: Encounter type: initial encounter Fracture type: closed - Plan 77-year-old female with type II posteriorly angulated C2 odontoid fracture along with anterior and posterior C1 arch fractures. Remote history of anterior C6-7 fusion with plate placement. The odontoid fracture is an unstable injury and recommend a Halo placement to allow the best chance for healing of the C1-C2 fractures. P: Halo placement today Increase activity with PT after halo Continue with pain control. Continue to monitor for ETOH withdrawal symptoms.
[2018-01-11] MEDS ORDERED: Lidocaine 1%/Epinephrine 1:100,000 Inj 30 ML Vial ONE (17:46)
[2018-01-12] MEDS: Chlorhexidine Gluconate 2% 1 Pack (2 Cloths) TOPICAL SCH (07:04)
[2018-01-12] MEDS: Sod Chloride 0.9% Inj 1,000 ML IV.CONT SCH ×2 (07:05→17:28)
[2018-01-12] MEDS: Senna/Docusate Sodium 8.6/50 MG Tablet PO SCH ×2 (08:42→20:48)
[2018-01-12] MEDS: Pantoprazole Inj 40 MG Vial IV.PUSH SCH ×2 (11:47→20:47)
[2018-01-12] MEDS ORDERED: LORazepam 1 MG Tablet PO PRN (12:10)
[2018-01-12] MEDS ORDERED: Haloperidol Inj 5 MG/ML Ampul IV.PUSH PRN (12:10)
--- NOTE | 2018-01-12 12:31 | P.PNIM ---
Subjective Interval history: Patient episode of black emesis this morning along with black tarry stool. She does not report worsening abdominal pain she does have a chronic left upper abdominal pain which has been worked up previously in the past. She has had a previous EGD colonoscopy about 6 months ago which showed colitis. She states that she drinks 2-3 glasses of wine on a daily basis and possibly more when she goes out. She denies any dizziness. She is complaining of pain in her neck. Physical Exam Vital signs: Vital Signs 01/11/18 12:17 01/11/18 12:21 01/11/18 12:24 Temperature Pulse Rate 77 84 92 H Respiratory Rate 25 H 18 20 Blood Pressure 150/81 H 129/59 L 132/61 Pulse Oximetry 93 L 95 95 01/11/18 12:29 01/11/18 12:30 01/11/18 12:45 Temperature Pulse Rate 97 H 100 H 92 H Respiratory Rate 22 26 H 35 H Blood Pressure 140/63 132/62 128/61 Pulse Oximetry 94 L 95 93 L 01/11/18 13:00 01/11/18 13:15 01/11/18 13:17 Temperature Pulse Rate 87 82 Respiratory Rate 25 H 28 H Blood Pressure 129/60 143/55 H Pulse Oximetry 95 95 100 01/11/18 13:30 01/11/18 13:45 01/11/18 14:00 Temperature Pulse Rate 75 81 79 Respiratory Rate 32 H 26 H 31 H Blood Pressure 145/63 H 126/64 144/65 H Pulse Oximetry 96 92 L 95 01/11/18 14:15 01/11/18 14:30 01/11/18 14:45 Temperature Pulse Rate 87 78 80 Respiratory Rate 32 H 27 H 24 Blood Pressure 150/67 H 134/69 132/67 Pulse Oximetry 95 89 L 95 01/11/18 15:00 01/11/18 15:01 01/11/18 15:15 Temperature Pulse Rate 83 84 80 Respiratory Rate 30 H 24 23 Blood Pressure 131/63 140/70 139/71 Pulse Oximetry 96 95 95 01/11/18 15:30 01/11/18 15:45 01/11/18 16:00 Temperature Pulse Rate 81 78 80 Respiratory Rate 21 23 26 H Blood Pressure 148/79 H 144/76 H 143/73 H Pulse Oximetry 96 97 97 01/11/18 16:15 01/11/18 16:30 01/11/18 16:31 Temperature Pulse Rate 78 77 Respiratory Rate 29 H 29 H 19 Blood Pressure 146/77 H 145/80 H Pulse Oximetry 97 95 01/11/18 16:45 01/11/18 17:00 01/11/18 17:15 Temperature Pulse Rate 79 73 74 Respiratory Rate 24 36 H 23 Blood Pressure 160/72 H 135/63 164/71 H Pulse Oximetry 95 94 L 95 01/11/18 17:30 01/11/18 17:45 01/11/18 18:00 Temperature Pulse Rate 71 69 76 Respiratory Rate 23 29 H 32 H Blood Pressure 152/74 H 145/74 H 139/63 Pulse Oximetry 95 94 L 98 01/11/18 18:15 01/11/18 18:30 01/11/18 18:45 Temperature Pulse Rate 71 80 76 Respiratory Rate 25 H 32 H 30 H Blood Pressure 155/68 H 163/85 H 166/69 H Pulse Oximetry 96 98 97 01/11/18 20:00 01/11/18 22:00 01/11/18 23:31 Temperature 97.4 F L Pulse Rate 77 74 Respiratory Rate 34 H Blood Pressure 164/80 H Pulse Oximetry 99 96 01/12/18 00:00 01/12/18 00:57 01/12/18 02:00 Temperature 97.4 F L Pulse Rate 75 72 Respiratory Rate 17 21 Blood Pressure 167/81 H Pulse Oximetry 93 L 01/12/18 04:00 01/12/18 06:00 Temperature 97.4 F L Pulse Rate 72 75 Respiratory Rate 19 Blood Pressure 149/68 H Pulse Oximetry 98 Intake & Output 01/11/18 01/12/18 01/12/18 18:59 06:59 18:59 Intake Total 1000 / 1000 120 / 120 1000 / 1000 Output Total 400 / 400 400 / 400 Balance 600 / 600 -280 / -280 1000 / 1000 Weight 69.9 kg Intake: IV 1000 / 1000 1000 / 1000 NS Inj 1,000 ML @ 84 mls/hr IV. 1000 / 1000 1000 / 1000 CONT .[id number] LISA Rx#: [id number] Oral 120 / 120 Output: Urine 400 / 400 400 / 400 Stool 0 / 0 Other: # Incontinent Voids 3 Narrative: GENERAL: This is a well-nourished, well-developed patient, in no apparent distress. HEENT: halo in place CARDIOVASCULAR: Regular rate and rhythm RESPIRATORY: Clear to auscultation. Breath sounds equal bilaterally. No wheezes , rales, or rhonchi. GASTROINTESTINAL: Abdomen soft, non-tender, nondistended. Normal active bowel sounds MUSCULOSKELETAL: Extremities without clubbing, cyanosis, or edema. SCDs in place NEURO: Alert and oriented to person and place ; does move bilateral upper and lower extremities. - Urinary Catheter Management Straight Cath placed during this visit: yes Reason for continuing: Not indwelling catheter Insertion date: 01/11/18 Insertion time: 05:28 Results - Labs CBC & Chem 7: 01/10/18 16:40 01/11/18 04:34 - Imaging Impressions Cervical Spine X-Ray 01/11/18 12:17 CONCLUSION: Fractures and alignment as described. Assessment and Plan - Plan 77-year-old female with history of alcohol dependence with type II posteriorly angulated C2 odontoid fracture along with anterior and posterior C1 arch fractures. Remote history of anterior C6-7 fusion with plate placement. The odontoid fracture is an unstable injury a Halo placement surgical intervention was performed for healing and stabilization. 1. C1-C2 fracture status post operative day #1 Halo placementcontinue postoperative care, pain control, physical therapy, bowel regimen per neurosurgery Dr. Gottlieb 2. History of alcohol dependence with early signs of alcohol withdrawalson said patient was stating there is bugs flying in the room and flooding in the room although she has not expressed that to me during my exam. Initiate CIWA protocol. Thiamine and folate to be initiated 3. Episode of hematemesisdue to history of alcohol dependence will initiate PPI. Patient had a EGD colonoscopy about 6 months ago which showed colitis. Monitor hemoglobin. Supportive care at this time IV fluid hydration. Transfuse as needed. 4. Acute kidney injury superimposed on chronic kidney disease stage IIIV fluid hydration and improving. 5. Dementia, chronicresume home Aricept and Namenda 6. Hyperlipidemiaresume statin 7. DVT prophylaxisSCDs Transfer out of the intensive care unit. Discussed Condition With: Son at bedside Discharge Planning: Will need rehab placement
[2018-01-12 12:48] LABS: Hematocrit 34.8 % (35.0-46.0); Hemoglobin 11.5 gm/dL (11.6-15.3); Mean Corpuscular HGB Conc 33.1 % (32.0-36.0); Mean Corpuscular Hemoglobin 35.3 pg (27.0-34.0); Mean Corpuscular Volume 106.6 fL (80.0-100.0); Mean Platelet Volume 9.1 fL (7.0-11.0); Platelet Count 212 th/mm3 (150-450); Red Blood Count 3.27 mil/mm3 (4.00-5.30); White Blood Count 12.6 th/mm3 (4.0-11.0)
[2018-01-12 13:11] LABS: Calcium 9.3 mg/dL (8.5-10.1); Carbon Dioxide 20.9 meq/L (21.0-32.0); Potassium 3.9 meq/L (3.5-5.1)
--- NOTE | 2018-01-12 16:56 | P.PNNS ---
Subjective Interval history: Pt awake and alert. Complains of neck pain. No radiculopathy in UEs. Paresthesias in right finger tips stable. Pt states she has been oob and ambulated short distance. <Mark Costa - Last Filed: 01/12/18 16:51> Physical Exam Vital signs: Vital Signs 01/11/18 17:00 01/11/18 17:15 01/11/18 17:30 Temperature Pulse Rate 73 74 71 Respiratory Rate 36 H 23 23 Blood Pressure 135/63 164/71 H 152/74 H Pulse Oximetry 94 L 95 95 01/11/18 17:45 01/11/18 18:00 01/11/18 18:15 Temperature Pulse Rate 69 76 71 Respiratory Rate 29 H 32 H 25 H Blood Pressure 145/74 H 139/63 155/68 H Pulse Oximetry 94 L 98 96 01/11/18 18:30 01/11/18 18:45 01/11/18 20:00 Temperature 97.4 F L Pulse Rate 80 76 77 Respiratory Rate 32 H 30 H 34 H Blood Pressure 163/85 H 166/69 H 164/80 H Pulse Oximetry 98 97 99 01/11/18 22:00 01/11/18 23:31 01/12/18 00:00 Temperature 97.4 F L Pulse Rate 74 75 Respiratory Rate 17 Blood Pressure 167/81 H Pulse Oximetry 96 93 L 01/12/18 00:57 01/12/18 02:00 01/12/18 04:00 Temperature 97.4 F L Pulse Rate 72 72 Respiratory Rate 21 19 Blood Pressure 149/68 H Pulse Oximetry 98 01/12/18 06:00 01/12/18 08:00 01/12/18 12:00 Temperature 98.6 F 98.6 F Pulse Rate 75 76 82 Respiratory Rate 26 H 18 Blood Pressure 130/58 L 99/60 L Pulse Oximetry 94 L 94 L Intake & Output 01/11/18 01/12/18 01/12/18 18:59 06:59 18:59 Intake Total 1000 / 1000 120 / 120 1000 / 1000 Output Total 400 / 400 400 / 400 Balance 600 / 600 -280 / -280 1000 / 1000 Weight 69.9 kg Intake: IV 1000 / 1000 1000 / 1000 NS Inj 1,000 ML @ 84 mls/hr IV. 1000 / 1000 1000 / 1000 CONT .[id number] LISA Rx#: [id number] Oral 120 / 120 Output: Urine 400 / 400 400 / 400 Stool 0 / 0 Other: # Incontinent Voids 3 - Constitutional no acute distress - Routine HEENT Exam Head: Absent: atraumatic (Halo pin sites clean and dry.) Eye: Present: PERRL. Absent: conjunctival icterus ENT: Present: oropharynx clear - Routine Neck Exam Present: trachea midline. Absent: full ROM (Halo intact.) - Routine Respiratory Exam Present: CTA bilaterally. Absent: respiratory distress, rhonchi, wheezes - Routine Cardiovascular Exam Present: RRR, S1, S2, murmur (2/6 systolic ejection murmur.) - Routine Abdominal Exam Present: soft, normoactive bowel sounds. Absent: distended - Routine Skin Exam Absent: cyanosis, erythema Comments: Halo pin sites clean and dry. - Routine Neurological Exam Present: alert. Absent: sensory deficit (None other than subjective paresthesias in finger tips right hand.), motor deficit - Routine Psychiatric Exam Present: normal affect, cooperative. Absent: anxious, agitated - Urinary Catheter Management Straight Cath placed during this visit: yes Reason for continuing: Not indwelling catheter Insertion date: 01/11/18 Insertion time: 05:28 <Mark Costa - Last Filed: 01/12/18 16:51> Vital signs: Vital Signs 01/11/18 17:15 01/11/18 17:30 01/11/18 17:45 Temperature Pulse Rate 74 71 69 Respiratory Rate 23 23 29 H Blood Pressure 164/71 H 152/74 H 145/74 H Pulse Oximetry 95 95 94 L 01/11/18 18:00 01/11/18 18:15 01/11/18 18:30 Temperature Pulse Rate 76 71 80 Respiratory Rate 32 H 25 H 32 H Blood Pressure 139/63 155/68 H 163/85 H Pulse Oximetry 98 96 98 01/11/18 18:45 01/11/18 20:00 01/11/18 22:00 Temperature 97.4 F L Pulse Rate 76 77 74 Respiratory Rate 30 H 34 H Blood Pressure 166/69 H 164/80 H Pulse Oximetry 97 99 01/11/18 23:31 01/12/18 00:00 01/12/18 00:57 Temperature 97.4 F L Pulse Rate 75 Respiratory Rate 17 21 Blood Pressure 167/81 H Pulse Oximetry 96 93 L 01/12/18 02:00 01/12/18 04:00 01/12/18 06:00 Temperature 97.4 F L Pulse Rate 72 72 75 Respiratory Rate 19 Blood Pressure 149/68 H Pulse Oximetry 98 01/12/18 08:00 01/12/18 12:00 Temperature 98.6 F 98.6 F Pulse Rate 76 82 Respiratory Rate 26 H 18 Blood Pressure 130/58 L 99/60 L Pulse Oximetry 94 L 94 L Intake & Output 01/11/18 01/12/18 01/12/18 18:59 06:59 18:59 Intake Total 1000 / 1000 120 / 120 1000 / 1000 Output Total 400 / 400 400 / 400 Balance 600 / 600 -280 / -280 1000 / 1000 Weight 69.9 kg Intake: IV 1000 / 1000 1000 / 1000 NS Inj 1,000 ML @ 84 mls/hr IV. 1000 / 1000 1000 / 1000 CONT .[id number] LISA Rx#: [id number] Oral 120 / 120 Output: Urine 400 / 400 400 / 400 Stool 0 / 0 Other: # Incontinent Voids 3 - Urinary Catheter Management Straight Cath placed during this visit: no <BullAbdulaziz lou - Last Filed: 01/12/18 17:00> Assessment and Plan - Assessment (1) C1 cervical fracture Code(s): S12.000A - Unspecified displaced fracture of first cervical vertebra, initial encounter for closed fracture Status: Acute Qualifiers: Encounter type: initial encounter Fracture type: closed Fracture morphology: unspecified fracture morphology Fracture alignment: displaced Qualified Code(s): S12.000A - Unspecified displaced fracture of first cervical vertebra, initial encounter for closed fracture (2) C2 cervical fracture Code(s): S12.100A - Unspecified displaced fracture of second cervical vertebra, initial encounter for closed fracture Status: Acute Qualifiers: Encounter type: initial encounter Fracture type: closed Fracture morphology: unspecified fracture morphology Fracture alignment: nondisplaced Qualified Code(s): S12.101A - Unspecified nondisplaced fracture of second cervical vertebra, initial encounter for closed fracture (3) Posterior displaced Type II dens fracture Code(s): S12.111A - Posterior displaced Type II dens fracture, initial encounter for closed fracture Status: Acute Qualifiers: Encounter type: initial encounter Fracture type: closed - Plan 77-year-old female with type II posteriorly angulated C2 odontoid fracture along with anterior and posterior C1 arch fractures. Remote history of anterior C6-7 fusion with plate placement. The odontoid fracture is an unstable injury and recommend a Halo placement to allow the best chance for healing of the C1-C2 fractures. Pt s/p Halo placement on 01/11/18. P: Increase activity with PT after halo Continue with pain control. Transfer to floor. <Mark Costa - Last Filed: 01/12/18 16:51> - Assessment (1) Posterior displaced Type II dens fracture Code(s): S12.111A - Posterior displaced Type II dens fracture, initial encounter for closed fracture Status: Acute Qualifiers: Encounter type: initial encounter Fracture type: closed (2) C1 cervical fracture Code(s): S12.000A - Unspecified displaced fracture of first cervical vertebra, initial encounter for closed fracture Status: Acute Qualifiers: Encounter type: initial encounter Fracture type: closed Fracture morphology: unspecified fracture morphology Fracture alignment: displaced Qualified Code(s): S12.000A - Unspecified displaced fracture of first cervical vertebra, initial encounter for closed fracture - Attending Attestation The exam, history, and the medical decision-making described in the above note were completed with the assistance of the mid-level provider. I reviewed and agree with the findings presented. I attest that I had a [id number] encounter with the patient on the same day, and personally performed and documented my assessment and findings in the medical record. <Abdulaziz Gottlieb - Last Filed: 01/12/18 17:00>
[2018-01-13] MEDS: Sod Chloride 0.9% Inj 1,000 ML IV.CONT SCH (04:05)
[2018-01-13] MEDS: Chlorhexidine Gluconate 2% 1 Pack (2 Cloths) TOPICAL SCH (04:05)
[2018-01-13 07:05] LABS: Hematocrit 27.8 % (35.0-46.0); Hemoglobin 9.7 gm/dL (11.6-15.3); Mean Corpuscular HGB Conc 34.9 % (32.0-36.0); Mean Corpuscular Hemoglobin 36.3 pg (27.0-34.0); Mean Corpuscular Volume 103.9 fL (80.0-100.0); Mean Platelet Volume 9.1 fL (7.0-11.0); Platelet Count 171 th/mm3 (150-450); Red Blood Count 2.67 mil/mm3 (4.00-5.30); Red Cell Distribution Width 12.9 % (11.6-17.2); White Blood Count 9.4 th/mm3 (4.0-11.0)
--- NOTE | 2018-01-13 08:28 | P.PN ---
Subjective Interval history: Patient doing well. Reports emesis has resolved, denies bloody or tarry stools. Patient is tolerating p.o., and voiding well. Per nursing no overnight events. Patient pending availability of room for transfer to floor. Physical Exam Vital signs: Vital Signs 01/12/18 12:00 01/12/18 16:00 01/12/18 20:00 Temperature 98.6 F 98.6 F 97.8 F Pulse Rate 82 72 78 Respiratory Rate 18 17 19 Blood Pressure 99/60 L 140/72 137/68 Pulse Oximetry 94 L 96 99 01/12/18 21:40 01/13/18 00:00 01/13/18 04:00 Temperature 98.2 F 97.8 F Pulse Rate 66 64 Respiratory Rate 21 13 Blood Pressure 129/60 123/67 Pulse Oximetry 96 98 96 01/13/18 04:59 01/13/18 08:18 Temperature Pulse Rate Respiratory Rate 18 Blood Pressure Pulse Oximetry 95 Intake & Output 01/12/18 01/13/18 01/13/18 18:59 06:59 18:59 Intake Total 1000 / 1000 1240 / 1240 Balance 1000 / 1000 1240 / 1240 Weight 69.3 kg Intake: IV 1000 / 1000 1000 / 1000 NS Inj 1,000 ML @ 84 mls/hr IV. 1000 / 1000 1000 / 1000 CONT .[id number] LISA Rx#: [id number] Oral 240 / 240 Other: # Voids 5 2 Date of Last Bowel Movement 01/12/18 # Bowel Movements 3 Narrative: GENERAL: Well-nourished female, in NAD, lying comfortably in bed, nasal cannula in place SKIN: Warm and dry. HEAD: Normocephalic. Halo in place. EYES: No scleral icterus. No injection or drainage. NECK: Supple, trachea midline. No JVD or lymphadenopathy. CARDIOVASCULAR: Regular rate and rhythm without murmurs, gallops, or rubs. RESPIRATORY: Breath sounds equal bilaterally. No accessory muscle use. GASTROINTESTINAL: Abdomen soft, non-tender, nondistended. MUSCULOSKELETAL: No cyanosis, or edema. SCDs in place. Patient able to move all extremities. BACK: Nontender without obvious deformity. No CVA tenderness. - Urinary Catheter Management Straight Cath placed during this visit: yes Reason for continuing: Not indwelling catheter Insertion date: 01/11/18 Insertion time: 05:28 Results - Labs CBC & Chem 7: 01/13/18 06:21 01/12/18 12:22 Laboratory Results - last 24 hr 01/12/18 01/12/18 01/13/18 12:22 12:22 06:21 WBC 12.6 H 9.4 RBC 3.27 L 2.67 L Hgb 11.5 L D 9.7 L Hct 34.8 L 27.8 L MCV 106.6 H D 103.9 H MCH 35.3 H 36.3 H MCHC 33.1 34.9 RDW 13.0 12.9 Plt Count 212 171 MPV 9.1 9.1 Sodium 139 Potassium 3.9 Chloride 107 Carbon Dioxide 20.9 L Anion Gap 11 BUN 40 H Creatinine 0.70 Estimated GFR 81 L Random Glucose 129 H Calcium 9.3 D Assessment and Plan - Assessment (1) Dementia Code(s): F03.90 - Unspecified dementia without behavioral disturbance Status: Chronic (2) C1 cervical fracture Code(s): S12.000A - Unspecified displaced fracture of first cervical vertebra, initial encounter for closed fracture Status: Acute (3) C2 cervical fracture Code(s): S12.100A - Unspecified displaced fracture of second cervical vertebra, initial encounter for closed fracture Status: Acute (4) Posterior displaced Type II dens fracture Code(s): S12.111A - Posterior displaced Type II dens fracture, initial encounter for closed fracture Status: Acute (5) Hypertension Code(s): I10 - Essential (primary) hypertension Status: Chronic - Plan 77-year-old female with history of alcohol dependence with type II posteriorly angulated C2 odontoid fracture along with anterior and posterior C1 arch fractures. Remote history of anterior C6-7 fusion with plate placement. The odontoid fracture is an unstable injury a Halo placement surgical intervention was performed for healing and stabilization on 01/11, POD#2 1. Postop care Appreciate neurosurgery assistance with management s/p Halo placement on 01/11 Continue postoperative care, pain control, physical therapy, bowel regimen per neurosurgery Dr. Gottlieb 2. History of alcohol dependence No current signs of withdrawal Cont. CIWA protocol Cont. MV, Thiamine and folate 3. Hematemesis, now resolved Cont. PPI due to Hx of alcohol dependence Patient had a EGD colonoscopy about 6 months ago which showed colitis Transfuse as needed Will consult GI if symptoms recur or if hemoglobin continues to trend down 4. Anemia, macrocytic Likely due to chronic alcohol abuse Per patient chronic history of anemia, declines previous history of blood transfusion Hemoglobin 9.7 from 11.5 (admisson Hgb of 13.8 hemoconcentrated) Checking Hemoccult today Checking iron panel and B12 level See above 5. Acute kidney injury, resolved Creatinine 0.70 on 01/12 s/p IVF's 5. Dementia, chronic Cont. home Aricept and Namenda 6. Hyperlipidemia, chronic Cont. home statin 7. DVT prophylaxisSCD's 8. Disposition: Pending neurosurgery Reccs as well as PT recommendation, follow -up hemoglobin in a.m., if continues to trend down or if hematemesis recurs will consult GI Code Status: full Discussed Condition With: patient, RN (2) C1 cervical fracture Qualifiers: Encounter type: initial encounter Fracture type: closed Fracture morphology : unspecified fracture morphology Fracture alignment: displaced Qualified Code (s): S12.000A - Unspecified displaced fracture of first cervical vertebra, initial encounter for closed fracture (3) C2 cervical fracture Qualifiers: Encounter type: initial encounter Fracture type: closed Fracture morphology : unspecified fracture morphology Fracture alignment: nondisplaced Qualified Code(s): S12.101A - Unspecified nondisplaced fracture of second cervical vertebra, initial encounter for closed fracture (4) Posterior displaced Type II dens fracture Qualifiers: Encounter type: initial encounter Fracture type: closed
[2018-01-13] MEDS: Folic Acid 1 MG Tablet PO SCH (09:44)
[2018-01-13] MEDS: Senna/Docusate Sodium 8.6/50 MG Tablet PO SCH ×2 (09:44→20:27)
[2018-01-13] MEDS: Pantoprazole Inj 40 MG Vial IV.PUSH SCH ×2 (09:44→20:28)
--- NOTE | 2018-01-13 14:01 | P.PNNS ---
Subjective Interval history: Pt examined this morning. Pt is awake and alert. She complains of neck pain. No radiculopathy in UEs. She has paresthesias in finger tips on right hand. <JulissaMark - Last Filed: 01/13/18 13:56> Physical Exam Vital signs: Vital Signs 01/12/18 16:00 01/12/18 20:00 01/12/18 21:40 Temperature 98.6 F 97.8 F Pulse Rate 72 78 Respiratory Rate 17 19 Blood Pressure 140/72 137/68 Pulse Oximetry 96 99 96 01/13/18 00:00 01/13/18 04:00 01/13/18 04:59 Temperature 98.2 F 97.8 F Pulse Rate 66 64 Respiratory Rate 21 13 18 Blood Pressure 129/60 123/67 Pulse Oximetry 98 96 01/13/18 08:00 01/13/18 08:18 01/13/18 12:00 Temperature 98.9 F 98.1 F Pulse Rate 68 69 Respiratory Rate 20 17 Blood Pressure 167/67 H 122/57 L Pulse Oximetry 96 95 100 Intake & Output 01/12/18 01/13/18 01/13/18 18:59 06:59 18:59 Intake Total 1000 / 1000 1240 / 1240 350 / 350 Balance 1000 / 1000 1240 / 1240 350 / 350 Weight 69.3 kg Intake: IV 1000 / 1000 1000 / 1000 350 / 350 NS Inj 1,000 ML @ 84 mls/hr IV. 1000 / 1000 1000 / 1000 350 / 350 CONT .[id number] [facility] Rx#: [id number] Oral 240 / 240 Other: # Voids 5 2 Date of Last Bowel Movement 01/12/18 01/12/18 # Bowel Movements 3 - Constitutional no acute distress, average body habitus - Routine HEENT Exam Head: Absent: atraumatic (Halo pin sites clean and dry without signs of infection.) Eye: Present: PERRL. Absent: conjunctival icterus ENT: Present: oropharynx clear - Routine Neck Exam Absent: full ROM Comments: Halo intact and secure. - Routine Respiratory Exam Present: CTA bilaterally. Absent: patient mechanically ventilated, respiratory distress, rhonchi, wheezes - Routine Cardiovascular Exam Present: RRR, S1, S2. Absent: murmur - Routine Abdominal Exam Present: soft, normoactive bowel sounds. Absent: distended, firm - Routine Skin Exam Absent: cyanosis, erythema - Routine Neurological Exam Present: alert, moving all extremities, normal speech. Absent: sensory deficit (subjective numbness finger tips right hand.), motor deficit, facial asymmetry - Routine Psychiatric Exam Present: normal affect, cooperative. Absent: anxious, agitated - Urinary Catheter Management Straight Cath placed during this visit: yes Reason for continuing: Not indwelling catheter Insertion date: 01/11/18 Insertion time: 05:28 <Mark Costa - Last Filed: 01/13/18 13:56> Vital signs: Vital Signs 01/12/18 16:00 01/12/18 20:00 01/12/18 21:40 Temperature 98.6 F 97.8 F Pulse Rate 72 78 Respiratory Rate 17 19 Blood Pressure 140/72 137/68 Pulse Oximetry 96 99 96 01/13/18 00:00 01/13/18 04:00 01/13/18 04:59 Temperature 98.2 F 97.8 F Pulse Rate 66 64 Respiratory Rate 21 13 18 Blood Pressure 129/60 123/67 Pulse Oximetry 98 96 01/13/18 08:00 01/13/18 08:18 01/13/18 12:00 Temperature 98.9 F 98.1 F Pulse Rate 68 69 Respiratory Rate 20 17 Blood Pressure 167/67 H 122/57 L Pulse Oximetry 96 95 100 Intake & Output 01/12/18 01/13/18 01/13/18 18:59 06:59 18:59 Intake Total 1000 / 1000 1240 / 1240 350 / 350 Balance 1000 / 1000 1240 / 1240 350 / 350 Weight 69.3 kg Intake: IV 1000 / 1000 1000 / 1000 350 / 350 NS Inj 1,000 ML @ 84 mls/hr IV. 1000 / 1000 1000 / 1000 350 / 350 CONT .[id number] [facility] Rx#: [id number] Oral 240 / 240 Other: # Voids 5 2 Date of Last Bowel Movement 01/12/18 01/12/18 # Bowel Movements 3 - Urinary Catheter Management Straight Cath placed during this visit: no <Abdulaziz Gottlieb - Last Filed: 01/13/18 15:58> Assessment and Plan - Assessment (1) C1 cervical fracture Code(s): S12.000A - Unspecified displaced fracture of first cervical vertebra, initial encounter for closed fracture Status: Acute Qualifiers: Encounter type: initial encounter Fracture type: closed Fracture morphology: unspecified fracture morphology Fracture alignment: displaced Qualified Code(s): S12.000A - Unspecified displaced fracture of first cervical vertebra, initial encounter for closed fracture (2) C2 cervical fracture Code(s): S12.100A - Unspecified displaced fracture of second cervical vertebra, initial encounter for closed fracture Status: Acute Qualifiers: Encounter type: initial encounter Fracture type: closed Fracture morphology: unspecified fracture morphology Fracture alignment: nondisplaced Qualified Code(s): S12.101A - Unspecified nondisplaced fracture of second cervical vertebra, initial encounter for closed fracture (3) Posterior displaced Type II dens fracture Code(s): S12.111A - Posterior displaced Type II dens fracture, initial encounter for closed fracture Status: Acute Qualifiers: Encounter type: initial encounter Fracture type: closed - Plan 77-year-old female with type II posteriorly angulated C2 odontoid fracture along with anterior and posterior C1 arch fractures. Remote history of anterior C6-7 fusion with plate placement. The odontoid fracture is an unstable injury and recommend a Halo placement to allow the best chance for healing of the C1-C2 fractures. Pt s/p Halo placement on 01/11/18. P: Increase activity with PT Continue with pain control. Transfer to floor. Rehab placement. <Mark Costa - Last Filed: 01/13/18 13:56> - Assessment (1) Posterior displaced Type II dens fracture Code(s): S12.111A - Posterior displaced Type II dens fracture, initial encounter for closed fracture Status: Acute Qualifiers: Encounter type: initial encounter Fracture type: closed (2) C1 cervical fracture Code(s): S12.000A - Unspecified displaced fracture of first cervical vertebra, initial encounter for closed fracture Status: Acute Qualifiers: Encounter type: initial encounter Fracture type: closed Fracture morphology: unspecified fracture morphology Fracture alignment: displaced Qualified Code(s): S12.000A - Unspecified displaced fracture of first cervical vertebra, initial encounter for closed fracture - Attending Attestation The exam, history, and the medical decision-making described in the above note were completed with the assistance of the mid-level provider. I reviewed and agree with the findings presented. I attest that I had a [id number] encounter with the patient on the same day, and personally performed and documented my assessment and findings in the medical record. Stable for rehab placement from neurosurgical standpoint. Follow-up in office in 6 weeks with cervical spine x-rays. <Abdulaziz Gottlieb - Last Filed: 01/13/18 15:58>
[2018-01-13] MEDS: Morphine Sulfate Inj 2 MG/ML Vial IV.PUSH PRN ×3 (14:48→22:58)
[2018-01-13] MEDS ORDERED: Morphine Sulfate Inj 2 MG/ML Vial IV.PUSH ONE (16:30)
[2018-01-14] MEDS: Morphine Sulfate Inj 2 MG/ML Vial IV.PUSH PRN ×3 (01:57→08:19)
[2018-01-14] MEDS: Chlorhexidine Gluconate 2% 1 Pack (2 Cloths) TOPICAL SCH (04:30)
[2018-01-14 07:09] LABS: Baso # (Auto) 0.1 th/mm3 (0.0-0.2); Baso % (Auto) 0.8 % (0.0-2.0); Eos # (Auto) 0.2 th/mm3 (0.0-0.4); Eos % (Auto) 2.1 % (0.0-4.0); Hematocrit 26.2 % (35.0-46.0); Hemoglobin 9.2 gm/dL (11.6-15.3); Lymph % (Auto) 12.2 % (9.0-44.0); Mean Corpuscular HGB Conc 35.2 % (32.0-36.0); Mean Corpuscular Hemoglobin 36.1 pg (27.0-34.0); Mean Corpuscular Volume 102.5 fL (80.0-100.0); Mean Platelet Volume 9.1 fL (7.0-11.0); Mono # (Auto) 1.1 th/mm3 (0.0-0.9); Mono % (Auto) 12.9 % (0.0-8.0); Neut # (Auto) 5.9 th/mm3 (1.8-7.7); Platelet Count 181 th/mm3 (150-450); Red Blood Count 2.56 mil/mm3 (4.00-5.30); Red Cell Distribution Width 12.6 % (11.6-17.2); White Blood Count 8.2 th/mm3 (4.0-11.0)
[2018-01-14 07:48] LABS: Anion Gap 7 meq/L (5-15); Blood Urea Nitrogen 10 mg/dL (7-18); Calcium 8.7 mg/dL (8.5-10.1); Carbon Dioxide 27.5 meq/L (21.0-32.0); Chloride 104 meq/L (98-107); Glomerular Filtration Rate Greater Than 89 mL/min (>89); Glucose,Random 96 mg/dL (74-106); Iron 20 mcg/dL (50-170); Potassium 3.2 meq/L (3.5-5.1); Sodium 138 meq/L (136-145); Total Iron Binding Capacity 249 mcg/dL (250-450)
[2018-01-14 08:11] LABS: Vitamin B12 1278 pg/mL (193-986)
[2018-01-14] MEDS: Pantoprazole Inj 40 MG Vial IV.PUSH SCH ×2 (08:22→20:33)
[2018-01-14] MEDS: Folic Acid 1 MG Tablet PO SCH (08:23)
[2018-01-14] MEDS: Senna/Docusate Sodium 8.6/50 MG Tablet PO SCH ×2 (08:23→20:32)
[2018-01-14] MEDS ORDERED: Loratadine 10 MG Tablet PO ONE (10:52)
--- NOTE | 2018-01-14 10:52 | P.PNIM ---
Subjective Interval history: Complaints of shortness of breath and wheezing. Past history of smoking but no active known COPD or asthma. Physical Exam Vital signs: Vital Signs 01/13/18 12:00 01/13/18 16:00 01/13/18 20:00 Temperature 98.1 F 97.8 F 99.5 F Pulse Rate 69 70 78 Respiratory Rate 17 18 18 Blood Pressure 122/57 L 147/67 H 138/58 L Pulse Oximetry 100 97 97 01/13/18 21:22 01/14/18 00:00 01/14/18 04:00 Temperature 98.7 F 98.7 F Pulse Rate 73 74 Respiratory Rate 18 18 Blood Pressure 154/74 H 147/69 H Pulse Oximetry 96 94 L 93 L 01/14/18 08:00 Temperature 97.9 F Pulse Rate 72 Respiratory Rate 20 Blood Pressure 120/67 Pulse Oximetry 93 L Intake & Output 01/13/18 01/14/18 01/14/18 18:59 06:59 18:59 Intake Total 350 / 350 Balance 350 / 350 Weight 31.893 kg Intake: IV 350 / 350 NS Inj 1,000 ML @ 84 mls/hr IV. 350 / 350 CONT .[id number] [facility] Rx#: [id number] Other: # Voids 1 Date of Last Bowel Movement 01/12/18 01/13/18 Weight On Admission 31.893 kg Narrative: GENERAL: NAD, A&Ox3 HEAD: Normocephalic. NECK: Supple, trachea midline. No lymphadenopathy. EYES: No scleral icterus. No injection or drainage. CARDIOVASCULAR: Regular rate and rhythm without murmurs, gallops, or rubs. RESPIRATORY: Breath sounds equal bilaterally. No accessory muscle use. GASTROINTESTINAL: Abdomen soft, non-tender, nondistended. MUSCULOSKELETAL: No cyanosis, or edema. Neck/head halo in place. SKIN: Warm and dry. NEURO: No focal neurological deficits. - Urinary Catheter Management Straight Cath placed during this visit: yes Reason for continuing: Not indwelling catheter Insertion date: 01/11/18 Insertion time: 05:28 Results - Labs CBC & Chem 7: 01/14/18 06:38 01/14/18 06:38 Laboratory Results - last 24 hr 01/14/18 01/14/18 06:38 06:38 WBC 8.2 RBC 2.56 L Hgb 9.2 L Hct 26.2 L MCV 102.5 H MCH 36.1 H MCHC 35.2 RDW 12.6 Plt Count 181 MPV 9.1 Neut % (Auto) 72.0 H Lymph % (Auto) 12.2 [place] % (Auto) 12.9 H Eos % (Auto) 2.1 Baso % (Auto) 0.8 Neut # (Auto) 5.9 Lymph # (Auto) 1.0 [place] # (Auto) 1.1 H Eos # (Auto) 0.2 Baso # (Auto) 0.1 WBC Differential . Differential Comment Auto diff final Sodium 138 Potassium 3.2 L Chloride 104 Carbon Dioxide 27.5 Anion Gap 7 BUN 10 Creatinine 0.54 Estimated GFR Greater than 89 Random Glucose 96 Calcium 8.7 Iron 20 L TIBC 249 L % Saturation 8.0 L Vitamin B12 1278 H Assessment and Plan - Assessment (1) Dementia Code(s): F03.90 - Unspecified dementia without behavioral disturbance Status: Chronic (2) C1 cervical fracture Code(s): S12.000A - Unspecified displaced fracture of first cervical vertebra, initial encounter for closed fracture Status: Acute (3) C2 cervical fracture Code(s): S12.100A - Unspecified displaced fracture of second cervical vertebra, initial encounter for closed fracture Status: Acute (4) Posterior displaced Type II dens fracture Code(s): S12.111A - Posterior displaced Type II dens fracture, initial encounter for closed fracture Status: Acute (5) Hypertension Code(s): I10 - Essential (primary) hypertension Status: Chronic - Plan 77-year-old female status post surgical repair with halo placement for a C2 spine fracture. C2 spine fracture Neurosurgery following. s/p Halo placement on 01/11 Continue postoperative care Continue pain treatments History of alcohol dependence No current signs of withdrawal Cont. CIWA protocol Cont. MV, Thiamine and folate Hematemesis Resolved Monitor for any recurrence Follow CBC Anemia Iron deficiency anemia Start iron supplement Follow CBC Acute kidney injury Resolved Dementia Continue Aricept and Namenda Hyperlipidemia Continue present treatment Follow as an outpatient VT prophylaxis SCDs (2) C1 cervical fracture Qualifiers: Encounter type: initial encounter Fracture type: closed Fracture morphology : unspecified fracture morphology Fracture alignment: displaced Qualified Code (s): S12.000A - Unspecified displaced fracture of first cervical vertebra, initial encounter for closed fracture (3) C2 cervical fracture Qualifiers: Encounter type: initial encounter Fracture type: closed Fracture morphology : unspecified fracture morphology Fracture alignment: nondisplaced Qualified Code(s): S12.101A - Unspecified nondisplaced fracture of second cervical vertebra, initial encounter for closed fracture (4) Posterior displaced Type II dens fracture Qualifiers: Encounter type: initial encounter Fracture type: closed
[2018-01-14] MEDS: Ferrous Sulfate 325 MG Tablet PO SCH ×2 (11:29→16:57)
--- NOTE | 2018-01-14 11:31 | P.PNNS ---
Subjective Interval history: Pt awake and alert. Complains of neck pain when he is moving. No radiculopathy in UEs. She has paresthesias in finger tips but daughter at bedside states she has had that since her previous surgery on her neck. She is having some episodes of desaturation, encouraged incentive spirometry. Physical Exam Vital signs: Vital Signs 01/13/18 12:00 01/13/18 16:00 01/13/18 20:00 Temperature 98.1 F 97.8 F 99.5 F Pulse Rate 69 70 78 Respiratory Rate 17 18 18 Blood Pressure 122/57 L 147/67 H 138/58 L Pulse Oximetry 100 97 97 01/13/18 21:22 01/14/18 00:00 01/14/18 04:00 Temperature 98.7 F 98.7 F Pulse Rate 73 74 Respiratory Rate 18 18 Blood Pressure 154/74 H 147/69 H Pulse Oximetry 96 94 L 93 L 01/14/18 08:00 Temperature 97.9 F Pulse Rate 72 Respiratory Rate 20 Blood Pressure 120/67 Pulse Oximetry 93 L Intake & Output 01/13/18 01/14/18 01/14/18 18:59 06:59 18:59 Intake Total 350 / 350 Balance 350 / 350 Weight 31.893 kg Intake: IV 350 / 350 NS Inj 1,000 ML @ 84 mls/hr IV. 350 / 350 CONT .[id number] [facility] Rx#: [id number] Other: # Voids 1 Date of Last Bowel Movement 01/12/18 01/13/18 Weight On Admission 31.893 kg - Constitutional no acute distress, cooperative - Routine HEENT Exam Head: Absent: atraumatic (Halo pin sites clean and dry without signs of infection.) Eye: Present: PERRL. Absent: conjunctival icterus ENT: Present: oropharynx clear - Routine Neck Exam Absent: full ROM (Halo intact.) - Routine Respiratory Exam Present: CTA bilaterally (At apexes and far lateral bases.). Absent: rhonchi, wheezes - Routine Cardiovascular Exam Present: RRR, S1, S2. Absent: murmur - Routine Abdominal Exam Present: soft, normoactive bowel sounds. Absent: distended, firm - Routine Skin Exam Absent: cyanosis, erythema - Routine Neurological Exam Present: alert, moving all extremities. Absent: sensory deficit, motor deficit , normal speech - Routine Psychiatric Exam Present: normal affect, cooperative. Absent: anxious, agitated - Urinary Catheter Management Straight Cath placed during this visit: yes Reason for continuing: Not indwelling catheter Insertion date: 01/11/18 Insertion time: 05:28 Assessment and Plan - Assessment (1) C1 cervical fracture Code(s): S12.000A - Unspecified displaced fracture of first cervical vertebra, initial encounter for closed fracture Status: Acute Qualifiers: Encounter type: initial encounter Fracture type: closed Fracture morphology: unspecified fracture morphology Fracture alignment: displaced Qualified Code(s): S12.000A - Unspecified displaced fracture of first cervical vertebra, initial encounter for closed fracture (2) C2 cervical fracture Code(s): S12.100A - Unspecified displaced fracture of second cervical vertebra, initial encounter for closed fracture Status: Acute Qualifiers: Encounter type: initial encounter Fracture type: closed Fracture morphology: unspecified fracture morphology Fracture alignment: nondisplaced Qualified Code(s): S12.101A - Unspecified nondisplaced fracture of second cervical vertebra, initial encounter for closed fracture (3) Posterior displaced Type II dens fracture Code(s): S12.111A - Posterior displaced Type II dens fracture, initial encounter for closed fracture Status: Acute Qualifiers: Encounter type: initial encounter Fracture type: closed Qualified Code(s) : S12.111A - Posterior displaced Type II dens fracture, initial encounter for closed fracture - Plan 77-year-old female with type II posteriorly angulated C2 odontoid fracture along with anterior and posterior C1 arch fractures. Remote history of anterior C6-7 fusion with plate placement. The odontoid fracture is an unstable injury and recommend a Halo placement to allow the best chance for healing of the C1-C2 fractures. Pt s/p Halo placement on 01/11/18. P: Increase activity with PT Continue with pain control. She is complaining of neck pain that current medication is not holding. We will increase her hydrocodone to 7.5mg from 5. Try to use Morphine less. Encouraged incentive spirometry. Rehab placement when medically stable. Discussed with RN.
[2018-01-15] MEDS: Chlorhexidine Gluconate 2% 1 Pack (2 Cloths) TOPICAL SCH (04:00)
[2018-01-15 06:34] LABS: Baso # (Auto) 0.1 th/mm3 (0.0-0.2); Baso % (Auto) 0.7 % (0.0-2.0); Eos # (Auto) 0.2 th/mm3 (0.0-0.4); Eos % (Auto) 2.9 % (0.0-4.0); Hematocrit 27.7 % (35.0-46.0); Hemoglobin 9.5 gm/dL (11.6-15.3); Lymph # (Auto) 1.4 th/mm3 (1.0-4.8); Mean Corpuscular HGB Conc 34.4 % (32.0-36.0); Mean Corpuscular Hemoglobin 36.1 pg (27.0-34.0); Mean Corpuscular Volume 104.9 fL (80.0-100.0); Mean Platelet Volume 8.8 fL (7.0-11.0); Neut # (Auto) 4.4 th/mm3 (1.8-7.7); Neut % (Auto) 62.4 % (16.0-70.0); Platelet Count 203 th/mm3 (150-450); Red Blood Count 2.64 mil/mm3 (4.00-5.30); White Blood Count 7.1 th/mm3 (4.0-11.0)
[2018-01-15 06:46] LABS: Albumin 2.5 g/dL (3.4-5.0); Anion Gap 9 meq/L (5-15); Aspartate Aminotransferase 17 U/L (15-37); Blood Urea Nitrogen 9 mg/dL (7-18); Calcium 8.5 mg/dL (8.5-10.1); Carbon Dioxide 27.2 meq/L (21.0-32.0); Chloride 103 meq/L (98-107); Glomerular Filtration Rate Greater Than 89 mL/min (>89); Glucose,Random 80 mg/dL (74-106); Sodium 139 meq/L (136-145)
[2018-01-15 06:48] LABS: Alanine Aminotransferase 12 U/L (10-53)
[2018-01-15 06:50] LABS: Alkaline Phosphatase 68 U/L (45-117); Total Protein 6.4 g/dL (6.4-8.2)
[2018-01-15] MEDS: Pantoprazole Inj 40 MG Vial IV.PUSH SCH ×2 (08:39→21:59)
[2018-01-15] MEDS: Senna/Docusate Sodium 8.6/50 MG Tablet PO SCH ×2 (08:39→21:59)
[2018-01-15] MEDS: Folic Acid 1 MG Tablet PO SCH (08:39)
[2018-01-15] MEDS: Loratadine 10 MG Tablet PO SCH (08:39)
--- NOTE | 2018-01-15 10:27 | P.PNIM ---
Subjective Interval history: Potassium level low this morning. No new complaints from patient. Possible inpatient rehab placement, approval pending. Physical Exam Vital signs: Vital Signs 01/14/18 12:00 01/14/18 16:00 01/14/18 16:04 Temperature 98.7 F 97.4 F L Pulse Rate 69 48 L Respiratory Rate 18 18 Blood Pressure 141/63 H 128/62 Pulse Oximetry 94 L 93 L 94 L 01/14/18 20:00 01/15/18 00:00 01/15/18 04:00 Temperature 98.3 F 97.6 F 97.8 F Pulse Rate 68 60 63 Respiratory Rate 18 18 18 Blood Pressure 128/62 158/70 H 148/70 H Pulse Oximetry 95 94 L 94 L 01/15/18 07:52 01/15/18 08:00 01/15/18 10:05 Temperature 98.0 F Pulse Rate 73 Respiratory Rate 16 18 16 Blood Pressure 106/58 L Pulse Oximetry 93 L Intake & Output 01/14/18 01/15/18 01/15/18 18:59 06:59 18:59 Intake Total 400 / 400 Output Total 600 / 600 Balance -200 / -200 Weight 70.7 kg Intake: Oral 400 / 400 Output: Urine 600 / 600 Other: # Voids 2 Date of Last Bowel Movement 01/13/18 01/13/18 01/13/18 Narrative: GENERAL: NAD, A&Ox3 HEAD: Normocephalic. NECK: Supple, trachea midline. No lymphadenopathy. EYES: No scleral icterus. No injection or drainage. CARDIOVASCULAR: Regular rate and rhythm without murmurs, gallops, or rubs. RESPIRATORY: Breath sounds equal bilaterally. No accessory muscle use. GASTROINTESTINAL: Abdomen soft, non-tender, nondistended. MUSCULOSKELETAL: No cyanosis, or edema. Neck/head halo in place. SKIN: Warm and dry. NEURO: No focal neurological deficits. - Urinary Catheter Management Straight Cath placed during this visit: yes Reason for continuing: Not indwelling catheter Insertion date: 01/11/18 Insertion time: 05:28 Results - Labs CBC & Chem 7: 01/15/18 04:46 01/15/18 04:46 Laboratory Results - last 24 hr 01/15/18 01/15/18 04:46 04:46 WBC 7.1 RBC 2.64 L Hgb 9.5 L Hct 27.7 L MCV 104.9 H MCH 36.1 H MCHC 34.4 RDW 13.0 Plt Count 203 MPV 8.8 Neut % (Auto) 62.4 Lymph % (Auto) 20.0 [place] % (Auto) 14.0 H Eos % (Auto) 2.9 Baso % (Auto) 0.7 Neut # (Auto) 4.4 Lymph # (Auto) 1.4 [place] # (Auto) 1.0 H Eos # (Auto) 0.2 Baso # (Auto) 0.1 WBC Differential . Differential Comment Auto diff final Sodium 139 Potassium 3.0 L Chloride 103 Carbon Dioxide 27.2 Anion Gap 9 BUN 9 Creatinine 0.56 Estimated GFR Greater than 89 Random Glucose 80 Calcium 8.5 Total Bilirubin 0.3 AST 17 ALT 12 Alkaline Phosphatase 68 Total Protein 6.4 D Albumin 2.5 L Assessment and Plan - Assessment (1) Dementia Code(s): F03.90 - Unspecified dementia without behavioral disturbance Status: Chronic (2) C1 cervical fracture Code(s): S12.000A - Unspecified displaced fracture of first cervical vertebra, initial encounter for closed fracture Status: Acute (3) C2 cervical fracture Code(s): S12.100A - Unspecified displaced fracture of second cervical vertebra, initial encounter for closed fracture Status: Acute (4) Posterior displaced Type II dens fracture Code(s): S12.111A - Posterior displaced Type II dens fracture, initial encounter for closed fracture Status: Acute (5) Hypertension Code(s): I10 - Essential (primary) hypertension Status: Chronic - Plan 77-year-old female status post surgical repair with halo placement for a C2 spine fracture. Continue to replace potassium. Chronic hypokalemia is a problem in the past. Chronic supplementation resumed. Continue to monitor potassium levels. Approval in regards to placement pending. C2 spine fracture Neurosurgery following. s/p Halo placement on 01/11 Continue postoperative care Continue pain treatments History of alcohol dependence No current signs of withdrawal Cont. CIWA protocol Cont. MV, Thiamine and folate Hematemesis Resolved Monitor for any recurrence Follow CBC Anemia Iron deficiency anemia Start iron supplement Follow CBC Acute kidney injury Resolved Dementia Continue Aricept and Namenda Hyperlipidemia Continue present treatment Follow as an outpatient VT prophylaxis SCDs (2) C1 cervical fracture Qualifiers: Encounter type: initial encounter Fracture type: closed Fracture morphology : unspecified fracture morphology Fracture alignment: displaced Qualified Code (s): S12.000A - Unspecified displaced fracture of first cervical vertebra, initial encounter for closed fracture (3) C2 cervical fracture Qualifiers: Encounter type: initial encounter Fracture type: closed Fracture morphology : unspecified fracture morphology Fracture alignment: nondisplaced Qualified Code(s): S12.101A - Unspecified nondisplaced fracture of second cervical vertebra, initial encounter for closed fracture (4) Posterior displaced Type II dens fracture Qualifiers: Encounter type: initial encounter Fracture type: closed Qualified Code(s): S12.111A - Posterior displaced Type II dens fracture, initial encounter for closed fracture
[2018-01-15] MEDS: Ferrous Sulfate 325 MG Tablet PO SCH ×2 (11:33→16:00)
[2018-01-15] MEDS: Morphine Sulfate Inj 2 MG/ML Vial IV.PUSH PRN ×3 (13:03→21:57)
[2018-01-16] MEDS: Morphine Sulfate Inj 2 MG/ML Vial IV.PUSH PRN (03:08)
[2018-01-16 08:02] LABS: Albumin 2.8 g/dL (3.4-5.0); Anion Gap 8 meq/L (5-15); Aspartate Aminotransferase 18 U/L (15-37); Blood Urea Nitrogen 9 mg/dL (7-18); Carbon Dioxide 29.3 meq/L (21.0-32.0); Chloride 102 meq/L (98-107); Glomerular Filtration Rate 88 mL/min (>89); Glucose,Random 87 mg/dL (74-106); Potassium 3.7 meq/L (3.5-5.1); Sodium 139 meq/L (136-145)
[2018-01-16 08:07] LABS: Alanine Aminotransferase 16 U/L (10-53); Alkaline Phosphatase 76 U/L (45-117)
[2018-01-16] MEDS: Folic Acid 1 MG Tablet PO SCH (10:28)
[2018-01-16] MEDS: Senna/Docusate Sodium 8.6/50 MG Tablet PO SCH ×2 (10:28→23:30)
[2018-01-16] MEDS: Loratadine 10 MG Tablet PO SCH (10:29)
[2018-01-16] MEDS: Pantoprazole Inj 40 MG Vial IV.PUSH SCH ×2 (10:30→23:29)
[2018-01-16] MEDS ORDERED: Sod Phosphate/Sod Biphosphate (Adult) Enema 133 ML Bottle RECTAL ONE (12:00)
[2018-01-16] MEDS: Ferrous Sulfate 325 MG Tablet PO SCH ×2 (12:20→17:10)
--- NOTE | 2018-01-16 14:15 | P.PNIM ---
Subjective Interval history: Constipation reported this morning. When I see this patient she said she has subsequently had bowel movements. No other complaints. Physical Exam Vital signs: Vital Signs 01/15/18 16:00 01/15/18 17:45 01/15/18 18:10 Temperature 98 F Pulse Rate 64 70 Respiratory Rate 18 Blood Pressure 107/53 L Pulse Oximetry 93 L 93 L 01/15/18 19:19 01/15/18 19:28 01/15/18 20:00 Temperature 98.2 F Pulse Rate 69 Respiratory Rate 16 16 18 Blood Pressure 105/54 L Pulse Oximetry 94 L 01/16/18 00:00 01/16/18 04:00 01/16/18 08:00 Temperature 98.0 F 98.3 F 98.3 F Pulse Rate 74 67 69 Respiratory Rate 18 18 18 Blood Pressure 171/75 H 177/79 H 172/77 H Pulse Oximetry 94 L 94 L 92 L 01/16/18 12:00 Temperature 98.4 F Pulse Rate 70 Respiratory Rate 18 Blood Pressure 107/57 L Pulse Oximetry 92 L Intake & Output 01/15/18 01/16/18 01/16/18 18:59 06:59 18:59 Intake Total 600 / 600 Balance 600 / 600 Weight 71.5 kg Intake: Oral 600 / 600 Other: # Voids 3 1 2 Date of Last Bowel Movement 01/13/18 # Bowel Movements 2 Narrative: GENERAL: NAD, A&Ox3 HEAD: Normocephalic. NECK: Supple, trachea midline. No lymphadenopathy. EYES: No scleral icterus. No injection or drainage. CARDIOVASCULAR: Regular rate and rhythm without murmurs, gallops, or rubs. RESPIRATORY: Breath sounds equal bilaterally. No accessory muscle use. GASTROINTESTINAL: Abdomen soft, non-tender, nondistended. MUSCULOSKELETAL: No cyanosis, or edema. Neck/head halo in place. SKIN: Warm and dry. NEURO: No focal neurological deficits. - Urinary Catheter Management Straight Cath placed during this visit: yes Reason for continuing: Not indwelling catheter Insertion date: 01/11/18 Insertion time: 05:28 Results - Labs CBC & Chem 7: 01/15/18 04:46 01/16/18 06:22 Laboratory Results - last 24 hr 01/16/18 06:22 Sodium 139 Potassium 3.7 Chloride 102 Carbon Dioxide 29.3 Anion Gap 8 BUN 9 Creatinine 0.65 Estimated GFR 88 L Random Glucose 87 Calcium 9.0 Total Bilirubin 0.3 AST 18 ALT 16 Alkaline Phosphatase 76 Total Protein 7.0 D Albumin 2.8 L Assessment and Plan - Assessment (1) Dementia Code(s): F03.90 - Unspecified dementia without behavioral disturbance Status: Chronic (2) C1 cervical fracture Code(s): S12.000A - Unspecified displaced fracture of first cervical vertebra, initial encounter for closed fracture Status: Acute (3) C2 cervical fracture Code(s): S12.100A - Unspecified displaced fracture of second cervical vertebra, initial encounter for closed fracture Status: Acute (4) Posterior displaced Type II dens fracture Code(s): S12.111A - Posterior displaced Type II dens fracture, initial encounter for closed fracture Status: Acute (5) Hypertension Code(s): I10 - Essential (primary) hypertension Status: Chronic - Plan 77-year-old female status post surgical repair with halo placement for a C2 spine fracture. Continue monitoring potassium levels. Continue monitoring bowel movements. Awaiting approval for placement for rehab. C2 spine fracture Neurosurgery following. s/p Halo placement on 01/11 Continue postoperative care Continue pain treatments History of alcohol dependence No current signs of withdrawal Cont. CIWA protocol Cont. MV, Thiamine and folate Hematemesis Resolved Monitor for any recurrence Follow CBC Anemia Iron deficiency anemia Start iron supplement Follow CBC Acute kidney injury Resolved Dementia Continue Aricept and Namenda Hyperlipidemia Continue present treatment Follow as an outpatient VT prophylaxis SCDs (2) C1 cervical fracture Qualifiers: Encounter type: initial encounter Fracture type: closed Fracture morphology : unspecified fracture morphology Fracture alignment: displaced Qualified Code (s): S12.000A - Unspecified displaced fracture of first cervical vertebra, initial encounter for closed fracture (3) C2 cervical fracture Qualifiers: Encounter type: initial encounter Fracture type: closed Fracture morphology : unspecified fracture morphology Fracture alignment: nondisplaced Qualified Code(s): S12.101A - Unspecified nondisplaced fracture of second cervical vertebra, initial encounter for closed fracture (4) Posterior displaced Type II dens fracture Qualifiers: Encounter type: initial encounter Fracture type: closed Qualified Code(s): S12.111A - Posterior displaced Type II dens fracture, initial encounter for closed fracture
[2018-01-17] MEDS: Senna/Docusate Sodium 8.6/50 MG Tablet PO SCH ×2 (08:42→22:18)
[2018-01-17] MEDS: Pantoprazole Inj 40 MG Vial IV.PUSH SCH ×2 (08:42→22:16)
[2018-01-17] MEDS: Folic Acid 1 MG Tablet PO SCH (08:42)
[2018-01-17] MEDS: Loratadine 10 MG Tablet PO SCH (08:42)
[2018-01-17] MEDS: Ferrous Sulfate 325 MG Tablet PO SCH ×2 (12:17→18:03)
--- NOTE | 2018-01-17 12:49 | P.PNIM ---
Subjective Interval history: The patient was sitting up in a chair. She said her pain was controlled with pain medication. Her family was at the bedside. Their questions were answered. The patient worked with physical therapy today and has been ambulating. Physical Exam Vital signs: Vital Signs 01/16/18 16:00 01/16/18 20:00 01/16/18 20:28 Temperature 99.2 F 98.6 F Pulse Rate 75 69 Respiratory Rate 18 18 Blood Pressure 147/68 H 112/66 Pulse Oximetry 92 L 96 94 L 01/17/18 00:00 01/17/18 04:00 01/17/18 08:00 Temperature 98.6 F 98.7 F 97.3 F L Pulse Rate 75 71 67 Respiratory Rate 18 18 18 Blood Pressure 111/69 113/70 158/72 H Pulse Oximetry 95 97 92 L 01/17/18 10:44 Temperature Pulse Rate Respiratory Rate Blood Pressure Pulse Oximetry 93 L Intake & Output 01/16/18 01/17/18 01/17/18 18:59 06:59 18:59 Intake Total 600 / 600 Output Total 600 / 600 Balance 0 / 0 Weight 70.6 kg Intake: Oral 600 / 600 Output: Urine 600 / 600 Stool 0 / 0 Other: # Voids 2 0 # Incontinent Voids 3 Date of Last Bowel Movement 01/13/18 01/16/18 01/17/18 # Bowel Movements 1 Narrative: GENERAL: NAD. HEAD: Halo in place. NECK: Supple, trachea midline. No lymphadenopathy. EYES: No scleral icterus. No injection or drainage. CARDIOVASCULAR: Regular rate and rhythm without murmurs, gallops, or rubs. RESPIRATORY: Breath sounds equal bilaterally. No accessory muscle use. GASTROINTESTINAL: Abdomen soft, non-tender, nondistended. MUSCULOSKELETAL: No cyanosis, or edema. SKIN: Warm and dry. NEURO: No focal neurological deficits. - Urinary Catheter Management Straight Cath placed during this visit: yes Reason for continuing: Not indwelling catheter Insertion date: 01/11/18 Insertion time: 05:28 Results - Labs CBC & Chem 7: 01/15/18 04:46 01/16/18 06:22 Microbiology 01/16/18 11:10 Stool Stool Occult Blood (RJ) - Final Hemoccult positive Assessment and Plan - Assessment (1) Dementia Code(s): F03.90 - Unspecified dementia without behavioral disturbance Status: Chronic (2) C1 cervical fracture Code(s): S12.000A - Unspecified displaced fracture of first cervical vertebra, initial encounter for closed fracture Status: Acute (3) C2 cervical fracture Code(s): S12.100A - Unspecified displaced fracture of second cervical vertebra, initial encounter for closed fracture Status: Acute (4) Posterior displaced Type II dens fracture Code(s): S12.111A - Posterior displaced Type II dens fracture, initial encounter for closed fracture Status: Acute (5) Hypertension Code(s): I10 - Essential (primary) hypertension Status: Chronic - Plan 77-year-old female status post surgical repair with halo placement for a C2 spine fracture. C2 spine fracture Neurosurgery following. S/p Halo placement on 01/11 -Continue postoperative care -Continue pain treatments History of alcohol dependence No current signs of withdrawal S/p CIWA protocol -Cont. MV, Thiamine and folate Hematemesis/ Iron deficiency anemia Resolved Monitor for any recurrence -Follow CBC -iron supplement. Acute kidney injury Resolved. -avoid nephrotoxins. Dementia Stable. -Continue Aricept and Namenda Malnutrition, moderate Albumin 2.8. -add Ensure. VT prophylaxis SCDs Discharge Planning: Awaiting placement (2) C1 cervical fracture Qualifiers: Encounter type: initial encounter Fracture type: closed Fracture morphology : unspecified fracture morphology Fracture alignment: displaced Qualified Code (s): S12.000A - Unspecified displaced fracture of first cervical vertebra, initial encounter for closed fracture (3) C2 cervical fracture Qualifiers: Encounter type: initial encounter Fracture type: closed Fracture morphology : unspecified fracture morphology Fracture alignment: nondisplaced Qualified Code(s): S12.101A - Unspecified nondisplaced fracture of second cervical vertebra, initial encounter for closed fracture (4) Posterior displaced Type II dens fracture Qualifiers: Encounter type: initial encounter Fracture type: closed Qualified Code(s): S12.111A - Posterior displaced Type II dens fracture, initial encounter for closed fracture
[2018-01-18] MEDS: Folic Acid 1 MG Tablet PO SCH (08:35)
[2018-01-18] MEDS: Loratadine 10 MG Tablet PO SCH (08:35)
[2018-01-18] MEDS: Senna/Docusate Sodium 8.6/50 MG Tablet PO SCH ×2 (08:36→20:05)
[2018-01-18] MEDS: Pantoprazole Inj 40 MG Vial IV.PUSH SCH ×2 (08:37→20:07)
[2018-01-18] MEDS: Ferrous Sulfate 325 MG Tablet PO SCH ×2 (13:58→17:42)
--- NOTE | 2018-01-18 14:44 | P.PNIM ---
Subjective Interval history: The pt was complaining of pain and requested and extra pain pill. She was working with therapy. No other acute complaints. Physical Exam Vital signs: Vital Signs 01/17/18 16:00 01/17/18 20:00 01/17/18 21:14 Temperature 97.9 F 97.8 F Pulse Rate 65 68 Respiratory Rate 18 18 Blood Pressure 90/51 L 90/54 L Pulse Oximetry 94 L 97 94 L 01/18/18 00:00 01/18/18 04:00 01/18/18 08:00 Temperature 97.9 F 98.2 F 97.8 F Pulse Rate 57 L 67 60 Respiratory Rate 16 20 20 Blood Pressure 142/70 H 149/67 H 145/62 H Pulse Oximetry 97 92 L 91 L 01/18/18 11:45 01/18/18 12:00 01/18/18 13:56 Temperature 98.2 F Pulse Rate 107 H Respiratory Rate 20 18 Blood Pressure 131/60 Pulse Oximetry 95 90 L Intake & Output 01/17/18 01/18/18 01/18/18 18:59 06:59 18:59 Intake Total 960 / 960 Balance 960 / 960 Intake: Oral 960 / 960 Other: # Voids 2 2 Date of Last Bowel Movement 01/17/18 01/17/18 01/17/18 # Bowel Movements 1 1 Narrative: GENERAL: NAD. HEAD: Halo in place. NECK: Supple, trachea midline. No lymphadenopathy. EYES: No scleral icterus. No injection or drainage. CARDIOVASCULAR: Regular rate and rhythm without murmurs, gallops, or rubs. RESPIRATORY: Breath sounds equal bilaterally. No accessory muscle use. GASTROINTESTINAL: Abdomen soft, non-tender, nondistended. MUSCULOSKELETAL: No cyanosis, or edema. SKIN: Warm and dry. NEURO: No focal neurological deficits. - Urinary Catheter Management Straight Cath placed during this visit: yes Reason for continuing: Not indwelling catheter Insertion date: 01/11/18 Insertion time: 05:28 Results - Labs CBC & Chem 7: 01/15/18 04:46 01/16/18 06:22 Assessment and Plan - Assessment (1) Dementia Code(s): F03.90 - Unspecified dementia without behavioral disturbance Status: Chronic (2) C1 cervical fracture Code(s): S12.000A - Unspecified displaced fracture of first cervical vertebra, initial encounter for closed fracture Status: Acute (3) C2 cervical fracture Code(s): S12.100A - Unspecified displaced fracture of second cervical vertebra, initial encounter for closed fracture Status: Acute (4) Posterior displaced Type II dens fracture Code(s): S12.111A - Posterior displaced Type II dens fracture, initial encounter for closed fracture Status: Acute (5) Hypertension Code(s): I10 - Essential (primary) hypertension Status: Chronic - Plan 77-year-old female status post surgical repair with halo placement for a C2 spine fracture. C2 spine fracture Neurosurgery following. S/p Halo placement on 01/11 -Continue postoperative care -Continue pain treatments. Adjust regimen as needed. History of alcohol dependence No current signs of withdrawal S/p CIWA protocol -Cont. MV, Thiamine and folate. -cessation instruction. Hematemesis/ Iron deficiency anemia Resolved Monitor for any recurrence -Follow CBC as needed. -iron supplement. Acute kidney injury Resolved. -avoid nephrotoxins. Dementia Stable. -Continue Aricept and Namenda Malnutrition, moderate Albumin 2.8. -added Ensure. VT prophylaxis SCDs Discharge Planning: Awaiting placement (2) C1 cervical fracture Qualifiers: Encounter type: initial encounter Fracture type: closed Fracture morphology : unspecified fracture morphology Fracture alignment: displaced Qualified Code (s): S12.000A - Unspecified displaced fracture of first cervical vertebra, initial encounter for closed fracture (3) C2 cervical fracture Qualifiers: Encounter type: initial encounter Fracture type: closed Fracture morphology : unspecified fracture morphology Fracture alignment: nondisplaced Qualified Code(s): S12.101A - Unspecified nondisplaced fracture of second cervical vertebra, initial encounter for closed fracture (4) Posterior displaced Type II dens fracture Qualifiers: Encounter type: initial encounter Fracture type: closed Qualified Code(s): S12.111A - Posterior displaced Type II dens fracture, initial encounter for closed fracture
--- NOTE | 2018-01-18 17:42 | P.DS ---
Date of admission: 01/10/18 16:53 Primary care physician: Luis Barroso MD Anticipated date of discharge: 01/18/18 Brief History from admission: This 77-year-old female presents with severe neck pain. She does report history of cervical fusion and chronic neck pain. Patient took ibuprofen today for her pain. She also has been taking Tylenol without relief. Her family member at bedside states that she cannot rule out a fall. The patient adamantly denies falling. However, family member states that she does have history of dementia and has fallen in the past. The patient denies any headache, chest pain or shortness of breath. No nausea, vomiting, diarrhea. Blood pressure is 99/66. Family at her bedside states this is the patient's normal blood pressure. Patient states pain is 5/10 as long as she is keeping her head still. However, rotation of the cervical spine increases the pain to 9/10. She does report history of similar pain in the past. Moderate severity. CT of the neck reveals a fracture of C1 in [address] and a fracture of the dens of C2. She is in a cervical collar on arrival to the ICU. She is awake and alert and conversant. DS: Diagnosis - Discharge Diagnosis (1) Dementia Status: Chronic (2) C1 cervical fracture Status: Acute (3) C2 cervical fracture Status: Acute (4) Posterior displaced Type II dens fracture Status: Acute (5) Hypertension Status: Chronic DS: Medications - Discharge Medications Prescriptions: hydrocodone-acetaminophen 1 tab PO Q4H PRN #18 tab PRN Reason: Pain 1-10 Or Temp > 101 F pantoprazole [Protonix] 40 mg PO DAILY #30 tab DS: Summary Hospital Course: C2 fracture 77-year-old female status post surgical repair with halo placement for a C2 spine fracture. Neurosurgery was consulted. She received pain control as needed. She worked with PT and OT. She will be discharged to a SNF and will follow-up with neurosurgery as an outpt. She will continue pain medications as needed. E-Forcse was checked. She was placed on the CIWA protocol and received a MV, thiamine and folate. We added Ensure with meals and her diet was advanced. She will need to follow up with her PCP. Hematemesis The pt vomited black liquid. Hemoglobin dropped. Hemoccult positive. Will repeat CBC today and tomorrow. If stable she may be discharged with outpatient GI follow-up. If hemoglobin decreased will consult GI in-house. - Time Spent with Patient Total time spent providing and/or coordinating discharge services: Greater than 30 minutes Exam Vital signs: Vital Signs 01/17/18 20:00 01/17/18 21:14 01/18/18 00:00 Temperature 97.8 F 97.9 F Pulse Rate 68 57 L Respiratory Rate 18 16 Blood Pressure 90/54 L 142/70 H Pulse Oximetry 97 94 L 97 01/18/18 04:00 01/18/18 08:00 01/18/18 11:45 Temperature 98.2 F 97.8 F Pulse Rate 67 60 Respiratory Rate 20 20 Blood Pressure 149/67 H 145/62 H Pulse Oximetry 92 L 91 L 95 01/18/18 12:00 01/18/18 13:56 01/18/18 16:00 Temperature 98.2 F 98.2 F Pulse Rate 107 H 63 Respiratory Rate 20 18 20 Blood Pressure 131/60 157/68 H Pulse Oximetry 90 L 96 Intake & Output 01/17/18 01/18/18 01/18/18 18:59 06:59 18:59 Intake Total 960 / 960 Balance 960 / 960 Intake: Oral 960 / 960 Other: # Voids 2 2 Date of Last Bowel Movement 01/17/18 01/17/18 01/17/18 # Bowel Movements 1 1 Results Procedures completed during hospitalization: See hospital course - Impressions ITS Impressions Cervical Spine CT 01/10/18 13:45 CONCLUSION: 1. Fracture of the mid to upper waist of C2 with minimal anterior apex angulation. 2. Fractures involving the posterior lateral arches of C1 bilaterally. 3. Minimal anterolisthesis C2 on 3, C3 on 4 and C4 on 5. 4. There is anterior fusion C6-7. Head CT 01/10/18 13:45 CONCLUSION: 1. No acute intracranial abnormality. . Cervical Spine X-Ray 01/11/18 12:17 CONCLUSION: Fractures and alignment as described. Discharge Plan - Discharge Disposition Patient Disposition: 03 Discharge to SNF - Discharge Condition Condition: Stable - Discharge Order Discharge Orders: Discharge Order (Routine); Ordered 01/18/18 Ordered By: Macario Ray - Discharge Details Anticipated Discharge Date: 01/18/18 - Physicians Team Primary Care Provider: Luis Barroso Attending Provider: Macario Ray Other Providers: Abdulaziz Gottlieb MD ; Rosalio Webera ; [facility],[place]
[2018-01-18 18:28] LABS: Hematocrit 30.1 % (35.0-46.0); Hemoglobin 10.2 gm/dL (11.6-15.3); Mean Corpuscular Volume 103.1 fL (80.0-100.0); Mean Platelet Volume 8.6 fL (7.0-11.0); Platelet Count 364 th/mm3 (150-450); Red Blood Count 2.92 mil/mm3 (4.00-5.30); Red Cell Distribution Width 12.7 % (11.6-17.2)
[2018-01-19 09:13] LABS: Baso # (Auto) 0.1 th/mm3 (0.0-0.2); Baso % (Auto) 1.4 % (0.0-2.0); Eos # (Auto) 0.3 th/mm3 (0.0-0.4); Eos % (Auto) 3.9 % (0.0-4.0); Hematocrit 30.4 % (35.0-46.0); Hemoglobin 10.1 gm/dL (11.6-15.3); Lymph # (Auto) 1.2 th/mm3 (1.0-4.8); Lymph % (Auto) 17.2 % (9.0-44.0); Mean Corpuscular HGB Conc 33.1 % (32.0-36.0); Mean Corpuscular Volume 105.6 fL (80.0-100.0); Mean Platelet Volume 8.8 fL (7.0-11.0); Mono # (Auto) 0.7 th/mm3 (0.0-0.9); Neut # (Auto) 4.6 th/mm3 (1.8-7.7); Neut % (Auto) 67.5 % (16.0-70.0); Platelet Count 362 th/mm3 (150-450); Red Blood Count 2.88 mil/mm3 (4.00-5.30); White Blood Count 6.8 th/mm3 (4.0-11.0)
[2018-01-19] MEDS: Folic Acid 1 MG Tablet PO SCH (10:01)
[2018-01-19] MEDS: Loratadine 10 MG Tablet PO SCH (10:01)
[2018-01-19] MEDS: Pantoprazole Inj 40 MG Vial IV.PUSH SCH (10:03)
[2018-01-19] MEDS: Senna/Docusate Sodium 8.6/50 MG Tablet PO SCH (10:03)
[2018-01-19] MEDS: Ferrous Sulfate 325 MG Tablet PO SCH (13:16)
[2018-01-19] MEDS ORDERED: Acetaminophen 325 MG Tablet PO ONE (13:20)
--- NOTE | 2018-01-19 13:41 | P.PNIM ---
Subjective Interval history: -year-old female with C2 fracture of the dens, status post halo placement. She is doing well and expecting to go to rehab today. Her son is at bedside. Physical Exam Vital signs: Vital Signs 01/18/18 13:56 01/18/18 16:00 01/18/18 20:00 Temperature 98.2 F 98.2 F Pulse Rate 63 66 Respiratory Rate 18 20 17 Blood Pressure 157/68 H 112/58 L Pulse Oximetry 96 98 01/19/18 00:00 01/19/18 04:00 01/19/18 08:00 Temperature 97.8 F 97.3 F L 97.4 F L Pulse Rate 67 71 59 L Respiratory Rate 18 18 17 Blood Pressure 124/60 121/72 123/69 Pulse Oximetry 95 94 L 96 Intake & Output 01/18/18 01/19/18 01/19/18 18:59 06:59 18:59 Intake Total 480 / 480 Output Total 3 / 3 Balance 477 / 477 Intake: Oral 480 / 480 Output: Urine 3 / 3 Other: # Voids 4 Date of Last Bowel Movement 01/17/18 01/17/18 01/19/18 Narrative: GENERAL: NAD. HEAD: Halo in place. NECK: Supple, trachea midline. No lymphadenopathy. EYES: No scleral icterus. No injection or drainage. CARDIOVASCULAR: Regular rate and rhythm without murmurs, gallops, or rubs. RESPIRATORY: Breath sounds equal bilaterally. No accessory muscle use. GASTROINTESTINAL: Abdomen soft, non-tender, nondistended. MUSCULOSKELETAL: No cyanosis, or edema. Halo external fixture in place over her head and shoulders SKIN: Warm and dry. NEURO: No focal neurological deficits. - Urinary Catheter Management Straight Cath placed during this visit: yes Reason for continuing: Not indwelling catheter Insertion date: 01/11/18 Insertion time: 05:28 Results - Labs CBC & Chem 7: 01/19/18 07:37 01/16/18 06:22 Laboratory Results - last 24 hr 01/18/18 01/19/18 18:00 07:37 WBC 8.0 6.8 RBC 2.92 L 2.88 L Hgb 10.2 L 10.1 L Hct 30.1 L 30.4 L MCV 103.1 H 105.6 H MCH 35.0 H 35.0 H MCHC 34.0 33.1 RDW 12.7 13.0 Plt Count 364 D 362 MPV 8.6 8.8 Neut % (Auto) 67.5 Lymph % (Auto) 17.2 Clarke % (Auto) 10.0 H Eos % (Auto) 3.9 Baso % (Auto) 1.4 Neut # (Auto) 4.6 Lymph # (Auto) 1.2 Clarke # (Auto) 0.7 Eos # (Auto) 0.3 Baso # (Auto) 0.1 WBC Differential . Differential Comment Auto diff final - Procedures See hospital course Assessment and Plan - Assessment (1) Dementia Code(s): F03.90 - Unspecified dementia without behavioral disturbance Status: Chronic (2) C1 cervical fracture Code(s): S12.000A - Unspecified displaced fracture of first cervical vertebra, initial encounter for closed fracture Status: Acute (3) C2 cervical fracture Code(s): S12.100A - Unspecified displaced fracture of second cervical vertebra, initial encounter for closed fracture Status: Acute (4) Posterior displaced Type II dens fracture Code(s): S12.111A - Posterior displaced Type II dens fracture, initial encounter for closed fracture Status: Acute (5) Hypertension Code(s): I10 - Essential (primary) hypertension Status: Chronic - Plan C2 fracture, dens Halo in place of her head and shoulders, follow-up with neurosurgery as outpatient Patient will benefit from a period of rehab at [facility] Anemia Patient has history of gastritis, vomited small amount of blood earlier during admission, but hemoglobin remains stable at 10.1 today Hemoglobin is stable and GI issues can be followed up as outpatient with gastroenterology If bleeding returns or worsens she should come back to the ER Discharge planning Patient is safe for discharge today, labs appear stable (2) C1 cervical fracture Qualifiers: Encounter type: initial encounter Fracture type: closed Fracture morphology : unspecified fracture morphology Fracture alignment: displaced Qualified Code (s): S12.000A - Unspecified displaced fracture of first cervical vertebra, initial encounter for closed fracture (3) C2 cervical fracture Qualifiers: Encounter type: initial encounter Fracture type: closed Fracture morphology : unspecified fracture morphology Fracture alignment: nondisplaced Qualified Code(s): S12.101A - Unspecified nondisplaced fracture of second cervical vertebra, initial encounter for closed fracture (4) Posterior displaced Type II dens fracture Qualifiers: Encounter type: initial encounter Fracture type: closed Qualified Code(s): S12.111A - Posterior displaced Type II dens fracture, initial encounter for closed fracture
== END 2018-01-19 13:53 ==
LOC: PHEFT 12:07 → PHEDA 16:53 → N03 19:27 → N05 01-13 13:09
PROVIDERS: ADMIT Family Medicine; ATTEND Family Medicine